=== PATIENT | male | born 1980 | race Caucasian/White ===

== ENCOUNTER 2021-05-07 09:34 | Inpatient (IN) | payer OTHER ==
[2021-05-07] MEDS ORDERED: PIPERACILLIN-TAZOBACTAM 3.375 GM in SODIUM CHLORIDE 0.9% 100 ML IVPB STA (09:51)
[2021-05-07] MEDS ORDERED: ONDANSETRON 4 MG/2 ML VIAL IVP STA (10:14)
[2021-05-07] MEDS ORDERED: HYDROmorphone 1 MG/ML 1 ML SYRINGE IVP STA (10:14)
--- NOTE | 2021-05-07 10:16 | ED ---
Abdominal Pain HPI - General Chief Complaint: Abdominal Pain Stated Complaint: Appendicitis Time Seen by Provider: 05/07/21 09:38 Source: patient, RN notes reviewed Mode of arrival: ambulatory Limitations: no limitations - History of Present Illness Initial Comments: This a 40-year-old male presents emergency from chief complaint of acute appendicitis. Patient was seen in the [facility] and transferred here for acute appendicitis on CT. Patient symptoms started last night worsened overnight including nausea, decreased appetite. Patient had fever, chills. Patient has right lower quadrant abdominal pain. He denies any chest pain shortness breath no cough or cold-like symptoms. - Related Data Allergies Allergy/AdvReac Type Severity Reaction Status Date / Time No Known Allergies Allergy Verified 05/07/21 09:39 Review of Systems ROS Statement: Those systems with pertinent positive or pertinent negative responses have been documented in the HPI. ROS Other: All systems not noted in ROS Statement are negative. Past Medical History Past Medical History: Hypertension Past Surgical History: Hernia Repair Past Psychological History: No Psychological Hx Reported Smoking Status: Current every day smoker Past Alcohol Use History: Occasional Past Drug Use History: None Reported General Exam Limitations: no limitations General appearance: alert, in no apparent distress Head exam: Present: atraumatic, normocephalic, normal inspection Respiratory exam: Present: normal lung sounds bilaterally. Absent: respiratory distress, wheezes, rales, rhonchi, stridor Cardiovascular Exam: Present: regular rate, normal rhythm, normal heart sounds. Absent: systolic murmur, diastolic murmur, rubs, gallop, clicks GI/Abdominal exam: Present: soft, tenderness (Right lower quadrant), normal bowel sounds. Absent: distended, guarding, rebound, rigid Back exam: Absent: CVA tenderness (R), CVA tenderness (L) Course Vital Signs 05/07/21 09:35 Temperature 99.4 F Pulse Rate 82 Respiratory 18 Rate Blood Pressure 96/57 O2 Sat by Pulse 99 Oximetry Medical Decision Making - Medical Decision Making Patient was a transfer from outside hospital for acute appendicitis. Patient admitted to Dr. Alanis. Disposition Clinical Impression: Acute appendicitis Disposition: ADMITTED IP TO THIS HOSP Condition: Fair Referrals: Darrell Roberts MD [Primary Care Provider] - 1-2 days
[2021-05-07] MEDS: SODIUM CHLORIDE 0.9% 1,000 ML IV SCH ×2 (10:43→15:52)
[2021-05-07] MEDS ORDERED: NALOXONE 0.4 MG/ML 1 ML VIAL IV PRN (11:12)
--- NOTE | 2021-05-07 12:07 | P.GSHP ---
History of Present Illness H&P Date: 05/07/21 Chief Complaint: Appendicitis Patient's a 40-year-old man who began developing abdominal pain yesterday. Progressively worse so he went into the ER in [place] and had workup showing acute appendicitis on computed tomography scan. - Review of Systems All systems: negative Past Medical History Past Medical History: Hypertension Past Surgical History: Hernia Repair Past Psychological History: No Psychological Hx Reported Smoking Status: Current every day smoker Past Alcohol Use History: Occasional Past Drug Use History: None Reported Medications and Allergies Home Medications Medication Instructions Recorded Confirmed Type Montelukast Sodium [Singulair] 10 mg PO DAILY 05/07/21 05/07/21 History lisinopriL [Zestril] 10 mg PO DAILY 05/07/21 05/07/21 History Allergies Allergy/AdvReac Type Severity Reaction Status Date / Time No Known Allergies Allergy Verified 05/07/21 10:32 Surgical - Exam Osteopathic Statement: *. No significant issues noted on an osteopathic structural exam other than those noted in the History and Physical/Consult. Vital Signs Temp Pulse Resp BP Pulse Ox 99.4 F 82 18 96/57 99 05/07/21 09:35 05/07/21 09:35 05/07/21 09:35 05/07/21 09:35 05/07/21 09:35 - General well developed, well nourished, no distress - Eyes normal ocular movement - Neck trachea midline - Respiratory normal respiratory effort, clear to auscultation - Cardiovascular Rhythm: regular - Abdomen Abdomen: soft, tender (Right lower quadrant), surgical scars (Scar under the umbilicus from previous hernia repair) Results - Imaging CT scan - abdomen: report reviewed Assessment and Plan (1) Acute appendicitis Current Visit: Yes Status: Acute Code(s): K35.80 - UNSPECIFIED ACUTE APPENDICITIS SNOMED Code(s): 15383663 Plan: Laparoscopic appendectomy possible open. The procedure, risks and complications were discussed. Questions were encouraged and answered. Usual postoperative course was discussed.
[2021-05-07] MEDS: HYDROmorphone 0.5 MG/0.5 ML SYRINGE IVP PRN (12:36)
[2021-05-07] MEDS ORDERED: ceFAZolin 1,000 MG VIAL ONE (13:07)
[2021-05-07] MEDS ORDERED: NEOSTIGMINE 1 MG/ML 10 ML VIAL ONE (13:07)
[2021-05-07] MEDS ORDERED: ONDANSETRON 4 MG/2 ML VIAL ONE (13:07)
[2021-05-07] MEDS ORDERED: DEXAMETHASONE SOD PHOSPHATE 10 MG/ML 1 ML VIAL ONE (13:07)
[2021-05-07] MEDS ORDERED: SODIUM CHLORIDE 0.9% 100 ML BAG ONE (13:07)
[2021-05-07] MEDS ORDERED: GLYCOPYRROLATE 0.2 MG/ML 2 ML VIAL ONE (13:07)
[2021-05-07] MEDS ORDERED: HYDROmorphone (PF) 1 MG/ML ONE (13:07)
[2021-05-07] MEDS ORDERED: LIDOCAINE 1% INJ 10MG/ML (20 ML MDV) ONE (13:07)
[2021-05-07] MEDS ORDERED: ROCURONIUM 10 MG/ML (5 ML VIAL) IV ONE (13:07)
[2021-05-07] MEDS ORDERED: .fentaNYL (PF) 50 MCG/ML 2 ML AMP ONE (13:07)
[2021-05-07] MEDS ORDERED: SUCCINYLCHOLINE CHLORIDE 100 MG/5 ML SYR IV ONE (13:07)
[2021-05-07] MEDS ORDERED: MIDAZOLAM 2 MG/2 ML VIAL ONE (13:07)
[2021-05-07] MEDS ORDERED: PROPOFOL 10 MG/ML 20 ML VIAL IV ONE (13:07)
[2021-05-07] MEDS ORDERED: SODIUM CHLORIDE 0.9% 1,000 ML IV ONE (13:11)
[2021-05-07] MEDS ORDERED: BUPIVACAINE (PF) 0.25% 30 ML VIAL SQ ONE (13:11)
[2021-05-07] MEDS ORDERED: ceFAZolin 1,000 MG VIAL MISCELLANE ONE (13:28)
[2021-05-07] MEDS ORDERED: LACTATED RINGERS 1,000 ML IV ONE (14:00)
--- NOTE | 2021-05-07 14:30 | P.OP ---
Date of Procedure: 05/07/21 Preoperative Diagnosis: Acute appendicitis Postoperative Diagnosis: Acute gangrenous appendicitis Procedure(s) Performed: Laparoscopic appendectomy Anesthesia: STEPH Surgeon: Crystal Alanis Estimated Blood Loss (ml): 10 Pathology: other Condition: stable Disposition: PACU Indications for Procedure: Patient presented with abdominal pain and work at [facility] showing acute appendicitis Description of Procedure: Patient's taken the operative suite where he is prepped and draped in the usual sterile manner under a general endotracheal anesthetic. A supraumbilical incision is made away from a prior umbilical hernia repair. Optical trocar was placed into the abdominal cavity and pneumoperitoneum was established with CO2 gas. The abdominal and pelvic contents were examined. The appendix was not easily seen and therefore the terminal ileum and cecum were mobilized along the white line of Toldt. This was then rotated medially. The appendix was retrocecal. It was going between the terminal ileum and cecum posteriorly. It was gangrenous. It was very tediously dissected free. The base the appendix was ligated using a stapler. The appendix was then tediously dissected free. There is some necrotic fatty tissue and the appendix was falling apart during dissection. The pieces of the appendix was then placed into a specimen retrieval bag. Paracolic gutter and retrocecal area were then copiously irrigated and aspirated. The mucosa all appeared intact. There is no bleeding noted. The pneumoperitoneum was released. The trochars were removed. The specimen retrieval bag was removed. The fascia above the umbilicus was closed w ith 0 Vicryl. The skin incisions were closed with ledy. Sterile dressings were applied. He tolerated the procedure without difficulty and was taken recovery room in satisfactory condition. According to or personnel, all counts were correct.
[2021-05-07] MEDS ORDERED: KETOROLAC 30 MG/ML 1 ML VIAL ONE (14:51)
[2021-05-07] MEDS: KETOROLAC 15 MG/ML 1 ML VIAL IVP SCH (14:52)
[2021-05-07] MEDS: PIPERACILLIN-TAZOBACTAM 3.375 GM in SODIUM CHLORIDE 0.9% 100 ML IVPB SCH (15:43)
[2021-05-07] MEDS: D5-0.45% NACL WITH KCL 20MEQ/L 1,000 ML IV SCH (16:27)
[2021-05-07] MEDS: HYDROmorphone 1 MG/ML 1 ML SYRINGE IVP PRN ×3 (16:28→22:26)
[2021-05-08] MEDS ORDERED: KETOROLAC 15 MG/ML 1 ML VIAL ONE
[2021-05-08] MEDS: PIPERACILLIN-TAZOBACTAM 3.375 GM in SODIUM CHLORIDE 0.9% 100 ML IVPB SCH ×4 (01:00→23:27)
[2021-05-08] MEDS: KETOROLAC 15 MG/ML 1 ML VIAL IVP SCH (01:01)
[2021-05-08] MEDS: HYDROmorphone 1 MG/ML 1 ML SYRINGE IVP PRN ×5 (01:37→19:24)
[2021-05-08] MEDS: SODIUM CHLORIDE 0.9% 1,000 ML IV SCH ×5 (01:40→23:12)
[2021-05-08] MEDS: D5-0.45% NACL WITH KCL 20MEQ/L 1,000 ML IV SCH ×2 (03:37→17:33)
[2021-05-08] MEDS: KETOROLAC 30 MG/ML 1 ML VIAL IVP SCH ×4 (05:56→23:28)
[2021-05-08] MEDS: HYDROcodone/APAP 5-325MG 1 EACH TAB PO PRN ×2 (07:56→16:23)
[2021-05-08 11:00] LABS: Basophils # (A) 0.03 X 10*3/uL (0.00-0.10); Basophils % (A) 0.2 %; Eosinophils # (A) 0 X 10*3/uL (0.04-0.35); Eosinophils % (A) 0 %; HCT 36.9 % (39.6-50.0); HGB 12.3 g/dL (13.0-17.0); Lymphocytes # (A) 1.05 X 10*3/uL (0.90-5.00); Lymphocytes % (A) 5.3 %; MCH 31.1 pg (27.0-32.0); MCHC 33.3 g/dL (32.0-37.0); MCV 93.4 fL (80.0-97.0); Mean Platelet Volume 10.4 fL (9.5-12.2); Monocytes # (A) 1.41 X 10*3/uL (0.20-1.00); Monocytes % (A) 7.1 %; Neutrophils # (A) 17.29 X 10*3/uL (1.80-7.70); Neutrophils % (A) 86.9 %; Platelet Count 310 X 10*3/uL (140-440); RBC 3.95 X 10*6/uL (4.40-5.60); RDW 12.6 % (11.5-14.5); WBC 19.88 X 10*3/uL (4.50-10.00)
--- NOTE | 2021-05-08 12:48 | P.PN ---
Subjective Progress Note Date: 05/08/21 Principal diagnosis: The patient is seen on rounds. Denies any incisional pain. Complaining of some Back pain. No nausea, vomiting or shortness of breath. Tolerating a diet. Am bulating in the halls. Objective - Vital Signs Vital signs: Vital Signs Temp 98.3 F 05/08/21 06:56 Pulse 85 05/08/21 06:56 Resp 18 05/08/21 06:56 BP 110/71 05/08/21 06:56 Pulse Ox 96 05/08/21 06:56 Intake & Output 05/07/21 05/08/21 05/08/21 18:59 06:59 18:59 Intake Total 1740 240 Output Total 670 Balance 1070 240 Weight 131.542 kg Intake: IV 1500 Piperacillin-Tazobactam 3 100 .375 gm In Sodium Chloride 0.9% 100 ml @ 200 mls/hr IVPB ONCE STA Rx#:[id number] Oral 240 240 Output: Urine 650 Estimated Blood Loss 20 Other: # Voids 1 1 1 # Bowel Movements 0 - Constitutional General appearance: Present: cooperative, no acute distress - Respiratory Respiratory: bilateral: CTA - Gastrointestinal General gastrointestinal: Present: normal bowel sounds, soft Localized gastrointestinal: surgical scar: diffuse (Incisions intact, clean and dry) - Labs CBC & Chem 7: 05/08/21 05:22 Labs: Abnormal Lab Results - Last 24 Hours (Table) 05/08/21 Range/Units 05:22 WBC 19.88 H (4.50-10.00) X 10*3/uL RBC 3.95 L (4.40-5.60) X 10*6/uL Hgb 12.3 L (13.0-17.0) g/dL Hct 36.9 L (39.6-50.0) % Immature Gran # 0.10 H (0.00-0.04) X 10*3/uL Neutrophils # 17.29 H (1.80-7.70) X 10*3/uL Monocytes # 1.41 H (0.20-1.00) X 10*3/uL Eosinophils # 0 L (0.04-0.35) X 10*3/uL Assessment and Plan (1) Acute appendicitis Current Visit: Yes Status: Acute Code(s): K35.80 - UNSPECIFIED ACUTE APPENDICITIS SNOMED Code(s): 28052251 (2) Acute gangrenous appendicitis with perforation and peritonitis Current Visit: Yes Status: Acute Code(s): K35.32 - ACUTE APPENDICITIS WITH PERF AND LOC PERITONITIS, W/O ABSCS SNOMED Code(s): 06571915 Plan: Patient does have leukocytosis. The appendix was gangrenous and falling apart at the time of surgery. I recommend he continue IV antibiotics. We'll repeat CBC tomorrow. Encourage ambulation. Progressing slowly
[2021-05-08] MEDS ORDERED: TEMAZEPAM 15 MG CAP PO PRN (13:35)
[2021-05-09] MEDS: HYDROcodone/APAP 5-325MG 1 EACH TAB PO PRN ×3 (00:40→17:12)
[2021-05-09] MEDS: HYDROmorphone 1 MG/ML 1 ML SYRINGE IVP PRN ×4 (02:23→23:44)
[2021-05-09] MEDS: KETOROLAC 30 MG/ML 1 ML VIAL IVP SCH ×3 (06:07→17:11)
[2021-05-09] MEDS: D5-0.45% NACL WITH KCL 20MEQ/L 1,000 ML IV SCH (06:09)
[2021-05-09 07:47] LABS: HCT 37.6 % (39.0-53.0); HGB 12.4 gm/dL (13.0-17.5); MCH 31.2 pg (25.0-35.0); MCHC 32.8 g/dL (31.0-37.0); MCV 95.1 fL (80.0-100.0); Mean Platelet Volume 7.7; Platelet Count 312 k/uL (150-450); RBC 3.96 m/uL (4.30-5.90); RDW 12.1 % (11.5-15.5); WBC 12.5 k/uL (3.8-10.6)
[2021-05-09] MEDS: PIPERACILLIN-TAZOBACTAM 3.375 GM in SODIUM CHLORIDE 0.9% 100 ML IVPB SCH ×3 (07:55→23:43)
[2021-05-09] MEDS: SODIUM CHLORIDE 0.9% 1,000 ML IV SCH ×3 (07:55→23:50)
--- NOTE | 2021-05-09 13:48 | P.PN ---
Subjective Progress Note Date: 05/09/21 The patient is seen on rounds. His pain is improved. Has no appetite. Denies nausea or vomiting Objective - Vital Signs Vital signs: Vital Signs Temp 99.2 F 05/09/21 07:03 Pulse 108 H 05/09/21 07:03 Resp 18 05/09/21 07:03 BP 108/64 05/09/21 07:03 Pulse Ox 95 05/09/21 07:03 Intake & Output 05/08/21 05/09/21 05/09/21 18:59 06:59 18:59 Intake Total 360 Balance 360 Intake: Oral 360 Other: # Voids 2 3 1 # Bowel Movements 0 - Constitutional General appearance: Present: cooperative, no acute distress - Respiratory Respiratory: bilateral: CTA - Gastrointestinal General gastrointestinal: Present: decreased bowel sounds, soft - Labs CBC & Chem 7: 05/09/21 06:36 Labs: Abnormal Lab Results - Last 24 Hours (Table) 05/09/21 Range/Units 06:36 WBC 12.5 H (3.8-10.6) k/uL RBC 3.96 L (4.30-5.90) m/uL Hgb 12.4 L (13.0-17.5) gm/dL Hct 37.6 L (39.0-53.0) % Assessment and Plan (1) Acute appendicitis Current Visit: Yes Status: Acute Code(s): K35.80 - UNSPECIFIED ACUTE APPENDICITIS SNOMED Code(s): 13224716 (2) Acute gangrenous appendicitis with perforation and peritonitis Current Visit: Yes Status: Acute Code(s): K35.32 - ACUTE APPENDICITIS WITH PERF AND LOC PERITONITIS, W/O ABSCS SNOMED Code(s): 76099492 Plan: There is concern for terminal ileum seen on his pathology report. This appendix was very gangrenous and retrocecal and behind the ileum. I will order a computed tomography scan with oral contrast to rule out any sort of leak from the terminal ileum. Make him nothing by mouth. Further recommendations to follow.
[2021-05-09] MEDS: IOPAMIDOL CONTRAST (ORAL USE) VIAL PO PRN ×2 (14:17→15:15)
--- NOTE | 2021-05-09 22:58 | CT ---
EXAMINATION TYPE: CT abdomen pelvis w con DATE OF EXAM: 05/09/2021 COMPARISON: 05/07/2021 CT abdomen pelvis from [facility]. HISTORY: /o leak from terminal ileum. Recent laurent CT DLP: 2039 mGycm Automated exposure control for dose reduction was used. TECHNIQUE: Helical acquisition of images was performed from the lung bases through the pelvis. CONTRAST: Performed with Oral Contrast and with IV Contrast, patient injected with 100 mL of Isovue 370. FINDINGS: LUNG BASES: Normal. LIVER: Normal. BILIARY SYSTEM: Normal. PANCREAS: Normal. SPLEEN: Normal. ADRENALS: Normal. KIDNEYS: Normal. BOWEL: There is oral contrast within the stomach and proximal duodenum. Patient appears status post appendectomy. There is right paracolic gutter haziness and edema, and edema within the right posterio r pararenal space. Within the right lower quadrant, medial to the cecum, there is a 9.0 x 5.3 x 9.2 c m fluid and gas collection within the mesentery. PERITONEUM: Right paracolic gutter edema and pericecal fluid and gas collection as above. There is s mall scattered pneumoperitoneum of the upper abdomen. LYMPH NODES: No lymphadenopathy. PELVIS: Normal. VASCULATURE: Abdominal aorta normal in caliber. MUSCULOSKELETAL: Degenerative changes of the spine. Bilateral L5 pars defects. IMPRESSION: Patient appears status post appendectomy. There is fluid within the right paracolic gutter. Medial to the cecum there is a 9.0 x 5.3 x 9.2 cm focal fluid and gas collection likely representing abscess. There are scattered areas of pneumoperitoneum. Oral contrast is primarily within the stomach. If ther e is concern for abnormal leakage of oral contrast, repeat CT of the pelvis can be performed with ora l contrast reaches the cecum.
[2021-05-10] MEDS: D5-0.45% NACL WITH KCL 20MEQ/L 1,000 ML IV SCH ×2 (04:55→08:43)
[2021-05-10] MEDS: HYDROmorphone 1 MG/ML 1 ML SYRINGE IVP PRN ×3 (04:55→12:58)
[2021-05-10] MEDS: ACETAMINOPHEN TAB 325 MG TAB PO PRN (08:10)
[2021-05-10] MEDS: PIPERACILLIN-TAZOBACTAM 3.375 GM in SODIUM CHLORIDE 0.9% 100 ML IVPB SCH ×2 (08:11→14:44)
[2021-05-10] MEDS ORDERED: SODIUM CHLORIDE 0.9% 500 ML 500 ML IV ONE (08:12)
[2021-05-10 08:22] LABS: HCT 37.1 % (39.0-53.0); HGB 12.2 gm/dL (13.0-17.5); MCH 30.8 pg (25.0-35.0); MCHC 32.9 g/dL (31.0-37.0); MCV 93.6 fL (80.0-100.0); Platelet Count 363 k/uL (150-450); RBC 3.97 m/uL (4.30-5.90)
[2021-05-10 08:36] LABS: African American GFR (CKD) >90 (>60 ml/min/1.73 sqM); Anion Gap 10 mmol/L; Blood Urea Nitrogen 23 mg/dL (9-20); Calcium 8.5 mg/dL (8.4-10.2); Carbon Dioxide 23 mmol/L (22-30); Chloride 99 mmol/L (98-107); Glucose 104 mg/dL (74-99); Non-African American GFR(CKD) >90 (>60 ml/min/1.73 sqM); Potassium 4.3 mmol/L (3.5-5.1); Sodium 132 mmol/L (137-145)
[2021-05-10] MEDS: SODIUM CHLORIDE 0.9% 1,000 ML IV SCH ×3 (08:43→21:45)
[2021-05-10 09:23] LABS: Glucose,Whole Blood 107 mg/dL (75-99)
--- NOTE | 2021-05-10 09:40 | P.PN ---
Subjective Progress Note Date: 05/10/21 The patient is seen on rounds. He went for CT yesterday afternoon. I was not called the report until about midnight. He is complaining of not feeling well today. He is hungry and thirsty. Denies nausea or vomiting Objective - Vital Signs Vital signs: Vital Signs Temp 100.9 F H 05/10/21 08:00 Pulse 127 H 05/10/21 08:00 Resp 18 05/10/21 08:00 BP 142/70 05/10/21 08:00 Pulse Ox 95 05/10/21 08:00 Intake & Output 05/09/21 05/10/21 05/10/21 18:59 06:59 18:59 Intake Total 120 Balance 120 Intake: Oral 120 Other: Voiding Method Toilet # Voids 1 - Constitutional Constitutional Comment(s): appears ill today General appearance: Present: cooperative - Respiratory Respiratory: bilateral: CTA - Gastrointestinal General gastrointestinal: Present: decreased bowel sounds, distended - Labs CBC & Chem 7: 05/10/21 07:00 05/10/21 07:00 Labs: Abnormal Lab Results - Last 24 Hours (Table) 05/10/21 05/10/21 05/10/21 Range/Units 07:00 07:00 09:22 WBC 16.0 H (3.8-10.6) k/uL RBC 3.97 L (4.30-5.90) m/uL Hgb 12.2 L (13.0-17.5) gm/dL Hct 37.1 L (39.0-53.0) % Sodium 132 L (137-145) mmol/L BUN 23 H (9-20) mg/dL Glucose 104 H (74-99) mg/dL POC Glucose (mg/dL) 107 H (75-99) mg/dL - Imaging and Cardiology CT scan - abdomen: report reviewed Assessment and Plan (1) Acute appendicitis Current Visit: Yes Status: Acute Code(s): K35.80 - UNSPECIFIED ACUTE APPENDICITIS SNOMED Code(s): 54953991 (2) Acute gangrenous appendicitis with perforation and peritonitis Current Visit: Yes Status: Acute Code(s): K35.32 - ACUTE APPENDICITIS WITH PERF AND LOC PERITONITIS, W/O ABSCS SNOMED Code(s): 35946833 (3) Small bowel perforation Current Visit: Yes Status: Acute Code(s): K63.1 - PERFORATION OF INTESTINE (NONTRAUMATIC) SNOMED Code(s): 400744918 Plan: CT scan shows fluid collection in the right abdomen. His appendix was markedly gangrenous and falling apart. It was posterior to the ileum and cecum. Perforation is likely due to gangrenous changes and surrounding inflammation. Recommend he go to the OR for ex lap. This may able to be debrided and closed. May require a segmental bowel resection, less likely ostomy formation. We will do a washout placed drainage tubes continue IV antibiotics. The procedure risks and complications were discussed. Questions were encouraged and answered.
[2021-05-10] MEDS: HYDROcodone/APAP 5-325MG 1 EACH TAB PO PRN (10:33)
[2021-05-10 10:58] LABS: Partial Thromboplastin Time 24.7 sec (22.0-30.0); Prothrombin Time 11.1 sec (9.0-12.0)
[2021-05-10] MEDS: ONDANSETRON 4 MG/2 ML VIAL IVP PRN (13:42)
[2021-05-10] MEDS ORDERED: GLYCOPYRROLATE 0.2 MG/ML 2 ML VIAL ONE (14:03)
[2021-05-10] MEDS ORDERED: .fentaNYL (PF) 50 MCG/ML 2 ML AMP ONE (14:03)
[2021-05-10] MEDS ORDERED: MIDAZOLAM 2 MG/2 ML VIAL ONE (14:03)
[2021-05-10] MEDS ORDERED: ROCURONIUM 10 MG/ML (5 ML VIAL) IV ONE (14:03)
[2021-05-10] MEDS ORDERED: PROPOFOL 10 MG/ML 20 ML VIAL IV ONE (14:03)
[2021-05-10] MEDS ORDERED: LIDOCAINE 1% INJ 10MG/ML (20 ML MDV) ONE (14:03)
[2021-05-10] MEDS ORDERED: HYDROmorphone (PF) 1 MG/ML ONE (14:03)
[2021-05-10] MEDS ORDERED: .MORPHINE SULFATE (INJ) 10 MG/ML SYRINGE ONE (14:03)
[2021-05-10] MEDS ORDERED: NEOSTIGMINE 1 MG/ML 10 ML VIAL ONE (14:03)
[2021-05-10] MEDS ORDERED: SUCCINYLCHOLINE CHLORIDE 100 MG/5 ML SYR IV ONE (14:03)
[2021-05-10] MEDS: IV FLUID CONTINUATION 1,000 ML IV ONE ×2 (14:08→17:48)
[2021-05-10] MEDS ORDERED: SODIUM CHLORIDE 0.9% 1,000 ML IV ONE ×2 (14:10)
[2021-05-10] MEDS ORDERED: BUPIVACAIN-EPI 0.25%-1:200,000 30 ML VIAL SQ ONE (14:48)
[2021-05-10] MEDS ORDERED: LACTATED RINGERS 1,000 ML IV ONE ×2 (14:56→16:02)
--- NOTE | 2021-05-10 16:30 | P.OP ---
Date of Procedure: 05/10/21 Preoperative Diagnosis: Acute gangrenous appendicitis with small bowel perforation Postoperative Diagnosis: Acute gangrenous appendicitis with small bowel perforation and abscess Procedure(s) Performed: Exploratory laparotomy with ileocecectomy Anesthesia: STEPH Surgeon: Crystal Alanis Estimated Blood Loss (ml): 150 Pathology: other Condition: stable Disposition: PACU Indications for Procedure: The patient had a laparoscopic appendectomy for gangrenous appendicitis. Concern on the pathology was for some small bowel mucosa from the terminal ileum. A CT showed a fluid collection near the cecum Description of Procedure: The patient was taken the operative suite where he is prepped and draped in the usual sterile manner under general endotracheal anesthetic. A right paramedian incision was made. Subcutaneous tissues were divided. The fascia was incised. The muscle was split. The posterior fascia and peritoneum were incised. The abdominal cavity was entered. There is purulent bloody fluid on the right side of the abdomen. There was some phlegmon present. Terminal ileum and cecum were mobilized along the white line of Toldt. A Bookwalter retractor was placed. The bowel was brought up through the incision. The terminal ileum was run. There was some phlegmon which peeled away. At the terminal ileum or the appendix had been sitting there was a full-thickness perforation. It also appeared that the appendiceal stump had broken down and was leaking. Decision was made to do a resection. Opening was made in the mesentery of the small bowel and a RONNI stapler was placed and fired. The mesentery was divided with LigaSure. Site was then chosen on the mid descending colon and RONNI stapler was placed and fired where the tissue was pink and viable. Everything was in irrigated and aspirated. Gloves were changed. Antimesenteric border of the small bowel was tacked to the cecum. A small opening was made in each limb of the bowel and a RONNI stapler was placed and fired. The defect was closed in a 2 layered manner using 3-0 Vicryl. The anastomosis was reinforced with 3-0 Vicryl Lembert sutures. The abdomen was then irrigated and aspirated. Small bowel was allowed to lay in gentle loops. 2 small incisions were made and drains were placed. One was placed down into the pelvis and the other along the right paracolic gutter. A sterile fashion peritoneum were closed with 1 PDS. Subcutaneous the muscle layers were irrigated. Anterior fascia was closed with 1 PDS. Subcutaneous tissues were irrigated. The wound was packed. He tolerated the procedure without difficulty and was taken recovery room in satisfactory condition. According to or personnel, WERE correct.
[2021-05-10] MEDS: LACTATED RINGERS 1,000 ML IV SCH (17:47)
[2021-05-10] MEDS: METOCLOPRAMIDE 5 MG/ML 2 ML VIAL IVP SCH (17:52)
[2021-05-10] MEDS: KETOROLAC 30 MG/ML 1 ML VIAL IVP SCH (18:09)
[2021-05-10] MEDS: HYDROmorphone 0.5 MG/0.5 ML SYRINGE IVP PRN ×2 (19:50→23:17)
[2021-05-11] MEDS: PIPERACILLIN-TAZOBACTAM 3.375 GM in SODIUM CHLORIDE 0.9% 100 ML IVPB SCH ×3 (00:35→15:35)
[2021-05-11] MEDS: KETOROLAC 30 MG/ML 1 ML VIAL IVP SCH ×4 (00:35→17:58)
[2021-05-11] MEDS: METOCLOPRAMIDE 5 MG/ML 2 ML VIAL IVP SCH ×4 (00:35→17:58)
[2021-05-11] MEDS: HYDROmorphone 1 MG/ML 1 ML SYRINGE IVP PRN ×8 (02:35→23:25)
[2021-05-11] MEDS: SODIUM CHLORIDE 0.9% 1,000 ML IV SCH ×3 (06:01→23:15)
[2021-05-11] MEDS ORDERED: HYDROmorphone 0.5 MG/0.5 ML SYRINGE IVP PRN (07:00)
[2021-05-11] MEDS: LACTATED RINGERS 1,000 ML IV SCH (07:33)
[2021-05-11] MEDS: lisinopriL 10 MG TAB PO SCH (07:39)
[2021-05-11] MEDS: MONTELUKAST 10 MG TAB PO SCH (07:39)
[2021-05-11] MEDS: PANTOPRAZOLE 40 MG/10 ML VIAL IV SCH (07:44)
[2021-05-11] MEDS: ENOXAPARIN 40 MG/0.4 ML SYRINGE SQ SCH (07:44)
[2021-05-11 10:53] LABS: Basophils # (A) 0.05 X 10*3/uL (0.00-0.10); Basophils % (A) 0.5 %; Eosinophils # (A) 0.01 X 10*3/uL (0.04-0.35); Eosinophils % (A) 0.1 %; HCT 32.4 % (39.6-50.0); HGB 10.5 g/dL (13.0-17.0); Lymphocytes # (A) 0.61 X 10*3/uL (0.90-5.00); MCH 30.5 pg (27.0-32.0); MCHC 32.4 g/dL (32.0-37.0); MCV 94.2 fL (80.0-97.0); Mean Platelet Volume 10.3 fL (9.5-12.2); Monocytes # (A) 0.92 X 10*3/uL (0.20-1.00); Neutrophils % (A) 82.8 %; Platelet Count 376 X 10*3/uL (140-440); RBC 3.44 X 10*6/uL (4.40-5.60); RDW 13.2 % (11.5-14.5); WBC 10.25 X 10*3/uL (4.50-10.00)
[2021-05-11 13:05] LABS: Albumin 2.7 g/dL (3.8-4.9); Albumin/Globulin Ratio 1.18 (1.60-3.17); Anion Gap 11.9 mmol/L (4.00-12.00); BUN/Creat Ratio 26.85 Ratio (12.00-20.00); Carbon Dioxide 21.4 mmol/L (21.6-31.8); Globulin 2.3 g/dL (1.6-3.3); Non-African American GFR(CKD) 85.4 (60.0-200.0); Potassium 4.4 mmol/L (3.5-5.5); Total Bilirubin 0.5 mg/dL (0.30-1.20)
[2021-05-12] MEDS: PIPERACILLIN-TAZOBACTAM 3.375 GM in SODIUM CHLORIDE 0.9% 100 ML IVPB SCH ×4 (00:16→23:50)
[2021-05-12] MEDS: KETOROLAC 30 MG/ML 1 ML VIAL IVP SCH ×3 (00:16→12:03)
[2021-05-12] MEDS: METOCLOPRAMIDE 5 MG/ML 2 ML VIAL IVP SCH ×3 (00:17→12:03)
[2021-05-12] MEDS: HYDROmorphone 1 MG/ML 1 ML SYRINGE IVP PRN ×7 (02:32→23:50)
[2021-05-12] MEDS: SODIUM CHLORIDE 0.9% 1,000 ML IV SCH ×3 (06:03→21:00)
[2021-05-12] MEDS: PANTOPRAZOLE 40 MG/10 ML VIAL IV SCH (08:57)
[2021-05-12] MEDS: lisinopriL 10 MG TAB PO SCH (08:57)
[2021-05-12] MEDS: MONTELUKAST 10 MG TAB PO SCH (08:57)
[2021-05-12] MEDS: ENOXAPARIN 40 MG/0.4 ML SYRINGE SQ SCH (08:57)
--- NOTE | 2021-05-12 13:20 | P.PN ---
Subjective Progress Note Date: 05/12/21 The patient is postoperative day 2 ileocecectomy for abscess and leak. He feels much better today. He is began passing flatus and has had several bowel movements. His thirsty. He would like that G removed. Pain is controlled. No chest pain or shortness of breath Objective - Vital Signs Vital signs: Vital Signs Temp 98.1 F 05/12/21 07:05 Pulse 114 H 05/12/21 08:00 Resp 17 05/12/21 08:00 BP 108/70 05/12/21 07:05 Pulse Ox 97 05/12/21 07:05 Intake & Output 05/11/21 05/12/21 05/12/21 18:59 06:59 18:59 Intake Total 1040 Output Total 550 Balance 490 Intake: IV 1040 Piperacillin-Tazobactam 3 100 .375 gm In Sodium Chloride 0.9% 100 ml @ 25 mls/hr IVPB Q8HR DIDIER Rx# :[id number] Sodium Chloride 0.9% 1, 940 000 ml @ 130 mls/hr IV . Q7H42M DIDIER Rx#:[id number] Output: Drainage 100 Bilateral Lower Abdomen 100 Urine 450 Uretheral ([place]) 450 Other: Voiding Method Indwelling Catheter Urinal Urinal # Voids 1 2 - Constitutional General appearance: Present: cooperative, no acute distress - Respiratory Respiratory: bilateral: CTA - Cardiovascular Rhythm: regular - Gastrointestinal General gastrointestinal: Present: normal bowel sounds, soft Localized gastrointestinal: surgical scar: diffuse (Incision is open. No cellulitis or abscess. Dressing is clean) - Labs CBC & Chem 7: 05/11/21 05:58 05/11/21 05:58 Assessment and Plan (1) Acute appendicitis Current Visit: Yes Status: Acute Code(s): K35.80 - UNSPECIFIED ACUTE APPENDICITIS SNOMED Code(s): 85708719 (2) Acute gangrenous appendicitis with perforation and peritonitis Current Visit: Yes Status: Acute Code(s): K35.32 - ACUTE APPENDICITIS WITH PERF AND LOC PERITONITIS, W/O ABSCS SNOMED Code(s): 71882739 (3) Small bowel perforation Current Visit: Yes Status: Acute Code(s): K63.1 - PERFORATION OF INTESTINE (NONTRAUMATIC) SNOMED Code(s): 569208814 Plan: NG tube will be discontinued. Started on clear liquids and advance as tolerated in the morning. Continue IV antibiotics. We'll monitor him over the weekend. As long as the incision looks good, he can be partially closed on Saturday. is at bedside. Questions were encouraged and answered.
[2021-05-12] MEDS: LACTATED RINGERS 1,000 ML IV SCH (13:50)
[2021-05-12] MEDS: HYDROcodone/APAP 5-325MG 1 EACH TAB PO PRN (16:33)
[2021-05-13] MEDS: HYDROmorphone 1 MG/ML 1 ML SYRINGE IVP PRN ×7 (03:24→21:38)
[2021-05-13] MEDS: SODIUM CHLORIDE 0.9% 1,000 ML IV SCH ×3 (05:43→21:38)
[2021-05-13] MEDS: lisinopriL 10 MG TAB PO SCH (08:46)
[2021-05-13] MEDS: MONTELUKAST 10 MG TAB PO SCH (08:46)
[2021-05-13] MEDS: PANTOPRAZOLE 40 MG/10 ML VIAL IV SCH (08:47)
[2021-05-13] MEDS: PIPERACILLIN-TAZOBACTAM 3.375 GM in SODIUM CHLORIDE 0.9% 100 ML IVPB SCH ×2 (08:48→15:25)
[2021-05-13] MEDS: ENOXAPARIN 40 MG/0.4 ML SYRINGE SQ SCH (08:48)
[2021-05-13] MEDS: HYDROcodone/APAP 5-325MG 1 EACH TAB PO PRN ×3 (09:25→21:37)
--- NOTE | 2021-05-13 11:13 | P.PN ---
Subjective Progress Note Date: 05/13/21 Principal diagnosis: 40-year-old male postop day 3 status post open right hemicolectomy for ruptured appendicitis with postoperative stump blowout Patient resting quietly notes no nausea or vomiting patient has been passing flatus and has ambulated Objective - Vital Signs Vital signs: Vital Signs Temp 99.1 F 05/13/21 08:00 Pulse 66 05/13/21 08:00 Resp 18 05/13/21 08:00 BP 127/76 05/13/21 08:00 Pulse Ox 97 05/13/21 08:00 Intake & Output 05/12/21 05/13/21 05/13/21 18:59 06:59 18:59 Intake Total 500 237 Balance 500 237 Weight 131.542 kg Intake: Oral 500 237 Other: Voiding Method Urinal Urinal # Voids 2 - Constitutional Constitutional Comment(s): Patient resting quietly, no acute distress - EENT Eyes: Present: normal appearance - Respiratory Respiratory: bilateral: CTA - Cardiovascular Rhythm: regular (Protuberant mild tenderness noted and generalized fashion, open wound right paramedian clean) - Labs CBC & Chem 7: 05/11/21 05:58 05/11/21 05:58 Assessment and Plan Assessment: 40-year-old male status post right hemicolectomy return of bowel function noted afebrile hemodynamically stable Plan: We'll advance diet to low residue Continue IV fluids we'll taper to 100 mL per hour Attending IV antibiotics Plan for secondary wound closure Saturday pulmonary toilet and ambulation
[2021-05-13] MEDS: LACTATED RINGERS 1,000 ML IV SCH (17:30)
[2021-05-14] MEDS: PIPERACILLIN-TAZOBACTAM 3.375 GM in SODIUM CHLORIDE 0.9% 100 ML IVPB SCH ×3 (00:46→20:53)
[2021-05-14] MEDS: HYDROmorphone 1 MG/ML 1 ML SYRINGE IVP PRN ×9 (00:46→23:57)
[2021-05-14] MEDS: HYDROcodone/APAP 5-325MG 1 EACH TAB PO PRN ×3 (03:54→22:35)
[2021-05-14] MEDS: MONTELUKAST 10 MG TAB PO SCH (09:07)
[2021-05-14] MEDS: PANTOPRAZOLE 40 MG TABLET PO SCH (09:07)
[2021-05-14] MEDS: lisinopriL 10 MG TAB PO SCH (09:07)
[2021-05-14] MEDS: ENOXAPARIN 40 MG/0.4 ML SYRINGE SQ SCH (09:07)
[2021-05-14] MEDS: SODIUM CHLORIDE 0.9% 1,000 ML IV SCH ×2 (09:16→20:54)
--- NOTE | 2021-05-14 11:44 | P.PN ---
Subjective Progress Note Date: 05/14/21 Principal diagnosis: Postoperative day 4 auditory laparotomy with ileocecal resection for ruptured appendicitis postoperative leak An examination of patient's wound this morning RN noted possible fascial separation at superior aspect Objective - Vital Signs Vital signs: Vital Signs Temp 98.6 F 05/14/21 07:43 Pulse 66 05/14/21 07:43 Resp 16 05/14/21 07:43 BP 119/80 05/14/21 07:43 Pulse Ox 94 L 05/14/21 07:43 Intake & Output 05/13/21 05/14/21 05/14/21 18:59 06:59 18:59 Intake Total 417 250 Balance 417 250 Intake: Oral 417 250 Other: # Voids 2 3 - Constitutional Constitutional Comment(s): No acute distress, patient lying in bed - Respiratory Respiratory: negative: CTA (Patient experiencing no difficulty, in breathing denies shortness of breath) - Cardiovascular Rhythm: regular - Gastrointestinal Gastrointestinal Comment(s): Abdomen protuberant Patient has open wound, right paramedian area On examination of the superior aspect there appears to be some separation of the fascia There is no evisceration - Neurologic Neurologic Comment(s): Awake, alert and oriented 3 - Labs CBC & Chem 7: 05/11/21 05:58 05/11/21 05:58 Labs: Repeat CBC and lites ordered this morning results are pending Assessment and Plan Assessment: 40-year-old male, postop day 4 exploratory lap with ileocecal resection Disruption fascia superior aspect of the wound Hemodynamically stable Plan: Situation was discussed with patient's primary surgeon Dr. Zeke Alanis indicates she would like a wound VAC placed This was discussed with the patient as well as his nurse, specific use of white foam at the base was discussed A binder will be ordered for the patient Further management with possible delayed closure will be per the direction of Dr. Alanis Continue IV antibiotic treatment, we'll resume full liquid diet for now Time with Patient: Greater than 30 (Proximally 45 minutes spent with patient, discussion with nursing staff and discussing with Dr. Alanis)
[2021-05-14 12:25] LABS: HCT 27.5 % (39.6-50.0); HGB 8.8 g/dL (13.0-17.0); MCH 30.9 pg (27.0-32.0); MCV 96.5 fL (80.0-97.0); Platelet Count 483 X 10*3/uL (140-440); RBC 2.85 X 10*6/uL (4.40-5.60); RDW 14.1 % (11.5-14.5); WBC 17.78 X 10*3/uL (4.50-10.00)
[2021-05-14 13:05] LABS: African American GFR (CKD) 126.1 (60.0-200.0); Anion Gap 11.8 mmol/L (4.00-12.00); Blood Urea Nitrogen 14.6 mg/dL (9.0-27.0); Carbon Dioxide 23.2 mmol/L (21.6-31.8); Non-African American GFR(CKD) 108.8 (60.0-200.0); Potassium 3.9 mmol/L (3.5-5.5)
[2021-05-15] MEDS: HYDROmorphone 1 MG/ML 1 ML SYRINGE IVP PRN ×6 (03:06→22:39)
[2021-05-15] MEDS: PIPERACILLIN-TAZOBACTAM 3.375 GM in SODIUM CHLORIDE 0.9% 100 ML IVPB SCH ×3 (03:08→16:40)
[2021-05-15] MEDS: SODIUM CHLORIDE 0.9% 1,000 ML IV SCH ×2 (03:09→14:28)
[2021-05-15] MEDS: HYDROcodone/APAP 5-325MG 1 EACH TAB PO PRN (08:47)
[2021-05-15] MEDS: MONTELUKAST 10 MG TAB PO SCH (08:47)
[2021-05-15] MEDS: lisinopriL 10 MG TAB PO SCH (08:47)
[2021-05-15] MEDS: ENOXAPARIN 40 MG/0.4 ML SYRINGE SQ SCH (08:48)
[2021-05-15] MEDS: PANTOPRAZOLE 40 MG TABLET PO SCH (08:48)
[2021-05-15 10:21] LABS: Basophils # (A) 0.1 k/uL (0-0.2); Basophils % (A) 1 %; Eosinophils # (A) 0.3 k/uL (0-0.7); Eosinophils % (A) 1 %; HCT 29.4 % (39.0-53.0); Lymphocytes # (A) 1.2 k/uL (1.0-4.8); Lymphocytes % (A) 7 %; MCH 30.7 pg (25.0-35.0); MCHC 32.8 g/dL (31.0-37.0); MCV 93.7 fL (80.0-100.0); Mean Platelet Volume 7.3; Monocytes # (A) 0.9 k/uL (0-1.0); Monocytes % (A) 5 %; Neutrophils # (A) 15.2 k/uL (1.3-7.7); Neutrophils % (A) 82 %; Platelet Count 582 k/uL (150-450); RBC 3.13 m/uL (4.30-5.90); RDW 13.1 % (11.5-15.5); WBC 18.5 k/uL (3.8-10.6)
[2021-05-15 10:48] LABS: HGB 9.6 gm/dL (13.0-17.5)
--- NOTE | 2021-05-15 14:34 | P.PN ---
Subjective Progress Note Date: 05/15/21 The patient is seen on rounds. Pain is controlled. TOlerating a diet. Has had bowel movement. Overall feels better than preop Objective - Vital Signs Vital signs: Vital Signs Temp 98.7 F 05/15/21 14:00 Pulse 107 H 05/15/21 14:00 Resp 16 05/15/21 14:00 BP 195/76 05/15/21 14:00 Pulse Ox 96 05/15/21 14:00 Intake & Output 05/14/21 05/15/21 05/15/21 18:59 06:59 18:59 Intake Total 90 Output Total 600 Balance 90 -600 Intake: Oral 90 Output: Urine 600 Other: Voiding Method Urinal # Voids 5 - Constitutional General appearance: Present: cooperative, no acute distress - Respiratory Respiratory: bilateral: CTA, diminished (slightly at the bases) - Gastrointestinal Gastrointestinal Comment(s): wound vac in place. No cellulitis. Reviewed finding with Dr Isaac. Some dehisense of superficial fascia General gastrointestinal: Present: normal bowel sounds, soft - Labs CBC & Chem 7: 05/15/21 09:18 05/14/21 06:50 Labs: Abnormal Lab Results - Last 24 Hours (Table) 05/15/21 Range/Units 09:18 WBC 18.5 H (3.8-10.6) k/uL RBC 3.13 L (4.30-5.90) m/uL Hgb 9.6 L D (13.0-17.5) gm/dL Hct 29.4 L (39.0-53.0) % Plt Count 582 H (150-450) k/uL Neutrophils # 15.2 H (1.3-7.7) k/uL Assessment and Plan (1) Acute appendicitis Current Visit: Yes Status: Acute Code(s): K35.80 - UNSPECIFIED ACUTE APPENDI CITIS SNOMED Code(s): 33474558 (2) Acute gangrenous appendicitis with perforation and peritonitis Current Visit: Yes Status: Acute Code(s): K35.32 - ACUTE APPENDICITIS WITH PERF AND LOC PERITONITIS, W/O ABSCS SNOMED Code(s): 53361375 (3) Small bowel perforation Current Visit: Yes Status: Acute Code(s): K63.1 - PERFORATION OF INTESTINE (NONTRAUMATIC) SNOMED Code(s): 726961106 Plan: Will personally change wound vac tomorrow. Follow CBC. Continue IV antibioticsa. Arrange wound vac for discharge. Questions encouraged and answered
[2021-05-15] MEDS: metroNIDAZOLE-NS PMX 500 MG in SALINE 1 100ML.BAG IVPB SCH ×2 (14:50→22:39)
[2021-05-15] MEDS: ACETAMINOPHEN TAB 325 MG TAB PO PRN (19:30)
[2021-05-16] MEDS: PIPERACILLIN-TAZOBACTAM 3.375 GM in SODIUM CHLORIDE 0.9% 100 ML IVPB SCH ×3 (00:53→17:09)
[2021-05-16] MEDS: SODIUM CHLORIDE 0.9% 1,000 ML IV SCH ×3 (00:54→20:20)
[2021-05-16] MEDS: HYDROmorphone 1 MG/ML 1 ML SYRINGE IVP PRN ×6 (01:42→20:18)
[2021-05-16] MEDS: HYDROcodone/APAP 5-325MG 1 EACH TAB PO PRN ×4 (04:01→17:08)
[2021-05-16 06:36] LABS: HCT 30.2 % (39.0-53.0); HGB 9.7 gm/dL (13.0-17.5); MCH 30.9 pg (25.0-35.0); MCHC 32.1 g/dL (31.0-37.0); MCV 96.2 fL (80.0-100.0); Mean Platelet Volume 7.2; Platelet Count 596 k/uL (150-450); RBC 3.14 m/uL (4.30-5.90); RDW 12.7 % (11.5-15.5); WBC 17.3 k/uL (3.8-10.6)
[2021-05-16 07:08] LABS: African American GFR (CKD) >90 (>60 ml/min/1.73 sqM); Anion Gap 7 mmol/L; Blood Urea Nitrogen 13 mg/dL (9-20); Carbon Dioxide 28 mmol/L (22-30); Chloride 100 mmol/L (98-107); Glucose 100 mg/dL (74-99); Non-African American GFR(CKD) >90 (>60 ml/min/1.73 sqM); Potassium 4.3 mmol/L (3.5-5.1); Sodium 135 mmol/L (137-145)
[2021-05-16] MEDS: PANTOPRAZOLE 40 MG TABLET PO SCH (08:10)
[2021-05-16] MEDS: lisinopriL 10 MG TAB PO SCH (08:16)
[2021-05-16] MEDS: ENOXAPARIN 40 MG/0.4 ML SYRINGE SQ SCH (08:16)
[2021-05-16] MEDS: MONTELUKAST 10 MG TAB PO SCH (08:16)
[2021-05-16] MEDS: metroNIDAZOLE-NS PMX 500 MG in SALINE 1 100ML.BAG IVPB SCH ×3 (08:19→23:07)
--- NOTE | 2021-05-16 14:57 | P.PN ---
Subjective Progress Note Date: 05/16/21 Irrigation is seen on rounds. The pain is gradually improving. He did have a fever last night. Yesterday he had some diarrhea and blood. He's passed flatus today and a small formed stool. Overall he feels better and is asking about going home Objective - Vital Signs Vital signs: Vital Signs Temp 98.9 F 05/16/21 08:00 Pulse 102 H 05/16/21 08:00 Resp 18 05/16/21 08:00 BP 138/76 05/16/21 08:00 Pulse Ox 99 05/16/21 08:00 Intake & Output 05/15/21 05/16/21 05/16/21 18:59 06:59 18:59 Other: Voiding Method Urinal Urinal Urinal # Voids 1 - Constitutional General appearance: Present: cooperative, no acute distress - Respiratory Respiratory: bilateral: CTA - Gastrointestinal Gastrointestinal Comment(s): The wound VAC dressing was removed. The superior portion of the anterior fascial closure has dehisced. There is a little exudate present along with some cloudy fluid. Culture was obtained. There is good granulation tissue forming in the majority of the wound. Wound was then irrigated. A new wound VAC was applied General gastrointestinal: Present: normal bowel sounds, soft - Labs CBC & Chem 7: 05/16/21 05:55 05/16/21 05:55 Labs: Abnormal Lab Results - Last 24 Hours (Table) 05/16/21 05/16/21 Range/Units 05:55 05:55 WBC 17.3 H (3.8-10.6) k/uL RBC 3.14 L (4.30-5.90) m/uL Hgb 9.7 L (13.0-17.5) gm/dL Hct 30.2 L (39.0-53.0) % Plt Count 596 H (150-450) k/uL Sodium 135 L (137-145) mmol/L Glucose 100 H (74-99) mg/dL Calcium 8.0 L (8.4-10.2) mg/dL Assessment and Plan (1) Acute appendicitis Current Visit: Yes Status: Acute Code(s): K35.80 - UNSPECIFIED ACUTE APPENDICITIS SNOMED Code(s): 64679881 (2) Acute gangrenous appendicitis with perforation and peritonitis Current Visit: Yes Status: Acute Code(s): K35.32 - ACUTE APPENDICITIS WITH PERF AND LOC PERITONITIS, W/O ABSCS SNOMED Code(s): 04569997 (3) Small bowel perforation Current Visit: Yes Status: Acute Code(s): K63.1 - PERFORATION OF INTESTINE (NONTRAUMATIC) SNOMED Code(s): 597728451 Plan: Patient did run a fever. We'll send the wound culture off to see if antibiotics need to be changed. Blood culture if he spikes another fever. Send a urine sample. If he has recurrent diarrhea we'll send will for C. diff. Follow him closely. Possibly do a CAT scan of the abdomen. Further recommendations to follow.
[2021-05-16 18:32] LABS: Appearance,Urine Clear (Clear); Bilirubin,Urine Negative (Negative); Blood,Urine Negative (Negative); Color,Urine Yellow; Glucose,Urine (UA) Negative (Negative); Ketones,Urine Trace (Negative); Leukocyte Esterase,Urine Trace (Negative); Mucus,Urine Rare /hpf; Nitrite,Urine Negative (Negative); Protein,Urine Negative (Negative); RBC,Urine 1 /hpf (0-5); Specific Gravity,Urine 1.019 (1.001-1.035); WBC,Urine 3 /hpf (0-5)
[2021-05-16] MEDS: NAPROXEN 250 MG TAB PO SCH (20:18)
[2021-05-16] MEDS: ACETAMINOPHEN TAB 325 MG TAB PO PRN (20:19)
[2021-05-17] MEDS: HYDROcodone/APAP 5-325MG 1 EACH TAB PO PRN ×4 (00:50→23:05)
[2021-05-17] MEDS: PIPERACILLIN-TAZOBACTAM 3.375 GM in SODIUM CHLORIDE 0.9% 100 ML IVPB SCH ×3 (00:51→17:36)
[2021-05-17] MEDS: SODIUM CHLORIDE 0.9% 1,000 ML IV SCH ×2 (05:52→19:27)
[2021-05-17 07:21] LABS: HCT 29.3 % (39.0-53.0); HGB 9.5 gm/dL (13.0-17.5); MCH 31.4 pg (25.0-35.0); MCHC 32.5 g/dL (31.0-37.0); MCV 96.8 fL (80.0-100.0); Mean Platelet Volume 7.2; Platelet Count 538 k/uL (150-450); RBC 3.03 m/uL (4.30-5.90); RDW 12.7 % (11.5-15.5); WBC 15.6 k/uL (3.8-10.6)
[2021-05-17] MEDS: ENOXAPARIN 40 MG/0.4 ML SYRINGE SQ SCH (08:00)
[2021-05-17] MEDS: PANTOPRAZOLE 40 MG TABLET PO SCH (08:01)
[2021-05-17] MEDS: lisinopriL 10 MG TAB PO SCH (08:01)
[2021-05-17] MEDS: MONTELUKAST 10 MG TAB PO SCH (08:01)
[2021-05-17] MEDS: metroNIDAZOLE-NS PMX 500 MG in SALINE 1 100ML.BAG IVPB SCH ×2 (08:01→16:17)
[2021-05-17] MEDS: HYDROmorphone 1 MG/ML 1 ML SYRINGE IVP PRN ×3 (08:01→20:58)
[2021-05-17] MEDS: NAPROXEN 250 MG TAB PO SCH ×2 (09:41→20:55)
--- NOTE | 2021-05-17 15:51 | P.PN ---
Subjective Progress Note Date: 05/17/21 The patient is seen on rounds. He's feeling better today. Tolerating a soft diet. No diarrhea. No nausea or vomiting. Objective - Vital Signs Vital signs: Vital Signs Temp 98.2 F 05/17/21 15:27 Pulse 91 05/17/21 15:27 Resp 16 05/17/21 15:27 BP 130/73 05/17/21 15:27 Pulse Ox 98 05/17/21 15:27 Intake & Output 05/16/21 05/17/21 05/17/21 18:59 06:59 18:59 Intake Total 236 Output Total 400 800 Balance -164 -800 Intake: Oral 236 Output: Urine 400 800 Other: Voiding Method Urinal Urinal # Voids 2 - Constitutional General appearance: Present: cooperative, no acute distress - Gastrointestinal General gastrointestinal: Present: soft Localized gastrointestinal: surgical scar: diffuse (VAC is in place) - Labs CBC & Chem 7: 05/17/21 06:18 05/16/21 05:55 Labs: Abnormal Lab Results - Last 24 Hours (Table) 05/16/21 05/17/21 Range/Units 18:21 06:18 WBC 15.6 H (3.8-10.6) k/uL RBC 3.03 L (4.30-5.90) m/uL Hgb 9.5 L (13.0-17.5) gm/dL Hct 29.3 L (39.0-53.0) % Plt Count 538 H (150-450) k/uL Urine Ketones Trace H (Negative) Ur Leukocyte Esterase Trace H (Negative) Urine Mucus Rare H (None) /hpf Assessment and Plan (1) Acute appendicitis Current Visit: Yes Status: Acute Code(s): K35.80 - UNSPECIFIED ACUTE APPENDI CITIS SNOMED Code(s): 59192496 (2) Acute gangrenous appendicitis with perforation and peritonitis Current Visit: Yes Status: Acute Code(s): K35.32 - ACUTE APPENDICITIS WITH PERF AND LOC PERITONITIS, W/O ABSCS SNOMED Code(s): 57239180 (3) Small bowel perforation Current Visit: Yes Status: Acute Code(s): K63.1 - PERFORATION OF INTESTINE (NONTRAUMATIC) SNOMED Code(s): 597211739 Plan: We will consult infectious disease regarding recommendation for oral antibiotics after discharge. This point it doesn't appear that we can get a home wound VAC. Discharge planning is working on this. We'll recheck his CBC tomorrow. Monitor for any fever. Hopefully ready for discharge by Saturday. Questions were encouraged and answered.
[2021-05-18] MEDS: metroNIDAZOLE-NS PMX 500 MG in SALINE 1 100ML.BAG IVPB SCH ×4 (00:20→23:59)
[2021-05-18] MEDS: HYDROmorphone 1 MG/ML 1 ML SYRINGE IVP PRN ×7 (00:24→21:01)
[2021-05-18] MEDS: PIPERACILLIN-TAZOBACTAM 3.375 GM in SODIUM CHLORIDE 0.9% 100 ML IVPB SCH ×3 (01:13→15:57)
[2021-05-18] MEDS: SODIUM CHLORIDE 0.9% 1,000 ML IV SCH ×3 (03:00→22:53)
[2021-05-18] MEDS: HYDROcodone/APAP 5-325MG 1 EACH TAB PO PRN ×2 (05:28→12:56)
[2021-05-18 05:57] LABS: HCT 28.6 % (39.0-53.0); HGB 9.4 gm/dL (13.0-17.5); MCH 31.1 pg (25.0-35.0); MCHC 32.9 g/dL (31.0-37.0); MCV 94.7 fL (80.0-100.0); Mean Platelet Volume 7.2; Platelet Count 590 k/uL (150-450); RBC 3.02 m/uL (4.30-5.90); RDW 13.2 % (11.5-15.5); WBC 23.3 k/uL (3.8-10.6)
[2021-05-18] MEDS: lisinopriL 10 MG TAB PO SCH (08:26)
[2021-05-18] MEDS: NAPROXEN 250 MG TAB PO SCH ×2 (08:26→21:00)
[2021-05-18] MEDS: PANTOPRAZOLE 40 MG TABLET PO SCH (08:26)
[2021-05-18] MEDS: MONTELUKAST 10 MG TAB PO SCH (08:26)
[2021-05-18] MEDS: ENOXAPARIN 40 MG/0.4 ML SYRINGE SQ SCH (08:26)
--- NOTE | 2021-05-18 10:22 | P.PN ---
Subjective Progress Note Date: 05/18/21 no complaints, no acute events Objective - Vital Signs Vital signs: Vital Signs Temp 97.9 F 05/18/21 07:09 Pulse 97 05/18/21 07:09 Resp 18 05/18/21 07:09 BP 115/66 05/18/21 07:09 Pulse Ox 96 05/18/21 07:09 Intake & Output 05/17/21 05/18/21 05/18/21 18:59 06:59 18:59 Intake Total 1400 120 Balance 1400 120 Intake: IV 1200 Sodium Chloride 0.9% 1, 1200 000 ml @ 100 mls/hr IV . Q10H [facility] Rx#:[id number] Intake, IV Titration 200 Amount Piperacillin-Tazobactam 3 100 .375 gm In Sodium Chloride 0.9% 100 ml @ 25 mls/hr IVPB Q8HR [facility] Rx# :[id number] metroNIDAZOLE-NS PMX 500 100 mg In Saline 1 100ml.bag @ 100 mls/hr IVPB Q8HR [facility] Rx#:[id number] Oral 120 Other: # Voids 4 1 # Bowel Movements 1 - Constitutional General appearance: Present: cooperative - Cardiovascular Rhythm: regular - Gastrointestinal Gastrointestinal Comment(s): S/NT/ND, wound vac in place - Psychiatric Psychiatric: Present: A&O x's 3 - Labs CBC & Chem 7: 05/18/21 05:35 05/16/21 05:55 Labs: Abnormal Lab Results - Last 24 Hours (Table) 05/18/21 Range/Units 05:35 WBC 23.3 H (3.8-10.6) k/uL RBC 3.02 L (4.30-5.90) m/uL Hgb 9.4 L (13.0-17.5) gm/dL Hct 28.6 L (39.0-53.0) % Plt Count 590 H (150-450) k/uL Microbiology - Last 24 Hours (Table) 05/16/21 17:08 Blood Culture - Preliminary Blood No Growth after 24 hours Assessment and Plan Assessment: S/P appendectomy and ileoccecectomy Plan: Change wound vac ID recs on abx, if leukocytosis continues to increase consider CT abd/pelvis
[2021-05-18] MEDS: KETOROLAC 30 MG/ML 1 ML VIAL IVP PRN (12:55)
[2021-05-19] MEDS: HYDROcodone/APAP 5-325MG 1 EACH TAB PO PRN ×4 (00:03→21:12)
[2021-05-19] MEDS: PIPERACILLIN-TAZOBACTAM 3.375 GM in SODIUM CHLORIDE 0.9% 100 ML IVPB SCH ×2 (00:04→08:11)
--- NOTE | 2021-05-19 00:15 | P.CONS ---
History of Present Illness - Reason for Consult Consult date: 05/18/21 antibiotics post discharge Requesting physician: Crystal Alanis - Chief Complaint abd pain x few days - History of Present Illness History of present illness : Patient is a 40-year-old male presented to the hospital on May 07, 2021 more than 10 days ago as a transfer from [facility] for acute appendicitis on CT patient symptoms started the night before with associated nausea and vomiting patient was evaluated by surgical team in this patient who is status post laparoscopic appendectomy that was completed on May 07, 2021 the patient did have a persistent pain post surgery and repeat CAT scan was done 2 days later with the evidence of fluid in the right paracolic gutter medial to the cecum with a gas collection patient was taken back to the OR the next day and this patient was noticed to have a perforated small bowel with an abscess patient is status post laparotomy ileocecectomy and drainage of the abscess unfortunately no overall cultures were done patient did not have any blood culture during this admission except yesterday patient has been running a low-grade fever with the last fever of 102 F on May 15, 2021 patient is currently being treated with the Zosyn and Flagyl that was started after his initial surgery with persistently elevated white count infectious disease was consulted last evening after the patient has been hospital for 10 days for further management of antibiotics patient currently denies having any fever or any chills still complaining of lower abdominal pain more of a dull aching to at times sharp 5-6 out of 10 no radiation patient denies any nausea or vomiting has been started on regular insulin patient tolerating did have some loose stools the home but no blood or mucus in the stools Review of system: CONSTITUTIONAL: Positive for weakness along with the fever. EYES: No complaint. ENT: No complaint. RESPIRATORY: No complaint. CARDIOVASCULAR: No complaint. GENITOURINARY: No complaint. GASTROINTESTINAL: As per history of present illness. MUSCULOSKELETAL: No complaint. INTEGUMENTARY: No complaint. PSYCHOLOGIC: No complaint. ENDOCRINE: No complaint. NEUROLOGIC: No complaint. Past medical history : Reviewed, documented below Past surgical history : Reviewed, documented below Social history: Reviewed, documented below Medications: Reviewed, as documented below EXAMINATION: Vital sigans= Reviewed and documented below GENERAL DESCRIPTION: Middle-aged male lying in bed, no distress. No tachypnea or accessory muscle of respiration use. HEENT: Shows Pallor , no scleral icterus. Oral mucous membrane is dry. NECK: Trachea central, no thyromegaly. LUNGS: Unlabored breathing. Decreased breath sound at the base. No wheeze or crackle. HEART: S1, S2, regular rate and rhythm. ABDOMEN: Soft, mild distention and tenderness right lower quadrant incision is covered with a wound VAC EXTREMITIES: No edema of feet. SKIN: No rash, no masses palpable. NEUROLOGICAL: The patient is awake, alert, oriented x3, mood and affect normal. LABS AND RADIOLOGY: Reviewed results see below Assessment : 1-patient with her worsening leukocytosis in this patient who did have a complicated course with initial gangrenous appendicitis status post laparoscopic appendectomy followed by small bowel perforation requiring laparotomy and ileocecectomy drainage of the abscess which was never cultured in this patient on good gram-negative aerobic and anaerobic coverage with persistently and worsening white count is concerning for possible abscess versus infection with the pathogen not covered with current antibiotic regimen Plan: 1-we will add Diflucan 200 mg p.o. daily continue with the Zosyn Flagyl can be discontinued 2-repeat his CBC and CRP tomorrow if any worsening white count may benefit from repeat CT abdominal pelvis We will follow on clinical condition and cultures to further adjust medication if needed Thank you for this consultation we will follow the patient along with you Past Medical History Past Medical History: Hypertension History of Any Multi-Drug Resistant Organisms: None Reported Past Surgical History: Hernia Repair Past Anesthesia/Blood Transfusion Reactions: No Reported Reaction Past Psychological History: No Psychological Hx Reported Smoking Status: Current every day smoker Past Alcohol Use History: Occasional Past Drug Use History: None Reported - Past Family History Father Family Medical History: No Reported History Mother Family Medical History: Coronary Artery Disease (CAD) Medications and Allergies Home Medications Medication Instructions Recorded Confirmed Type Montelukast Sodium [Singulair] 10 mg PO DAILY 05/07/21 05/07/21 History lisinopriL [Zestril] 10 mg PO DAILY 05/07/21 05/07/21 History HYDROcodone/APAP 5-325MG [[place] 1 - 2 tab PO Q4H PRN #30 tab 05/17/21 Rx 5-325] Allergies Allergy/AdvReac Type Severity Reaction Status Date / Time No Known Allergies Allergy Verified 05/07/21 10:32 Physical Exam Vitals: Vital Signs Temp Pulse Resp BP BP Pulse Ox 05/18/21 07:09 97.9 F 97 18 115/66 96 05/18/21 02:20 98.6 F 98 16 119/72 97 05/17/21 19:44 99.2 F 104 H 18 123/56 97 05/17/21 15:27 98.2 F 91 16 130/73 98 Intake and Output 05/17/21 05/18/21 05/18/21 22:59 06:59 14:59 Intake Total 1400 120 Balance 1400 120 Intake: IV 1200 Sodium Chloride 0.9% 1, 1200 000 ml @ 100 mls/hr IV . Q10H [facility] Rx#:[id number] Intake, IV Titration 200 Amount Piperacillin-Tazobactam 3 100 .375 gm In Sodium Chloride 0.9% 100 ml @ 25 mls/hr IVPB Q8HR [facility] Rx# :[id number] metroNIDAZOLE-NS PMX 500 100 mg In Saline 1 100ml.bag @ 100 mls/hr IVPB Q8HR [facility] Rx#:[id number] Oral 120 Other: # Voids 4 1 # Bowel Movements 1 Results CBC & Chem 7: 05/18/21 05:35 05/16/21 05:55 Labs: Abnormal Lab Results - Last 24 Hours (Table) 05/18/21 Range/Units 05:35 WBC 23.3 H (3.8-10.6) k/uL RBC 3.02 L (4.30-5.90) m/uL Hgb 9.4 L (13.0-17.5) gm/dL Hct 28.6 L (39.0-53.0) % Plt Count 590 H (150-450) k/uL Microbiology - Last 24 Hours (Table) 05/16/21 17:08 Blood Culture - Preliminary Blood No Growth after 24 hours
[2021-05-19] MEDS: HYDROmorphone 1 MG/ML 1 ML SYRINGE IVP PRN ×5 (04:14→22:34)
[2021-05-19] MEDS: metroNIDAZOLE-NS PMX 500 MG in SALINE 1 100ML.BAG IVPB SCH ×2 (08:11→17:20)
[2021-05-19] MEDS: PANTOPRAZOLE 40 MG TABLET PO SCH (08:13)
[2021-05-19] MEDS: ENOXAPARIN 40 MG/0.4 ML SYRINGE SQ SCH (08:13)
[2021-05-19] MEDS: lisinopriL 10 MG TAB PO SCH (08:13)
[2021-05-19] MEDS: NAPROXEN 250 MG TAB PO SCH ×2 (08:14→21:53)
[2021-05-19] MEDS: MONTELUKAST 10 MG TAB PO SCH (08:14)
[2021-05-19] MEDS ORDERED: FLUCONAZOLE 100 MG TAB PO SCH (09:00)
--- NOTE | 2021-05-19 10:23 | P.PN ---
Subjective Progress Note Date: 05/19/21 no complaints, no acute events, he states his pain is improved today Objective - Vital Signs Vital signs: Vital Signs Temp 97.4 F L 05/19/21 08:00 Pulse 105 H 05/19/21 08:00 Resp 16 05/19/21 08:00 BP 101/62 05/19/21 08:00 Pulse Ox 95 05/19/21 08:00 Intake & Output 05/18/21 05/19/21 05/19/21 18:59 06:59 18:59 Intake Total 330 540 Balance 330 540 Intake: Oral 330 540 Other: # Voids 1 2 - Constitutional General appearance: Present: cooperative - Cardiovascular Rhythm: regular - Gastrointestinal Gastrointestinal Comment(s): S/ND/minimal TTP Vac in place and functioning - Psychiatric Psychiatric: Present: A&O x's 3 - Labs CBC & Chem 7: 05/18/21 05:35 05/16/21 05:55 Labs: Microbiology - Last 24 Hours (Table) 05/16/21 17:08 Blood Culture - Preliminary Blood No Growth after 48 hours Assessment and Plan Assessment: S/P appendectomy and ileoccecectomy Plan: Change wound vac today ID recs on abx, if leukocytosis continues to increase consider CT abd/pelvis to rule out abscess. If there is an abscess would recommend IR guided drainage
[2021-05-19] MEDS: SODIUM CHLORIDE 0.9% 1,000 ML IV SCH ×2 (10:50→18:13)
[2021-05-19 11:01] LABS: Basophils # (A) 0.1 k/uL (0-0.2); Basophils % (A) 0 %; Eosinophils # (A) 0.1 k/uL (0-0.7); Eosinophils % (A) 0 %; HCT 32.2 % (39.0-53.0); HGB 9.9 gm/dL (13.0-17.5); Lymphocytes # (A) 0.6 k/uL (1.0-4.8); Lymphocytes % (A) 2 %; MCHC 30.9 g/dL (31.0-37.0); MCV 97.4 fL (80.0-100.0); Mean Platelet Volume 7.8; Monocytes # (A) 0.6 k/uL (0-1.0); Monocytes % (A) 2 %; Neutrophils # (A) 30.2 k/uL (1.3-7.7); Neutrophils % (A) 95 %; Platelet Count 620 k/uL (150-450); RDW 12.8 % (11.5-15.5); WBC 31.7 k/uL (3.8-10.6)
[2021-05-19] MEDS ORDERED: SODIUM CHLORIDE 0.9% 1,000 ML IV ONE (13:03)
--- NOTE | 2021-05-19 13:59 | P.PN ---
Progress Note - Text Progress Note Date: 05/19/21 Notified that patient is hypotensive with heart rate in 100s on the floor. CBC resulted with WBC at 31 recently. Will plan for fluid bolus and transfer to ICU, case discussed with ID and pulm/crit care who agree. Consult to Dr. Peguero for critical care. ID recommends DC zosyn and starting meropenem for coverage. Patient going for stat CT to rule out intra abdominal abscess which is the likely source of the sepsis. If abscess is present will recommend IR guided drainage.
[2021-05-19] MEDS ORDERED: MEROPENEM 1 GM in SODIUM CHLORIDE 0.9% 100 ML IVPB ONE ×2 (14:30→18:00)
--- NOTE | 2021-05-19 14:30 | CT ---
EXAMINATION TYPE: CT ChestAbdPelvis w con DATE OF EXAM: 05/19/2021 COMPARISON: CT abdomen and pelvis 10 days ago HISTORY: Possible abscess CT DLP: 3442.9 mGycm. Automated Exposure Control for Dose Reduction was Utilized. CONTRAST: CT scan of the thorax, abdomen and pelvis is performed without oral but with IV Contrast, patient inj ected with 100 mL of Isovue 300. FINDINGS: LUNGS: Tiny right greater than left pleural effusions with associated compressive atelectasis. No pne umothorax seen bilaterally. Upper lungs are clear. Somewhat low lung volumes. Mild right basilar line ar scarring and/or atelectasis MEDIASTINUM: There are no greater than 1 cm hilar or mediastinal lymph nodes. No cardiomegaly or pe ricardial effusion is seen. LIVER/GB: No significant abnormality is appreciated. PANCREAS: No significant abnormality is seen. SPLEEN: Small amount of ascites around spleen. ADRENALS: No significant abnormality is seen. KIDNEYS: No visualized excretion but no hydronephrosis bilaterally. Nondependent intraluminal air lik hina product of recent [place] catheterization. Correlate clinically. BOWEL: Suboptimal evaluation of bowel without enteric contrast. No suspicious small or large bowel di latation. Some prominent fluid filled small bowel loops with air-fluid levels particularly in the lef t abdomen. There is soft tissue defect with packing material in the anterior abdominal wall of the right lower q uadrant and pelvis. Foci of air extend to this level axial image 89 for reference. Surgical sutures right lower quadrant near collapsed right colon axial image 97 for reference. Immedi ately adjacent to this there is a large thin-walled intraperitoneal fluid collection with air-fluid l evel measuring roughly 18 x 13 x 18 cm axial image 84 and sagittal image 55. Local mass effect is pre sent. This appears to have anterior regular air-filled fistulous extension into the anterior intraper itoneal fat iliac to rectus surface axial image 85 for reference. There is adjacent smaller focal fluid collection laterally measuring roughly 7 x 4 cm axial image 78 and sagittal image 32. There is a right posterior retroperitoneal thin-walled fluid collection with a ir-fluid level in the foci of nondependent air measuring approximately 8 x 6 x 16 cm axial image 61 a nd sagittal image 57 with local mass effect along the posterior margin of the right kidney. This affa irs may communicate with the larger intraperitoneal collection along the superior lateral aspect sagi ttal image 48. GENITAL ORGANS: No gross abnormality seen. LYMPH NODES: No greater than 1cm abdominal or pelvic lymph nodes are appreciated. OSSEOUS STRUCTURES: No significant abnormality is seen. OTHER: Free air is present. There is mild to moderate ill-defined fluid and fat stranding in the ante rior mid to lower abdomen extending into the anterior upper pelvis. Nonspecific small focal thin-wall ed fluid collection in the left pelvis axial image 110 measures approximately 6 x 2 cm. Additional areas of focal fluid collections and air difficult to differentiate from unopacified bowel loops IMPRESSION: Multiple thin-walled fluid collections along with ill-defined fluid collections involving intraperitoneal and retroperitoneal compartments with local mass effect. Fluid and fat stranding in the anterior abdominal wall with free air and scattered foci of suspicious air. Suspect developing ab scesses. Fistulous communication or leak needs to be considered.
[2021-05-19 15:35] LABS: Toxic Granulation Present
[2021-05-19] MEDS ORDERED: MEROPENEM 1 GM in SODIUM CHLORIDE 0.9% 100 ML IVPB SCH (16:00)
--- NOTE | 2021-05-19 16:01 | P.PCN ---
Date of Procedure: 05/19/21 Preoperative Diagnosis: abdominal abscess Procedure(s) Performed: ct guide abscess drain Anesthesia: local Estimated Blood Loss (ml): 5 Pathology: other (20cc turbid brown fluid to lab for culture) Operative Findings: 8.5 fr tube right abdomen, patient unable to tolerate positioning for additional drain
[2021-05-19 16:16] LABS: Glucose,Whole Blood 109 mg/dL (75-99)
--- NOTE | 2021-05-19 16:22 | CT ---
EXAMINATION TYPE: CT guided abscess drainage DATE OF EXAM: 05/19/2021 COMPARISON: CT 05/19/2021 HISTORY: Abscess PROCEDURE: Maximal barrier technique was utilized. The skin over suitable path to the intra-abdominal abscess w as localized with CT and the overlying skin prepped and draped. Lidocaine was used for local anesthe briana. A skin josefina made with a scalpel. Access was gained using CT guidance with a 21-gauge needle, p urulent material returned in the hub of the needle. A 0.018 inch wire was advanced and the access si te was upsized, the wire was upsized and subsequently an 8-Kinyarwanda drain was deployed within the absce ss cavity and fixed in place. Catheter attached to gravity drainage. No immediate complication. Pu rulent material sent for laboratory analysis and draining into the bag. The patient remained in stab le condition. Specimen sent for laboratory analysis. IMPRESSION: STATUS POST CT GUIDED ABSCESS DRAINAGE, MICROBIOLOGY ANALYSIS IS PENDING. THIS PROCEDURE WAS PERFORM ED BY THE UNDERSIGNED. CT DLP: mGycm Automated exposure control for dose reduction was used. FINDINGS: IMPRESSION:
[2021-05-19] MEDS ORDERED: VANCOMYCIN IV PER PHARMACY 1 EACH MISC MISCELLANE PRN (16:31)
--- NOTE | 2021-05-19 17:05 | PN ---
PROGRESS NOTE DATE OF SERVICE: 05/19/2021 REASON FOR FOLLOWUP: Intraabdominal abscess. INTERVAL HISTORY: Patient did have worsening abdominal pain starting this morning, did have some nausea but no vomiting. The patient denies having any chest pain, shortness of breath or cough. No diarrhea. PHYSICAL EXAMINATION: Blood pressure 101/62 with a pulse of 105, temperature 97.4. He is 95% on room air. General description is a middle-aged male lying in bed in no distress. Respiratory system: Unlabored breathing, decreased breath sounds at the base. No wheeze. Heart S1, S2. Regular. Abdomen: Soft, distended. Mild guarding and rigidity. LABS: Hemoglobin is 9.1, white count 31.7. CT of abdomen and pelvis with evidence of multiple fluid collection, possible abscess. DIAGNOSTIC IMPRESSION AND PLAN: Patient with sepsis, abdominal source in this patient admitted to the hospital with gangrenous appendicitis status post appendectomy followed by small bowel perforation in this patient who is status post ileocectomy, now with worsening of the white count, abdominal pain, and concern for possible perforation and developing abscess. The patient is status post CT-guided drainage. May benefit from laparotomy to make sure no evidence of any perforation that may need to be surgically repaired. Antibiotic has been broadened to meropenem, vancomycin and fluconazole. Prognosis remains to be guarded. Family at the bedside. Their questions were answered. MMODL / IJN: [id number] /
[2021-05-19] MEDS ORDERED: VANCOMYCIN 2,000 MG in SODIUM CHLORIDE 0.9% 500 ML 500 ML IVPB ONE (17:30)
--- NOTE | 2021-05-19 18:02 | P.CNPUL ---
History of Present Illness Consult date: 05/19/21 Requesting physician: Crystal Alanis Reason for consult: other Chief complaint: Intra-abdominal abscess/sepsis. History of present illness: Pulmonary consult dated 05/19/2021. 40-year-old male seen initially in the emergency department on May 07. He came in with abdominal pain. He was transferred from [facility]. He apparently was found to have acute appendicitis on computed tomography scan there. The patient underwent surgery, on May 07. He had a laparoscopic appendectomy. The appendix apparently was gangrenous. On May 10, he went back to the operating room for an exploratory laparotomy and had an ileocecal resection. Today, I was approached by one of the other surgeons who was concerned about this patient. The patient went for another computed tomography scan of the abdomen this morning, which showed an a large abscess at the area of the resection. The patient had a drain placed by interventional radiology. And he is currently in the intensive care unit, room 255. His past medical history is positive only for hypertension. Currently is on room air. He is getting saline at 100 mL an hour. He is on meropenem, vancomycin, Flagyl, and fluconazole. He seems be resting relatively comfortably. The only medication he was taking at home was lisinopril for his high blood pressure. His primary care physician is Dr. Darrell Roberts. White count 31.7, hemoglobin 9.9, hematocrit 32.2, and platelet count 620,000. No additional laboratory data noted. Computed tomography scan of the abdomen and pelvis was reviewed. Review of Systems REVIEW OF SYSTEMS: CONSTITUTIONAL: [Negative.] NEUROLOGIC: [ Negative.] HEENT: [ Negative.] CARDIAC: [Negative.] PULMONARY: [Negative.] GI: Abdominal pain. : [Negative.] RHEUMATOLOGIC: [ Negative.] IMMUNOLOGIC: [ Negative.] ENDOCRINE: [Negative. ] DERMATOLOGIC: [Negative.] Past Medical History Past Medical History: Hypertension History of Any Multi-Drug Resistant Organisms: None Reported Past Surgical History: Hernia Repair Past Anesthesia/Blood Transfusion Reactions: No Reported Reaction Past Psychological History: No Psychological Hx Reported Smoking Status: Current every day smoker Past Alcohol Use History: Occasional Past Drug Use History: None Reported - Past Family History Father Family Medical History: No Reported History Mother Family Medical History: Coronary Artery Disease (CAD) Medications and Allergies Home Medications Medication Instructions Recorded Confirmed Type Montelukast Sodium [Singulair] 10 mg PO DAILY 05/07/21 05/07/21 History lisinopriL [Zestril] 10 mg PO DAILY 05/07/21 05/07/21 History HYDROcodone/APAP 5-325MG [[place] 1 - 2 tab PO Q4H PRN #30 tab 05/17/21 Rx 5-325] Allergies Allergy/AdvReac Type Severity Reaction Status Date / Time No Known Allergies Allergy Verified 05/07/21 10:32 Physical Exam Osteopathic Statement: *. No significant issues noted on an osteopathic structural exam other than those noted in the History and Physical/Consult. Vitals: Vital Signs Temp Pulse Pulse Resp BP BP Pulse Ox 05/19/21 17:00 115 H 15 119/64 94 L 05/19/21 16:30 97.9 F 116 H 22 113/66 94 L 05/19/21 08:00 97.4 F L 105 H 16 101/62 95 05/19/21 02:17 97.7 F 95 18 96/61 94 L 05/18/21 19:28 97.4 F L 94 18 127/62 96 Intake and Output 05/19/21 05/19/21 05/19/21 06:59 14:59 22:59 Intake Total 540 300 Balance 540 300 Intake: IV 100 Sodium Chloride 0.9% 1, 100 000 ml @ 100 mls/hr IV . Q10H [facility] Rx#:[id number] Oral 540 200 Other: Voiding Method Urinal # Voids 2 No acute distress, oriented 3. Currently on room air. Saturations are mid 90s. HEENT examination is grossly unremarkable. Neck supple. Full range of motion. No adenopathy thyromegaly or neck vein distention. Cardiovascular examination reveals regular rhythm rate. S1-S2 normal. No S3 or S4. No discernible murmur noted. Heart rate 117, and regular. Lungs reveal clear breath sounds. Breath sounds are equal bilaterally. No adventitious lung sounds including wheezes rhonchi or crackles. Abdomen tender on palpation in the area of the right upper quadrant. No bowel sounds are noted. Extremities are intact. No cyanosis clubbing or edema. Skin is without rash or lesion. Neurologic examination is brief but nonfocal. Results - Laboratory Findings CBC and BMP: 05/19/21 10:38 05/16/21 05:55 PT/INR, D-dimer PT 11.1 sec (9.0-12.0) 05/10/21 10:22 INR 1.0 (<1.2) 05/10/21 10:22 Abnormal lab findings: Abnormal Labs 05/08/21 05/09/21 05/10/21 05:22 06:36 07:00 WBC 19.88 H 12.5 H 16.0 H RBC 3.95 L 3.96 L 3.97 L Hgb 12.3 L 12.4 L 12.2 L Hct 36.9 L 37.6 L 37.1 L MCHC Plt Count Immature Gran # 0.10 H Neutrophils # 17.29 H Lymphocytes # Monocytes # 1.41 H Eosinophils # 0 L Sodium Carbon Dioxide BUN BUN/Creatinine Ratio Glucose POC Glucose (mg/dL) Calcium AST Total Protein Albumin Albumin/Globulin Ratio Urine Ketones Ur Leukocyte Esterase Urine Mucus 05/10/21 05/10/21 05/11/21 07:00 09:22 05:58 WBC 10.25 H RBC 3.44 L Hgb 10.5 L Hct 32.4 L MCHC Plt Count Immature Gran # 0.16 H Neutrophils # 8.50 H Lymphocytes # 0.61 L Monocytes # Eosinophils # 0.01 L Sodium 132 L Carbon Dioxide BUN 23 H BUN/Creatinine Ratio Glucose 104 H POC Glucose (mg/dL) 107 H Calcium AST Total Protein Albumin Albumin/Globulin Ratio Urine Ketones Ur Leukocyte Esterase Urine Mucus 05/11/21 05/14/21 05/15/21 05:58 06:50 09:18 WBC 17.78 H 18.5 H RBC 2.85 L 3.13 L Hgb 8.8 L 9.6 L D Hct 27.5 L 29.4 L MCHC Plt Count 483 H 582 H Immature Gran # Neutrophils # 15.2 H Lymphocytes # Monocytes # Eosinophils # Sodium Carbon Dioxide 21.4 L BUN 29.0 H BUN/Creatinine Ratio 26.85 H Glucose 120 H POC Glucose (mg/dL) Calcium 8.0 L AST 42 H Total Protein 5.0 L Albumin 2.7 L Albumin/Globulin Ratio 1.18 L Urine Ketones Ur Leukocyte Esterase Urine Mucus 05/16/21 05/16/21 05/16/21 05:55 05:55 18:21 WBC 17.3 H RBC 3.14 L Hgb 9.7 L Hct 30.2 L MCHC Plt Count 596 H Immature Gran # Neutrophils # Lymphocytes # Monocytes # Eosinophils # Sodium 135 L Carbon Dioxide BUN BUN/Creatinine Ratio Glucose 100 H POC Glucose (mg/dL) Calcium 8.0 L AST Total Protein Albumin Albumin/Globulin Ratio Urine Ketones Trace H Ur Leukocyte Esterase Trace H Urine Mucus Rare H 05/17/21 05/18/21 05/19/21 06:18 05:35 10:38 WBC 15.6 H 23.3 H 31.7 H RBC 3.03 L 3.02 L 3.30 L Hgb 9.5 L 9.4 L 9.9 L Hct 29.3 L 28.6 L 32.2 L MCHC 30.9 L Plt Count 538 H 590 H 620 H Immature Gran # Neutrophils # 30.2 H Lymphocytes # 0.6 L Monocytes # Eosinophils # Sodium Carbon Dioxide BUN BUN/Creatinine Ratio Glucose POC Glucose (mg/dL) Calcium AST Total Protein Albumin Albumin/Globulin Ratio Urine Ketones Ur Leukocyte Esterase Urine Mucus 05/19/21 16:14 WBC RBC Hgb Hct MCHC Plt Count Immature Gran # Neutrophils # Lymphocytes # Monocytes # Eosinophils # Sodium Carbon Dioxide BUN BUN/Creatinine Ratio Glucose POC Glucose (mg/dL) 109 H Calcium AST Total Protein Albumin Albumin/Globulin Ratio Urine Ketones Ur Leukocyte Esterase Urine Mucus Assessment and Plan Assessment: Status post laparoscopic appendectomy, May 07, for gangrenous appendicitis, with subsequent exploratory laparotomy on May 10, for ileocecal resection. Intra-abdominal abscess, at the site of the resection, status post insertion of a percutaneous drainage catheter, May 19. History of hypertension. Plan: Plan dated 05/19/2021. The patient was transferred down to the intensive care unit for closer monitoring and management. The patient's on Exelon antibiotics in the form of meropenem, vancomycin, fluconazole, and Flagyl. Currently, the patient's getting saline at 100 mL an hour. He is a bit tachycardic. He's on room air. His only medical problem was that of hypertension for which she was taking lisinopril. The patient had a percutaneous drainage catheter placed by interventional radiology today. About 20 mL of purulent material drained into the drainage bag. It was sent for culture, etc. Additional recommendations and suggestions are forthcoming. Time with Patient: Greater than 30
[2021-05-20] MEDS ORDERED: VANCOMYCIN 2,000 MG in SODIUM CHLORIDE 0.9% 500 ML 500 ML IVPB SCH ×2
[2021-05-20] MEDS: HYDROcodone/APAP 5-325MG 1 EACH TAB PO PRN ×4 (01:10→13:28)
[2021-05-20] MEDS: metroNIDAZOLE-NS PMX 500 MG in SALINE 1 100ML.BAG IVPB SCH ×4 (01:10→21:18)
[2021-05-20] MEDS: HYDROmorphone 1 MG/ML 1 ML SYRINGE IVP PRN ×7 (01:30→23:48)
[2021-05-20 04:37] LABS: HCT 28.3 % (39.0-53.0); HGB 9.3 gm/dL (13.0-17.5); MCH 31.7 pg (25.0-35.0); MCHC 32.9 g/dL (31.0-37.0); MCV 96.2 fL (80.0-100.0); Mean Platelet Volume 7.6; Platelet Count 685 k/uL (150-450); RBC 2.94 m/uL (4.30-5.90); RDW 13.5 % (11.5-15.5); WBC 29.4 k/uL (3.8-10.6)
[2021-05-20 05:18] LABS: Calcium 7.7 mg/dL (8.4-10.2); Potassium 4.4 mmol/L (3.5-5.1)
[2021-05-20] MEDS: MEROPENEM 1 GM in SODIUM CHLORIDE 0.9% 100 ML IVPB SCH ×3 (05:36→21:17)
[2021-05-20] MEDS: SODIUM CHLORIDE 0.9% 1,000 ML IV SCH ×2 (05:38→08:04)
--- NOTE | 2021-05-20 07:40 | XR ---
EXAMINATION TYPE: XR chest 1V portable DATE OF EXAM: 05/20/2021 CLINICAL HISTORY: Difficulty breathing and pleural effusion progress study. History of gangrenous benjamin endicitis and intra-abdominal abscesses. TECHNIQUE: Single AP portable semiupright view of the chest is obtained. COMPARISON: CT from one day earlier FINDINGS: Low lung volumes redemonstrated. Small tiny right pleural effusion on CT less well seen on x-ray. No new focal airspace opacity or pneumothorax seen bilaterally. Cardiac silhouette size is st able and within normal limits. Underlying levoconvex scoliosis centered upper to midthoracic spine re demonstrated. IMPRESSION: No new acute pulmonary infiltrate.
[2021-05-20] MEDS: lisinopriL 10 MG TAB PO SCH (08:06)
[2021-05-20] MEDS: FLUCONAZOLE IN NACL,ISO-OSM 200 MG in SALINE 1 100ML.BAG IVPB SCH (08:06)
[2021-05-20] MEDS: PANTOPRAZOLE 40 MG TABLET PO SCH (08:06)
[2021-05-20] MEDS: NAPROXEN 250 MG TAB PO SCH ×2 (08:06→21:39)
[2021-05-20] MEDS: MONTELUKAST 10 MG TAB PO SCH (08:06)
[2021-05-20] MEDS: ONDANSETRON 4 MG/2 ML VIAL IVP PRN ×2 (08:11→14:40)
[2021-05-20] MEDS ORDERED: SODIUM CHLORIDE 0.9% 2,000 ML IV ONE (10:49)
--- NOTE | 2021-05-20 11:12 | P.PN ---
Subjective Progress Note Date: 05/20/21 40-year-old male seen initially in the emergency department on May 07. He came in with abdominal pain. He was transferred from [facility]. He apparently was found to have acute appendicitis on computed tomography scan there. The patient underwent surgery, on May 07. He had a laparoscopic appendectomy. The appendix apparently was gangrenous. On May 10, he went back to the operating room for an exploratory laparotomy and had an ileocecal resection. Today, I was approached by one of the other surgeons who was concerned about this patient. The patient went for another computed tomography scan of the abdomen this morning, which showed an a large abscess at the area of the resection. The patient had a drain placed by interventional radiology. And he is currently in the intensive care unit, room 255. His past medical history is positive only for hypertension. Currently is on room air. He is getting saline at 100 mL an hour. He is on meropenem, vancomycin, Flagyl, and fluconazole. He seems be resting relatively comfortably. The only medication he was taking at home was lisinopril for his high blood pressure. His primary care physician is Dr. Darrell Roberts. White count 31.7, hemoglobin 9.9, hematocrit 32.2, and platelet count 620,000. No additional laboratory data noted. Computed tomography scan of the abdomen and pelvis was reviewed. Today's evaluation patient is seen in intensive care unit on 05/20/2021. Patient is status post CT-guided abdominal abscess drainage on 05/19/2021 with drainage of approximately 200 mL of purulent material which was sent for cultures. Currently there is a drainage tube still present in the right lower quadrant connected to a collection bag with small amount of fecal appearing material. Patient has a wound VAC in place on his right lower quadrant open incision which is draining large amounts of fecal material, currently there is 400 mL of fecal appearing drainage in the collection chamber. Black foam is in place, and there is fecal material on the edges of the black foam. Exhalation is awake and alert, oriented 3, breathing fairly comfortably although does get short of breath when the pain in his abdomen intensive 5. Not requiring any oxygen, room air pulse ox is 89% to 92%, his been afebrile overnight, however she is tachycardic in a sinus mechanism with a rate of 117-124 BPM. Blood pressure is 136/90. He is on 0.9 normal saline at a rate of 100 ML per hour, no other drips. Patient does not have a Cowan catheter in place, last urine output was 250 mL last night, he is been nothing by mouth. Chest x-ray showed no new acute pulmonary infiltrate, his labs 7 reviewed, white blood cell count is 29.4, hemoglobin is 9.3, platelet count is 685, serum sodium is 135, potassium is 4.4, chloride is 104, CO2 is 21, patient has evidence of acute kidney injury with BUN up to 35 and creatinine up to 1.38 on today's labs. Urinalysis on admission showed trace ketones, rare mucus, but no definite sign of infection, patient is currently on combination of antibiotics with meropenem, Flagyl, vancomycin and will con is old. ID service is following. Her so far have shown no growth, abdominal abscess aspirate has been sent for culture, final report is still pending. Abdomen is distended, soft, but it is tender. Patient reports nausea but no vomiting. Objective - Vital Signs Vital signs: Vital Signs Temp 98.2 F 05/20/21 08:00 Pulse 121 H 05/20/21 10:00 Resp 14 05/20/21 10:00 BP 141/84 05/20/21 10:00 Pulse Ox 92 L 05/20/21 10:00 Intake & Output 05/19/21 05/20/21 05/20/21 18:59 06:59 18:59 Intake Total 1240 2550 400 Output Total 275 1000 400 Balance 965 1550 0 Intake: IV 200 2300 400 Meropenem 1 gm In Sodium 100 Chloride 0.9% 100 ml @ 33 .3 mls/hr IVPB Q8H [facility] Rx #:[id number] Sodium Chloride 0.9% 1, 200 1200 300 000 ml @ 100 mls/hr IV . Q10H [facility] Rx#:[id number] Vancomycin 2,000 mg In 1000 Sodium Chloride 0.9% 500 ml 500 ml @ 167 mls/hr IVPB Q8H [facility] Rx#: [id number] metroNIDAZOLE-NS PMX 500 100 mg In Saline 1 100ml.bag @ 100 mls/hr IVPB Q8HR [facility] Rx#:[id number] Oral 1040 250 Output: Drainage 800 400 Right Abdomen 700 300 Right Lateral Abdomen 100 100 Urine 275 200 Other: Voiding Method Urinal Urinal Urinal # Voids 1 - Exam GENERAL EXAM: Alert, very pleasant, 40-year-old white male, in mild distress from abdominal discomfort, comfortable in no apparent distress. HEAD: Normocephalic/atraumatic. EYES: Normal reaction of pupils, equal size. Conjunctiva pink, sclera white. NOSE: Clear with pink turbinates. THROAT: No erythema or exudates. NECK: No masses, no JVD, no thyroid enlargement, no adenopathy. CHEST: No chest wall deformity. Symmetrical expansion. LUNGS: Equal air entry with no crackles, wheeze, rhonchi or dullness. CVS: Regular rate and rhythm, normal S1 and S2, no gallops, no murmurs, no rubs ABDOMEN: Soft, post-surgical tenderness, Large open abd wound with wound vac, edges of wound are soiled with fecal material, with grossly fecal material draining into the wound vac cannister No hepatosplenomegaly, normal bowel sounds, no guarding or rigidity. RUQ drain present with drainage of fecal material EXTREMITIES: No clubbing, 1+ edema, no cyanosis, 2+ pulses and upper and lower extremities. MUSCULOSKELETAL: Muscle strength and tone normal. SPINE: No scoliosis or deformity SKIN: No rashes CENTRAL NERVOUS SYSTEM: Alert and oriented -3. No focal deficits, tone is normal in all 4 extremities. PSYCHIATRIC: Alert and oriented -3. Appropriate affect. Intact judgment and insight. - Labs CBC & Chem 7: 05/20/21 04:12 05/20/21 03:39 Labs: Abnormal Lab Results - Last 24 Hours (Table) 05/19/21 05/19/21 05/20/21 Range/Units 10:38 16:14 03:39 WBC 31.7 H (3.8-10.6) k/uL RBC 3.30 L (4.30-5.90) m/uL Hgb 9.9 L (13.0-17.5) gm/dL Hct 32.2 L (39.0-53.0) % MCHC 30.9 L (31.0-37.0) g/dL Plt Count 620 H (150-450) k/uL Neutrophils # 30.2 H (1.3-7.7) k/uL Lymphocytes # 0.6 L (1.0-4.8) k/uL Sodium 135 L (137-145) mmol/L Carbon Dioxide 21 L (22-30) mmol/L BUN 35 H (9-20) mg/dL Creatinine 1.38 H (0.66-1.25) mg/dL POC Glucose (mg/dL) 109 H (75-99) mg/dL Calcium 7.7 L (8.4-10.2) mg/dL 05/20/21 Range/Units 04:12 WBC 29.4 H (3.8-10.6) k/uL RBC 2.94 L (4.30-5.90) m/uL Hgb 9.3 L (13.0-17.5) gm/dL Hct 28.3 L (39.0-53.0) % MCHC (31.0-37.0) g/dL Plt Count 685 H (150-450) k/uL Neutrophils # (1.3-7.7) k/uL Lymphocytes # (1.0-4.8) k/uL Sodium (137-145) mmol/L Carbon Dioxide (22-30) mmol/L BUN (9-20) mg/dL Creatinine (0.66-1.25) mg/dL POC Glucose (mg/dL) (75-99) mg/dL Calcium (8.4-10.2) mg/dL Microbiology - Last 24 Hours (Table) 05/19/21 15:55 Body Fluid Culture - Preliminary Aspirate 05/16/21 17:08 Blood Culture - Preliminary Blood No Growth after 72 hours Assessment and Plan Plan: Assessment: #1. Status post laparoscopic appendectomy, May 07, for gangrenous appendicitis, with subsequent exploratory laparotomy on May 10, for ileocecal resection. #2. Intra-abdominal abscess, at the site of the resection, status post insertion of a percutaneous drainage catheter, May 19. #3. Acute kidney injury, related to ATN #3. History of hypertension. Plan: Give the patient 2 l IV bolus 0.9 normal saline Insert Cowan catheter, accurate intake and output Continue current antibiotics awaiting final cultures Wound vac management per surgery, however it appears the wound vac is draining large amount of fecal material right sided drain remains in place with drainage of purulent material Titrate Fio2 to keep oxygen at 90%, encourage deep breathing and coughing Continue close monitoring in the ICU Time with Patient: Greater than 30
[2021-05-20] MEDS: ENOXAPARIN 40 MG/0.4 ML SYRINGE SQ SCH (12:04)
--- NOTE | 2021-05-20 12:15 | P.PN ---
Subjective Progress Note Date: 05/20/21 Patient seen in ICU. There is brown feculent drainage from RLQ wound, vac was removed and wet to dry dressing were placed. 400cc of similar drainage from IR guided drain overnight. Objective - Vital Signs Vital signs: Vital Signs Temp 98.2 F 05/20/21 08:00 Pulse 118 H 05/20/21 11:00 Resp 21 05/20/21 11:00 BP 136/90 05/20/21 11:00 Pulse Ox 93 L 05/20/21 11:00 Intake & Output 05/19/21 05/20/21 05/20/21 18:59 06:59 18:59 Intake Total 1240 2550 1500 Output Total 275 1000 525 Balance 965 1550 975 Intake: IV 200 2300 500 Meropenem 1 gm In Sodium 100 Chloride 0.9% 100 ml @ 33 .3 mls/hr IVPB Q8H [facility] Rx #:[id number] Sodium Chloride 0.9% 1, 200 1200 400 000 ml @ 100 mls/hr IV . Q10H [facility] Rx#:[id number] Vancomycin 2,000 mg In 1000 Sodium Chloride 0.9% 500 ml 500 ml @ 167 mls/hr IVPB Q8H [facility] Rx#: [id number] metroNIDAZOLE-NS PMX 500 100 mg In Saline 1 100ml.bag @ 100 mls/hr IVPB Q8HR [facility] Rx#:[id number] Intake, IV Titration 1000 Amount Sodium Chloride 0.9% 1, 1000 000 ml @ 999 mls/hr IV . Q1H1M [facility] Rx#:[id number] Oral 1040 250 Output: Drainage 800 400 Right Abdomen 700 300 Right Lateral Abdomen 100 100 Urine 275 200 125 Other: Voiding Method Urinal Urinal Urinal # Voids 1 - Constitutional General appearance: Present: cooperative - Cardiovascular Heart rate: 120 - Gastrointestinal Gastrointestinal Comment(s): Soft, tender to palpation, mild distention RLQ wound with some brown feculent drainage IR guided drain with brown drainage - Psychiatric Psychiatric: Present: A&O x's 3 - Labs CBC & Chem 7: 05/20/21 04:12 05/20/21 03:39 Labs: Abnormal Lab Results - Last 24 Hours (Table) 05/19/21 05/19/21 05/20/21 Range/Units 10:38 16:14 03:39 WBC (3.8-10.6) k/uL RBC (4.30-5.90) m/uL Hgb (13.0-17.5) gm/dL Hct (39.0-53.0) % Plt Count (150-450) k/uL Neutrophils # 30.2 H (1.3-7.7) k/uL Lymphocytes # 0.6 L (1.0-4.8) k/uL Sodium 135 L (137-145) mmol/L Carbon Dioxide 21 L (22-30) mmol/L BUN 35 H (9-20) mg/dL Creatinine 1.38 H (0.66-1.25) mg/dL POC Glucose (mg/dL) 109 H (75-99) mg/dL Calcium 7.7 L (8.4-10.2) mg/dL 05/20/21 Range/Units 04:12 WBC 29.4 H (3.8-10.6) k/uL RBC 2.94 L (4.30-5.90) m/uL Hgb 9.3 L (13.0-17.5) gm/dL Hct 28.3 L (39.0-53.0) % Plt Count 685 H (150-450) k/uL Neutrophils # (1.3-7.7) k/uL Lymphocytes # (1.0-4.8) k/uL Sodium (137-145) mmol/L Carbon Dioxide (22-30) mmol/L BUN (9-20) mg/dL Creatinine (0.66-1.25) mg/dL POC Glucose (mg/dL) (75-99) mg/dL Calcium (8.4-10.2) mg/dL Microbiology - Last 24 Hours (Table) 05/19/21 15:55 Body Fluid Culture - Preliminary Aspirate 05/16/21 17:08 Blood Culture - Preliminary Blood No Growth after 72 hours Assessment and Plan Assessment: S/P appendectomy and takeback for ileocecectomy Plan: Patient is now having feculent drainage from his right lower quadrant wound and the IR guided drain. I had a lengthy discussion with the patient and the patient's family regarding this. At this time we are recommending transfer to a tertiary care facility with surgical ICU and higher level of care. Should the patient's status continue to decline and there are no excepting tertiary care facilities, patient may require a lifesaving emergency surgery here. This would likely be exploratory laparotomy with washout and diverting ileostomy. This is a very complex case and prognosis is guarded. For now we'll continue to drain the fluid and resuscitate, appreciate ICU recommendations and antibiotics are being managed per ID.
[2021-05-20] MEDS: KETOROLAC 30 MG/ML 1 ML VIAL IVP PRN (13:29)
[2021-05-20] MEDS: VANCOMYCIN 2,000 MG in SODIUM CHLORIDE 0.9% 500 ML 500 ML IVPB SCH (14:40)
[2021-05-20] MEDS ORDERED: MIDAZOLAM 2 MG/2 ML VIAL ONE (16:09)
[2021-05-20] MEDS ORDERED: PHENYLEPHRINE-0.9% NACL SYG 1,000 MCG/10 ML SYRINGE ONE (16:09)
[2021-05-20] MEDS ORDERED: .fentaNYL (PF) 50 MCG/ML 2 ML AMP ONE (16:09)
[2021-05-20] MEDS ORDERED: PROPOFOL 10 MG/ML 20 ML VIAL IV ONE (16:09)
[2021-05-20] MEDS ORDERED: LIDOCAINE 1% INJ 10MG/ML (20 ML MDV) ONE (16:09)
[2021-05-20] MEDS ORDERED: DEXAMETHASONE SOD PHOSPHATE 10 MG/ML 1 ML VIAL ONE (16:09)
[2021-05-20] MEDS ORDERED: SUCCINYLCHOLINE CHLORIDE VIAL 200 MG/10 ML VIAL IV ONE (16:09)
[2021-05-20] MEDS ORDERED: ONDANSETRON 4 MG/2 ML VIAL ONE (16:09)
[2021-05-20] MEDS ORDERED: ROCURONIUM 10 MG/ML (5 ML VIAL) IV ONE (16:09)
[2021-05-20] MEDS ORDERED: IV FLUID CONTINUATION 400 ML IV ONE (16:13)
[2021-05-20] MEDS ORDERED: LACTATED RINGERS 1,000 ML IV ONE ×2 (16:52→18:11)
--- NOTE | 2021-05-20 16:55 | P.ANPRN ---
Procedure Note - Anesthesia - Invasive Line Right Central Line Time Out Performed: Yes (1621) Date of Procedure: 05/20/21 Time of Procedure: 16:22 Location of Patient: OR Preparation: Sterile Prep, Sterile Dressing Ultrasound Used: Yes Purpose - Visualization and Identification of Vasculature: Yes Needle Guage: 18g angio Image Stored and Saved: Yes Narrative: Central line placement per sterile protocol utilized. +angio +cvp +jwire +uneventful dilation and introduction right IJ TLC All lumens bled and flushed x3. Sterile protocol. Dressed.
--- NOTE | 2021-05-20 17:45 | PN ---
PROGRESS NOTE DATE OF SERVICE: 05/20/2021 REASON FOR FOLLOWUP: Abdominal sepsis. INTERVAL HISTORY: Patient is afebrile. The patient is hemodynamically stable. The patient still complaining of abdominal pain, nausea but no vomiting. No chest pain, shortness of breath or cough. PHYSICAL EXAMINATION: Blood pressure 148/83, pulse of 115, temperature of 98. He is 93% on 2 L nasal cannula. General description is a middle-aged male intubated on the vent. Respiratory system: Unlabored breathing, decreased intensity of breath sounds. No wheeze. Heart S1, S2. Regular rate and rhythm. Abdomen: Soft. Mildly distended. No guarding. No rigidity. LABS: Hemoglobin 9.1, white count 9.4, creatinine 1.38. CT head fluid aspirate culture currently pending. DIAGNOSTIC IMPRESSION AND PLAN: Patient with abdominal sepsis in this patient with admission to the hospital with gangrenous appendicitis, status post surgery, now with concern for possible perforation, status post CT-guided drainage. Waiting for possible transfer to tertiary care surgery. Patient is broadly covered with meropenem, Vanco and Diflucan. Family at the bedside. Questions and concerns were answered. MMODL / IJN: [id number] /
[2021-05-20] MEDS ORDERED: propofoL 100 ML IV ONE (19:29)
--- NOTE | 2021-05-20 19:56 | P.OP ---
Date of Procedure: 05/20/21 Preoperative Diagnosis: Acute abdomen, intrabdominal abscess Postoperative Diagnosis: Ileocolonic perforation Procedure(s) Performed: Exploratory laparotomy with resection of ileocolonic anastomosis and creation of end ileostomy and abdominal washout. Anesthesia: STEPH Surgeon: Crystal Alanis Outreach Manager #1: Leroy Driver Estimated Blood Loss (ml): 100 IV fluids (ml): 1,800 Urine output (ml): 500 Condition: critical Disposition: ICU Indications for Procedure: This patient that has had a complicated course with gangrenous appendicitis followed by ileocecectomy now was found to have feculent drainage from an IR guided drain in his right paramedian incision. There were attempts to transfer patient to tertiary care facility however there is no tertiary care facility with open beds that will accept the patient. Patient was septic and discussion was had with the patient's family regarding her options. I do not believe the patient would survive without surgery and this was discussed with the patient and decision was made for exploratory laparotomy possible bowel resection and washout and possible ileostomy creation. The patient and the family agreed and consented to this. Description of Procedure: Patient is brought operative suite remained in the supine position underwent general endotracheal anesthesia per Department of anesthesia prepped and draped usual sterile fashion timeout was performed correct patient correct seizure correct site was verified. A midline incision was made carried down to the fascia which was incised in the usual fashion and the abdomen was entered upon entering the abdomen there was a large amount of feculent drainage this was suctioned and irrigated. There was multiple adhesions and extensive lysis of adhesions for greater than 45 minutes was carried out. The omentum was freed from the small bowel and the transverse colon was identified a healthy area transverse colon was identified and stapled across with a 75 mm blue load RONNI stapler. Following this back distally to the ileocolonic anastomosis there was multiple loculations of abscess which were broken up and drained once the colon was freed to the ileocolonic anastomosis the small bowel was also run in starting at the ligament of Treitz and all adhesions were lysed and interloop abscesses were broken up and irrigated. The small bowel was followed all the way back to the ileocolonic anastomosis which was noted to be the source of the feculent drainage. and a healthy piece of terminal ileum was selected and stapled across with a blue load 75 mm RONNI stapler. Using a LigaSure device the mesentery was ligated hemostasis was noted and the specimen was removed. He had again copious irrigation was greater than 2 L were used to clear out the abdomen. All 4 quadrants were irrigated and suctioned. Until clear. 19-Maldivian TRACI drain was placed in the right lower quadrant. The right paramedian wound was irrigated and cleaned. It was noted to be dehisced. Following this the ileum was freed up and due to the patient's large body habitus it was difficult to find a place to bring the ileum to the anterior abdominal wall it would not cross the midline and come to the left lower quadrant and the only place that a viable and ileostomy could be created was the right upper quadrant. A 3 cm round incision was made in the skin carried down to the fascia which was incised and the muscle split posterior fascia was incised in the ileum was brought up through this. The midline fascia was then closed with looped PDS sutures followed by irrigation and skin ledy with 1 inch gauze packing in several places between. The right paramedian incision the fascia was closed with single stranded PDS in a running fashion meeting in the middle the skin was then closed with skin ledy over a [place] drain. Sterile dressings were applied. The ileostomy was matured with 3-0 Vicryl brooking stitches followed by simple interrupted 3-0 Vicryl stitches. Ileostomy appliance was applied. Drain stitches were placed at the TRACI drain and the [place] drain. Patient tolerated the procedure well he is brought back to the ICU in critical condition.
[2021-05-20] MEDS: CHLORHEXIDINE GLUCONATE 15 ML CUP MUCOUS MEM SCH (21:16)
--- NOTE | 2021-05-20 22:18 | XR ---
EXAMINATION TYPE: XR chest 1V portable DATE OF EXAM: 05/20/2021 COMPARISON: Today HISTORY: Tube placement TECHNIQUE: FINDINGS: Endotracheal tube is 3.4 cm from the baron. There is elevated right diaphragm. There is pr obably some atelectasis right lung base. There is no heart failure. There is right jugular catheter w ith tip in the superior vena cava. IMPRESSION: Elevated right diaphragm without change. No heart failure or pulmonary consolidation.
[2021-05-21] MEDS: VANCOMYCIN 2,000 MG in SODIUM CHLORIDE 0.9% 500 ML 500 ML IVPB SCH (02:50)
[2021-05-21] MEDS: MEROPENEM 1 GM in SODIUM CHLORIDE 0.9% 100 ML IVPB SCH ×3 (02:50→18:05)
[2021-05-21] MEDS: HYDROmorphone 1 MG/ML 1 ML SYRINGE IVP PRN ×6 (03:03→23:38)
[2021-05-21] MEDS: SODIUM CHLORIDE 0.9% 1,000 ML IV SCH ×3 (03:05→22:12)
[2021-05-21 05:47] LABS: ABG HCO3 22 mmol/L (21-25); ABG Oxygen Saturation 99.2 % (94-97); ABG PCO2 38 mmHg (35-45); ABG PH 7.38 (7.35-7.45); ABG PO2 151 mmHg (83-108); ABG TCO2 23 mmol/L (19-24); Allen Test Performed? Yes
[2021-05-21] MEDS: metroNIDAZOLE-NS PMX 500 MG in SALINE 1 100ML.BAG IVPB SCH ×3 (07:12→20:46)
[2021-05-21] MEDS: HYDROcodone/APAP 5-325MG 1 EACH TAB PO PRN (08:14)
[2021-05-21] MEDS: NAPROXEN 250 MG TAB PO SCH ×2 (08:15→22:12)
[2021-05-21] MEDS: lisinopriL 10 MG TAB PO SCH (08:15)
[2021-05-21] MEDS: CHLORHEXIDINE GLUCONATE 15 ML CUP MUCOUS MEM SCH ×2 (08:16→22:12)
[2021-05-21] MEDS: PANTOPRAZOLE 40 MG TABLET PO SCH (08:26)
[2021-05-21] MEDS: FLUCONAZOLE IN NACL,ISO-OSM 200 MG in SALINE 1 100ML.BAG IVPB SCH (08:30)
--- NOTE | 2021-05-21 09:29 | P.PN ---
Subjective Progress Note Date: 05/21/21 Patient intubated and sedated, resting comfortably, small amount of sweat in ostomy Objective - Vital Signs Vital signs: Vital Signs Temp 99.3 F 05/21/21 04:00 Pulse 112 H 05/21/21 07:00 Resp 12 05/21/21 07:00 BP 111/60 05/21/21 07:00 Pulse Ox 97 05/21/21 07:00 Intake & Output 05/20/21 05/21/21 05/21/21 18:59 06:59 18:59 Intake Total 4500 2358.485 200 Output Total 755 1540 30 Balance 3745 818.485 170 Weight 140 kg Intake: IV 2500 1900.8 100 Meropenem 1 gm In Sodium 100 199.8 Chloride 0.9% 100 ml @ 33 .3 mls/hr IVPB Q8H [facility] Rx #:[id number] Sodium Chloride 0.9% 1, 800 1100 100 000 ml @ 100 mls/hr IV . Q10H [facility] Rx#:[id number] Vancomycin 2,000 mg In 501 Sodium Chloride 0.9% 500 ml 500 ml @ 167 mls/hr IVPB Q8H [facility] Rx#: [id number] metroNIDAZOLE-NS PMX 500 100 mg In Saline 1 100ml.bag @ 100 mls/hr IVPB Q8HR [facility] Rx#:[id number] Intake, IV Titration 2000 457.685 100 Amount Sodium Chloride 0.9% 1, 2000 000 ml @ 999 mls/hr IV . Q1H1M [facility] Rx#:[id number] propofoL 1,000 mg In 457.685 100 Empty Bag 1 bag @ Titrate IV .Q0M [facility] Rx#: [id number] Output: Drainage 400 480 Left Upper Abdomen 480 Right Abdomen 300 Right Lateral Abdomen 100 Urine 355 960 30 Estimated Blood Loss 100 Other: Voiding Method Indwelling Catheter Indwelling Catheter - Constitutional General appearance: Present: cooperative - Gastrointestinal Gastrointestinal Comment(s): Ileosotomy pink and patent Incisions CDI - Psychiatric Psychiatric: Present: A&O x's 3 - Labs CBC & Chem 7: 05/20/21 04:12 05/21/21 03:16 Labs: Abnormal Lab Results - Last 24 Hours (Table) 05/20/21 05/21/21 05/21/21 Range/Units 16:35 03:16 05:43 ABG pO2 151 H (83-108) mmHg ABG O2 Saturation 99.2 H (94-97) % Creatinine 1.35 H (0.66-1.25) mg/dL Crossmatch See Detail Microbiology - Last 24 Hours (Table) 05/19/21 15:55 Gram Stain - Preliminary Aspirate Body Fluid Culture - Preliminary Yeast species Gram Neg Bacilli 05/16/21 17:08 Blood Culture - Preliminary Blood No Growth after 96 hours 05/19/21 14:09 Blood Culture - Preliminary Blood No Growth after 24 hours Assessment and Plan Assessment: S/P appendectomy and takeback for ileocecectomy S/P ex lap iwth resection of ileocolostomy and washout with end ileostomy Plan: Continue ICU care, cont NPO. Consider TPN for nutrition if no ostomy output picks up. Antibiotics per ID
[2021-05-21 10:34] LABS: Basophils % (A) 0 %; Eosinophils % (A) 0 %; HCT 24.2 % (39.0-53.0); Hypochromasia Slight; Lymphocytes # (A) 0.9 k/uL (1.0-4.8); Lymphocytes % (A) 4 %; MCH 30.3 pg (25.0-35.0); MCHC 31.8 g/dL (31.0-37.0); MCV 95.2 fL (80.0-100.0); Mean Platelet Volume 7.9; Monocytes # (A) 0.9 k/uL (0-1.0); Monocytes % (A) 4 %; Neutrophils # (A) 18.9 k/uL (1.3-7.7); Neutrophils % (A) 91 %; Platelet Count 721 k/uL (150-450); RBC 2.54 m/uL (4.30-5.90); RDW 13.3 % (11.5-15.5); WBC 20.8 k/uL (3.8-10.6)
[2021-05-21 10:44] LABS: Calcium 7.2 mg/dL (8.4-10.2); Potassium 4.8 mmol/L (3.5-5.1)
--- NOTE | 2021-05-21 10:48 | XR ---
EXAMINATION TYPE: XR chest 1V portable DATE OF EXAM: 05/21/2021 COMPARISON: 05/20/2021 HISTORY: 40 years Male. STUDY INDICATION GIVEN: pleural effusion . TECHNIQUE: AP chest radiograph IMPRESSION: The tracheal tube tip slightly retracted but remains in good position at the level of the clavicle. T he enteric tube courses into the stomach. Stable right central venous catheter tip at the superior cavoatrial junction. Interval decrease in bilateral left greater than right patchy and mild interstitial opacities. No pneumothorax or large pleural effusion. No cardiomegaly. Stable osseous structures.
[2021-05-21 10:50] LABS: HGB 7.7 gm/dL (13.0-17.5)
[2021-05-21] MEDS: ENOXAPARIN 40 MG/0.4 ML SYRINGE SQ SCH (11:22)
[2021-05-21] MEDS: DEXMEDETOMIDINE/0.9% NACL(PMX) 400 MCG in EMPTY BAG 1 BAG IV SCH (11:45)
--- NOTE | 2021-05-21 13:13 | P.PN ---
Subjective Progress Note Date: 05/21/21 Principal diagnosis: Respiratory failure, abdominal sepsis. 40-year-old male seen initially in the emergency department on May 07. He came in with abdominal pain. He was transferred from [facility]. He apparently was found to have acute appendicitis on computed tomography scan there. The patient underwent surgery, on May 07. He had a laparoscopic appendectomy. The appendix apparently was gangrenous. On May 10, he went back to the operating room for an exploratory laparotomy and had an ileocecal resection. Today, I was approached by one of the other surgeons who was concerned about this patient. The patient went for another computed tomography scan of the abdomen this morning, which showed an a large abscess at the area of the resection. The patient had a drain placed by interventional radiology. And he is currently in the intensive care unit, room 255. His past medical history is positive only for hypertension. Currently is on room air. He is getting saline at 100 mL an hour. He is on meropenem, vancomycin, Flagyl, and flucona zole. He seems be resting relatively comfortably. The only medication he was taking at home was lisinopril for his high blood pressure. His primary care physician is Dr. Darrell Roberts. White count 31.7, hemoglobin 9.9, hematocrit 32.2, and platelet count 620,000. No additional laboratory data noted. Computed tomography scan of the abdomen and pelvis was reviewed. Today's evaluation patient is seen in intensive care unit on 05/20/2021. Patient is status post CT-guided abdominal abscess drainage on 05/19/2021 with drainage of approximately 200 mL of purulent material which was sent for cult ures. Currently there is a drainage tube still present in the right lower quadrant connected to a collection bag with small amount of fecal appearing material. Patient has a wound VAC in place on his right lower quadrant open incision which is draining large amounts of fecal material, currently there is 400 mL of fecal appearing drainage in the collection chamber. Black foam is in place, and there is fecal material on the edges of the black foam. Exhalation is awake and alert, oriented 3, breathing fairly comfortably although does get short of breath when the pain in his abdomen intensive 5. Not requiring any oxygen, room air pulse ox is 89% to 92%, his been afebrile overnight, however she is tachycardic in a sinus mechanism with a rate of 117-124 BPM. Blood pressure is 136/90. He is on 0.9 normal saline at a rate of 100 ML per hour, no other drips. Patient does not have a Cowan catheter in place, last urine output was 250 mL last night, he is been nothing by mouth. Chest x-ray showed no new acute pulmonary infiltrate, his labs 7 reviewed, white blood cell count is 29.4, hemoglobin is 9.3, platelet count is 685, serum sodium is 135, potassium is 4.4, chloride is 104, CO2 is 21, patient has evidence of acute kidney injury with BUN up to 35 and creatinine up to 1.38 on today's labs. Urinalysis on admission showed trace ketones, rare mucus, but no definite sign of infection, patient is currently on combination of antibiotics with meropenem, Flagyl, vancomycin and will con is old. ID service is following. Her so far have shown no growth, abdominal abscess aspirate has been sent for culture, final report is still pending. Abdomen is distended, soft, but it is tender. Patient reports nausea but no vomiting. Progress note dated 05/21/2021. The patient is seen again in room 255, in the intensive care unit. The patient is postop day #1, status post exploratory laparotomy, resection of ileal colonic anastomosis, and ileostomy, and abdominal washout. The surgery was done by Dr. Driver. The patient remains on the mechanical ventilator, with vent settings of volume assist control mode, rate 16, tidal volume 500, FiO2 50%, PEEP of 5. The patient's blood gases on those settings showed a PaO2 of 151, pCO2 38, and a pH of 7.38. The patient is currently on propofol at 75 mcg/kg/m and saline at 100 mL an hour. Today, we will do a daily interruption of sedation. We'll place the patient on Precedex. Afterwards, we will stop the propofol, and do a spont aneous breathing trial on 5 pressure-support and 5 CPAP. White count 20.8, hemoglobin 7.7, hematocrit 24.2, and platelet count 721,000. Sodium 136, potassium 4.8, chlorides 110, CO2 20, anion gap 6, BUN 42, creatinine 1.58. The patient's chest x-ray shows minimal bilateral infiltrates or atelectasis. Objective - Vital Signs Vital signs: Vital Signs Temp 99.3 F 05/21/21 04:00 Pulse 112 H 05/21/21 11:00 Resp 11 L 05/21/21 11:00 BP 108/58 05/21/21 11:00 Pulse Ox 97 05/21/21 11:00 Intake & Output 05/20/21 05/21/21 05/21/21 18:59 06:59 18:59 Intake Total 4500 2358.485 300 Output Total 755 1540 240 Balance 3745 818.485 60 Weight 140 kg Intake: IV 2500 1900.8 100 Meropenem 1 gm In Sodium 100 199.8 Chloride 0.9% 100 ml @ 33 .3 mls/hr IVPB Q8H [facility] Rx #:[id number] Sodium Chloride 0.9% 1, 800 1100 100 000 ml @ 100 mls/hr IV . Q10H [facility] Rx#:[id number] Vancomycin 2,000 mg In 501 Sodium Chloride 0.9% 500 ml 500 ml @ 167 mls/hr IVPB Q8H [facility] Rx#: [id number] metroNIDAZOLE-NS PMX 500 100 mg In Saline 1 100ml.bag @ 100 mls/hr IVPB Q8HR [facility] Rx#:[id number] Intake, IV Titration 2000 457.685 200 Amount Sodium Chloride 0.9% 1, 2000 000 ml @ 999 mls/hr IV . Q1H1M [facility] Rx#:[id number] propofoL 1,000 mg In 457.685 200 Empty Bag 1 bag @ Titrate IV .Q0M [facility] Rx#: [id number] Output: Drainage 400 480 35 Left Upper Abdomen 480 35 Right Abdomen 300 Right Lateral Abdomen 100 Urine 355 960 205 Estimated Blood Loss 100 Other: Voiding Method Indwelling Catheter Indwelling Catheter Indwelling Catheter - Exam No acute distress, sedated, currently on the ventilator, with an orally placed endotracheal tube and NG tube. HEENT examination is grossly unremarkable. Neck supple. Full range of motion. No adenopathy thyromegaly or neck vein distention. Cardiovascular examination reveals regular rhythm rate. S1-S2 normal. No S3 or S4. No discernible murmur noted. Heart rate 112 bpm. Lungs reveal bilateral rhonchi. No wheezes or crackles. Breath sounds equal bilaterally. Abdomen soft without bowel sounds. Ileostomy is noted. Extremities are intact. No cyanosis clubbing or edema. Skin is without rash or lesion. Neurologic examination is difficult to assess as the patient is currently sedate d. - Labs CBC & Chem 7: 05/21/21 10:23 05/21/21 10:23 Labs: Abnormal Lab Results - Last 24 Hours (Table) 05/20/21 05/21/21 05/21/21 Range/Units 16:35 03:16 05:43 WBC (3.8-10.6) k/uL RBC (4.30-5.90) m/uL Hgb (13.0-17.5) gm/dL Hct (39.0-53.0) % Plt Count (150-450) k/uL Neutrophils # (1.3-7.7) k/uL Lymphocytes # (1.0-4.8) k/uL ABG pO2 151 H (83-108) mmHg ABG O2 Saturation 99.2 H (94-97) % Sodium (137-145) mmol/L Chloride (98-107) mmol/L Carbon Dioxide (22-30) mmol/L BUN (9-20) mg/dL Creatinine 1.35 H (0.66-1.25) mg/dL Glucose (74-99) mg/dL Calcium (8.4-10.2) mg/dL Crossmatch See Detail 05/21/21 05/21/21 Range/Units 10:23 10:23 WBC 20.8 H (3.8-10.6) k/uL RBC 2.54 L (4.30-5.90) m/uL Hgb 7.7 L D (13.0-17.5) gm/dL Hct 24.2 L (39.0-53.0) % Plt Count 721 H (150-450) k/uL Neutrophils # 18.9 H (1.3-7.7) k/uL Lymphocytes # 0.9 L (1.0-4.8) k/uL ABG pO2 (83-108) mmHg ABG O2 Saturation (94-97) % Sodium 136 L (137-145) mmol/L Chloride 110 H (98-107) mmol/L Carbon Dioxide 20 L (22-30) mmol/L BUN 42 H (9-20) mg/dL Creatinine 1.58 H (0.66-1.25) mg/dL Glucose 130 H (74-99) mg/dL Calcium 7.2 L (8.4-10.2) mg/dL Crossmatch Microbiology - Last 24 Hours (Table) 05/19/21 15:55 Gram Stain - Preliminary Aspirate Body Fluid Culture - Preliminary Yeast species Gram Neg Bacilli 05/16/21 17:08 Blood Culture - Preliminary Blood No Growth after 96 hours 05/19/21 14:09 Blood Culture - Preliminary Blood No Growth after 24 hours Assessment and Plan Assessment: Postop day #1, status post exploratory laparotomy, resection of ileocolonic anastomosis, end ileostomy, and abdominal washout. Routine postoperative ventilator management, with successful extubation, on 05/21/2021. Status post laparoscopic appendectomy, May 07, for gangrenous appendicitis, with subsequent exploratory laparotomy on May 10, for ileocecal resection. Intra-abdominal abscess, at the site of the resection, status post insertion of a percutaneous drainage catheter, May 19. History of hypertension. Plan: Plan dated 05/19/2021. The patient was transferred down to the intensive care unit for closer monitoring and management. The patient's on Exelon antibiotics in the form of meropenem, vancomycin, fluconazole, and Flagyl. Currently, the patient's getting saline at 100 mL an hour. He is a bit tachycardic. He's on room air. His only medical problem was that of hypertension for which she was taking lisinopril. The patient had a percutaneous drainage catheter placed by interventional radiology today. About 20 mL of purulent material drained into the drainage bag. It was sent for culture, etc. Additional recommendations and suggestions are forthcoming. Plan dated 05/21/2021. The patient went back to the operating room yesterday, and had an exploratory laparotomy, resection of ileocolonic anastomosis, end ileostomy, and abdominal washout. We saw the patient this morning, he was stable. He was on propofol 75 mcg/kg/m. We went ahead and place the patient on Precedex, we discontinue the propofol. We place him on 5 of pressure-support and 5 of CPAP. The patient had excellent weaning parameters. He had a positive cuff leak test, and a very low RSBI. Hence, the patient was extubated. We will continue to follow and make recommendations where appropriate. Prognosis is guarded. The patient remains on fluconazole, meropenem, metronidazole, and vancomycin. Time with Patient: Greater than 30
[2021-05-21] MEDS: MONTELUKAST 10 MG TAB PO SCH (15:44)
--- NOTE | 2021-05-21 22:24 | PN ---
PROGRESS NOTE DATE OF SERVICE: 05/21/2021 REASON FOR FOLLOWUP: Intraabdominal abscess. INTERVAL HISTORY: The patient is afebrile. The patient is currently breathing comfortably. The patient was taken to the OR yesterday and is status post laparotomy and drainage of the abscess and diverting ileostomy. Patient tolerated the procedure. The patient denies any nausea, no vomiting. Pain is currently controlled. PHYSICAL EXAMINATION: Blood pressure 116/68 with a pulse of 101, temperature of 98. He is 98% on 5 L nasal cannula. General description is a middle-aged male lying in bed in no distress. Respiratory system: Unlabored breathing, decreased breath sounds at the base. No wheeze. Heart S1, S2. Regular rate and rhythm. Abdomen soft, mildly distended. No guarding or rigidity. LABS: Hemoglobin 7.7, white count 20.8. Creatinine is 1.58. DIAGNOSTIC IMPRESSION AND PLAN: Patient with intraabdominal abscess from perforation, status post laparotomy and washout of the abscess and ileostomy. The patient's abdominal culture is showing Gram- negative and yeast. He will be continued on the meropenem and Diflucan while waiting for the culture to finalize. Will discontinue the vancomycin. at the bedside. Questions were answered. MMODL / IJN: [id number] /
[2021-05-21] MEDS ORDERED: LORazepam 2 MG/ML INJ IV ONE (23:11)
[2021-05-22] MEDS: DEXMEDETOMIDINE/0.9% NACL(PMX) 400 MCG in EMPTY BAG 1 BAG IV SCH ×2 (03:28→16:56)
[2021-05-22] MEDS: MEROPENEM 1 GM in SODIUM CHLORIDE 0.9% 100 ML IVPB SCH ×3 (03:29→18:32)
[2021-05-22] MEDS: HYDROmorphone 1 MG/ML 1 ML SYRINGE IVP PRN ×6 (03:39→21:33)
[2021-05-22 03:52] LABS: HCT 24.4 % (39.0-53.0); HGB 7.6 gm/dL (13.0-17.5); MCH 30.3 pg (25.0-35.0); MCHC 31.1 g/dL (31.0-37.0); MCV 97.4 fL (80.0-100.0); Mean Platelet Volume 7.5; Platelet Count 873 k/uL (150-450); RBC 2.51 m/uL (4.30-5.90); RDW 13.7 % (11.5-15.5); WBC 19.3 k/uL (3.8-10.6)
[2021-05-22 04:20] LABS: Calcium 7.9 mg/dL (8.4-10.2); Potassium 4.9 mmol/L (3.5-5.1)
[2021-05-22] MEDS: metroNIDAZOLE-NS PMX 500 MG in SALINE 1 100ML.BAG IVPB SCH ×3 (06:29→21:32)
[2021-05-22] MEDS: SODIUM CHLORIDE 0.9% 1,000 ML IV SCH ×2 (07:06→18:32)
[2021-05-22] MEDS: PANTOPRAZOLE 40 MG TABLET PO SCH (07:11)
--- NOTE | 2021-05-22 07:33 | P.PN ---
Subjective Progress Note Date: 05/22/21 This is a 40-year-old male patient was initially seen in the hospital at the emergency department on 05/07/2021 for abdominal pain as a transfer from [facility]. The patient was diagnosed having an acute appendicitis. The patient underwent surgery on 05/07/2021 which involved a laparoscopic appen dectomy. The appendix was gangrenous. Subsequently, the patient was taken back to the operating room for another starter laparotomy and the patient underwent an ileocecal resection and subsequent follow-up in the hospital show that the patient developed a large abscess at the area of resection which was approached by interventional radiology with a drain catheter insertion. The CT-guided abdominal drain abscess catheter insertion was done on 05/19/2021 with a total of 200 mL of purulent material was drained and the catheter was kept in place in the right lower quadrant connected to a connection bag and the patient also had a wound VAC in the right lower quadrant abdominal incision was noted some fecal material being trained for that wound VAC system. At that point, the patient also developed a component of an acute kidney injury. He was covered with broad-spectrum antibiotics including combination of IV meropenem, Flagyl and Diflucan. The patient was taken to the operating room again on 04/30/2021 for an acute abdomen and complicated intra-abdominal abscess and exploratory lapa rotomy was performed and the patient was found to have a ileocolonic perforation. The patient underwent resection of the ileocolonic anastomosis creation of a and ileostomy and abdominal washout. Following that, the patient was brought into the intensive care unit intubated on a mechanical ventilator. The patient was seen again by our services and the patient was extubated. The cultures from the abdominal wound collected on 05/19/2021 showed polymicrobial growth including E. coli, gram-negative bacilli, yeast and enterococcus group D and the blood culture was negative.. On today's evaluation, the patient remains to be extubated. The patient is currently on oxygen at 2 L per minute nasal cannula. Is using incentive spirometer. White cell count is down to 19.3. Cultures were again noted and no new I'll cultures are not available. The patient remains on the same antibiotic coverage. The patient has a TRACI drain in the left lower quadrant and the patient also has a William drain within the surgical wound. The ostomy site is functional and there is some brown stool acute bleeding within the collection bag. The patient still has an NG tube in place. Output over the past 12 hours has been in the order of 700 mL of gastric material. Ileostomy is functional as mentioned. Output from the TRACI drain is in the order of 50 mL over the past 12 hours. Objective - Vital Signs Vital signs: Vital Signs Temp 98.2 F 05/22/21 00:00 Pulse 95 05/22/21 07:00 Resp 10 L 05/22/21 07:00 BP 130/81 05/22/21 07:00 Pulse Ox 99 05/22/21 07:00 Intake & Output 05/21/21 05/22/21 05/22/21 18:59 06:59 18:59 Intake Total 1400 1650.75 100 Output Total 1340 630 770 Balance 60 1020.75 -670 Weight 144.4 kg Intake: IV 1200 1600 100 Meropenem 1 gm In Sodium 100 Chloride 0.9% 100 ml @ 33 .3 mls/hr IVPB Q8H [facility] Rx #:[id number] Sodium Chloride 0.9% 1, 1200 1200 100 000 ml @ 100 mls/hr IV . Q10H [facility] Rx#:[id number] metroNIDAZOLE-NS PMX 500 300 mg In Saline 1 100ml.bag @ 100 mls/hr IVPB Q8HR [facility] Rx#:[id number] Intake, IV Titration 200 50.75 Amount Dexmedetomidine/0.9% NaCl 50.75 (Pmx) 400 mcg In Empty Bag 1 bag @ 0.2 MCG/KG/HR 7 mls/hr IV .[id number] [facility] Rx#:[id number] propofoL 1,000 mg In 200 Empty Bag 1 bag @ Titrate IV .Q0M [facility] Rx#: [id number] Output: Gastric Drainage 700 Drainage 110 60 Left Upper Abdomen 110 60 Urine 1230 570 70 Other: Voiding Method Indwelling Catheter Indwelling Catheter - Exam No acute distress, sedated, currently on the ventilator, with an orally placed endotracheal tube and NG tube. HEENT examination is grossly unremarkable. Neck supple. Full range of motion. No adenopathy thyromegaly or neck vein distention. Cardiovascular examination reveals regular rhythm rate. S1-S2 normal. No S3 or S4. No discernible murmur noted. Heart rate 112 bpm. Lungs reveal bilateral rhonchi. No wheezes or crackles. Breath sounds equal bilaterally. Abdomen soft without bowel sounds. Ileostomy is noted. Extremities are intact. No cyanosis clubbing or edema. Skin is without rash or lesion. Neurologic examination is difficult to assess as the patient is currently sedated. - Labs CBC & Chem 7: 05/22/21 03:34 05/22/21 03:34 Labs: Abnormal Lab Results - Last 24 Hours (Table) 05/20/21 05/21/21 05/21/21 Range/Units 16:35 10:23 10:23 WBC 20.8 H (3.8-10.6) k/uL RBC 2.54 L (4.30-5.90) m/uL Hgb 7.7 L D (13.0-17.5) gm/dL Hct 24.2 L (39.0-53.0) % Plt Count 721 H (150-450) k/uL Neutrophils # 18.9 H (1.3-7.7) k/uL Lymphocytes # 0.9 L (1.0-4.8) k/uL Sodium 136 L (137-145) mmol/L Chloride 110 H (98-107) mmol/L Carbon Dioxide 20 L (22-30) mmol/L BUN 42 H (9-20) mg/dL Creatinine 1.58 H (0.66-1.25) mg/dL Glucose 130 H (74-99) mg/dL Calcium 7.2 L (8.4-10.2) mg/dL Crossmatch See Detail 05/22/21 05/22/21 Range/Units 03:34 03:34 WBC 19.3 H (3.8-10.6) k/uL RBC 2.51 L (4.30-5.90) m/uL Hgb 7.6 L (13.0-17.5) gm/dL Hct 24.4 L (39.0-53.0) % Plt Count 873 H (150-450) k/uL Neutrophils # (1.3-7.7) k/uL Lymphocytes # (1.0-4.8) k/uL Sodium (137-145) mmol/L Chloride 110 H (98-107) mmol/L Carbon Dioxide (22-30) mmol/L BUN 46 H (9-20) mg/dL Creatinine 1.73 H (0.66-1.25) mg/dL Glucose 105 H (74-99) mg/dL Calcium 7.9 L (8.4-10.2) mg/dL Crossmatch Microbiology - Last 24 Hours (Table) 05/16/21 17:08 Blood Culture - Preliminary Blood No Growth after 120 hours 05/19/21 15:55 Gram Stain - Preliminary Aspirate Body Fluid Culture - Preliminary Yeast species Escherichia coli Gram Neg Bacilli Group D Enterococcus 05/19/21 14:09 Blood Culture - Preliminary Blood No Growth after 48 hours Assessment and Plan Plan: 1 Postop day #2, status post exploratory laparotomy, resection of perforated ileocolonic anastomosis and the surgery was done on 05/20/2021, end ileostomy, and abdominal washout. 2 Routine postoperative ventilator management, with successful extubation, on 05/21/2021. 3 Status post laparoscopic appendectomy, 05/07/2021, for gangrenous appendicitis, with subsequent exploratory laparotomy on 05/10/2021, for ileocecal resection with anastomosis 4 complicated gangrenous appendicitis with secondary Intra-abdominal abscess, at the site of the resection, status post insertion of a percutaneous drainage catheter, on 05/19/2021 and the cultures are polymicrobial including yeast, E. coli, gram-negative bacillus, and enterococcus group D 5 History of hypertension. 6 acute leukocytosis, improving 7 acute kidney injury secondary to above, consider ATN 8 acute anemia, multifactorial including blood loss anemia secondary to various other abdominal surgeries 9 secondary thrombocytosis related to underlying infection Plan: NG tube in place, output is still considerably high We'll continue same antibiotic coverage for now pending further cultures Hemodynamically stable Patient is currently extubated on 2 L about 2 by nasal cannula and is using ayla ntive spirometer Ileostomy is functional Daily dressing and wound change and care May transferred to surgical unit today if surgical team is agreeable. Keep the patient nothing by mouth for now. Output from the NG tube is felt considerably high.
--- NOTE | 2021-05-22 09:11 | XR ---
EXAMINATION TYPE: XR chest 1V portable DATE OF EXAM: 05/22/2021 COMPARISON: 05/21/2021 HISTORY: Pleural effusion TECHNIQUE: Single frontal view of the chest is obtained. FINDINGS: Subsegmental changes. Limited inspiration. NG tube seen. Right-sided central line noted wi th no pneumothorax. Perihilar subsegmental changes. ET tube not seen with certainty. IMPRESSION: Perihilar subsegmental changes most likely in the basis of atelectasis.
[2021-05-22] MEDS: FLUCONAZOLE IN NACL,ISO-OSM 200 MG in SALINE 1 100ML.BAG IVPB SCH (09:35)
[2021-05-22] MEDS: CHLORHEXIDINE GLUCONATE 15 ML CUP MUCOUS MEM SCH (09:35)
[2021-05-22] MEDS: ENOXAPARIN 40 MG/0.4 ML SYRINGE SQ SCH (09:35)
[2021-05-22] MEDS: lisinopriL 10 MG TAB PO SCH (09:47)
[2021-05-22] MEDS: NAPROXEN 250 MG TAB PO SCH ×2 (09:47→20:29)
[2021-05-22] MEDS: MONTELUKAST 10 MG TAB PO SCH (09:47)
[2021-05-22] MEDS: PANTOPRAZOLE 40 MG/10 ML VIAL IVP SCH (10:36)
--- NOTE | 2021-05-22 10:42 | P.PN ---
Subjective Progress Note Date: 05/22/21 Principal diagnosis: Status post drainage of abscess, bowel resection, ileostomy creation due to complicated appendicitis The patient is seen on rounds. He is postoperative day 2 from a laparotomy with drainage of abscess, bowel resection and creation of ileostomy. Patient was extubated yesterday. He is feeling okay today. Denies any cough or shortness of breath. Pain is controlled with IV push Dilaudid. Has not used his incentive spirometry since surgery Objective - Vital Signs Vital signs: Vital Signs Temp 98.2 F 05/22/21 00:00 Pulse 95 05/22/21 07:00 Resp 10 L 05/22/21 07:00 BP 130/81 05/22/21 07:00 Pulse Ox 99 05/22/21 07:00 Intake & Output 05/21/21 05/22/21 05/22/21 18:59 06:59 18:59 Intake Total 1400 1650.75 100 Output Total 1340 630 770 Balance 60 1020.75 -670 Weight 144.4 kg Intake: IV 1200 1600 100 Meropenem 1 gm In Sodium 100 Chloride 0.9% 100 ml @ 33 .3 mls/hr IVPB Q8H [facility] Rx #:[id number] Sodium Chloride 0.9% 1, 1200 1200 100 000 ml @ 100 mls/hr IV . Q10H [facility] Rx#:[id number] metroNIDAZOLE-NS PMX 500 300 mg In Saline 1 100ml.bag @ 100 mls/hr IVPB Q8HR [facility] Rx#:[id number] Intake, IV Titration 200 50.75 Amount Dexmedetomidine/0.9% NaCl 50.75 (Pmx) 400 mcg In Empty Bag 1 bag @ 0.2 MCG/KG/HR 7 mls/hr IV .[id number] [facility] Rx#:[id number] propofoL 1,000 mg In 200 Empty Bag 1 bag @ Titrate IV .Q0M [facility] Rx#: [id number] Output: Gastric Drainage 700 Drainage 110 60 Left Upper Abdomen 110 60 Urine 1230 570 70 Other: Voiding Method Indwelling Catheter Indwelling Catheter - Constitutional General appearance: Present: cooperative, no acute distress - Respiratory Respiratory: bilateral: CTA, diminished (At the bases), negative: rhonchi - Cardiovascular Rhythm: regular - Gastrointestinal General gastrointestinal: Present: absent bowel sounds, soft Localized gastrointestinal: surgical scar: diffuse (Incisions are intact, clean and dry. TRACI is serosanguineous. Ileostomy is viable with a small amount of bilious output. NG output is fairly high) - Labs CBC & Chem 7: 05/22/21 03:34 05/22/21 03:34 Labs: Abnormal Lab Results - Last 24 Hours (Table) 05/20/21 05/21/21 05/21/21 Range/Units 16:35 10:23 10:23 WBC 20.8 H (3.8-10.6) k/uL RBC 2.54 L (4.30-5.90) m/uL Hgb 7.7 L D (13.0-17.5) gm/dL Hct 24.2 L (39.0-53.0) % Plt Count 721 H (150-450) k/uL Neutrophils # 18.9 H (1.3-7.7) k/uL Lymphocytes # 0.9 L (1.0-4.8) k/uL Sodium 136 L (137-145) mmol/L Chloride 110 H (98-107) mmol/L Carbon Dioxide 20 L (22-30) mmol/L BUN 42 H (9-20) mg/dL Creatinine 1.58 H (0.66-1.25) mg/dL Glucose 130 H (74-99) mg/dL Calcium 7.2 L (8.4-10.2) mg/dL Crossmatch See Detail 05/22/21 05/22/21 Range/Units 03:34 03:34 WBC 19.3 H (3.8-10.6) k/uL RBC 2.51 L (4.30-5.90) m/uL Hgb 7.6 L (13.0-17.5) gm/dL Hct 24.4 L (39.0-53.0) % Plt Count 873 H (150-450) k/uL Neutrophils # (1.3-7.7) k/uL Lymphocytes # (1.0-4.8) k/uL Sodium (137-145) mmol/L Chloride 110 H (98-107) mmol/L Carbon Dioxide (22-30) mmol/L BUN 46 H (9-20) mg/dL Creatinine 1.73 H (0.66-1.25) mg/dL Glucose 105 H (74-99) mg/dL Calcium 7.9 L (8.4-10.2) mg/dL Crossmatch Microbiology - Last 24 Hours (Table) 05/16/21 17:08 Blood Culture - Preliminary Blood No Growth after 120 hours 05/19/21 15:55 Gram Stain - Preliminary Aspirate Body Fluid Culture - Preliminary Yeast species Escherichia coli Gram Neg Bacilli Group D Enterococcus 05/19/21 14:09 Blood Culture - Preliminary Blood No Growth after 48 hours Assessment and Plan (1) Acute appendicitis Current Visit: Yes Status: Acute Code(s): K35.80 - UNSPECIFIED ACUTE APPENDICITIS SNOMED Code(s): 14810144 (2) Acute gangrenous appendicitis with perforation and peritonitis Current Visit: Yes Status: Acute Code(s): K35.32 - ACUTE APPENDICITIS WITH PERF AND LOC PERITONITIS, W/O ABSCS SNOMED Code(s): 41903947 (3) Small bowel perforation Current Visit: Yes Status: Acute Code(s): K63.1 - PERFORATION OF INTESTINE (NONTRAUMATIC) SNOMED Code(s): 478069401 (4) Acute kidney injury Current Visit: Yes Status: Acute Code(s): N17.9 - ACUTE KIDNEY FAILURE, UNSPECIFIED SNOMED Code(s): 04225044 (5) Anemia Current Visit: Yes Status: Acute Code(s): D64.9 - ANEMIA, UNSPECIFIED SNOMED Code(s): 216633793 Plan: Patient is hemodynamically stable. Encouraged incentive spirometry. We did discuss [employer] for IV push Dilaudid. He would like to use the IV push Dilaudid as needed at this time. We'll get him up to a chair. Start TPN since he hasn't had good oral intake and will likely have a ileus for 4-5 more days. Continue IV antibiotics and antifungals. Monitor electrolytes, hemoglobin, WBC and kidney function. Surgically stable to transfer to a surgical floor later today if ICU bed is needed. Monitor ileostomy closely. Explained to the pat ient that he is at risk for that to have some breakdown.
[2021-05-22] MEDS: ACETAMINOPHEN IV (For NPO) 1,000 MG in EMPTY BAG 1 BAG IVPB PRN ×2 (12:15→18:53)
[2021-05-22] MEDS ORDERED: VANCOMYCIN TROUGH DUE 1 EACH MISC MISCELLANE ONE (13:00)
[2021-05-22 14:39] LABS: Albumin 2.1 g/dL (3.5-5.0); Magnesium 2.7 mg/dL (1.6-2.3); Phosphorus 4.1 mg/dL (2.5-4.5)
[2021-05-22 14:40] LABS: Ionized Calcium 5.1 mg/dL (4.5-5.3)
[2021-05-22] MEDS ORDERED: MVI, ADULT NO.4 WITH VIT K 10 ML, TRACE (CONC-1ML/DOSE) 1 ML, CALCIUM GLUCONATE 1 GM, S... IV ONE ×6 (16:00)
[2021-05-22] MEDS ORDERED: FAT EMULSION 20% 500 ML in EMPTY BAG 1 BAG IV SCH (16:00)
[2021-05-22 18:50] LABS: Glucose,Whole Blood 117 mg/dL (75-99)
[2021-05-22] MEDS: INSULIN ASPART (NovoLOG) 100 UNIT/ML VIAL SQ SCH (18:53)
--- NOTE | 2021-05-22 22:18 | PN ---
PROGRESS NOTE DATE OF SERVICE: 05/22/2021 REASON FOR FOLLOWUP: Intraabdominal abscess and sepsis. INTERVAL HISTORY: The patient is afebrile. The patient is currently breathing comfortably. The patient's abdominal pain is currently controlled. No chest pain, shortness of breath or cough. No significant abdominal pain, nausea or vomiting. PHYSICAL EXAMINATION: Blood pressure 134/77 with a pulse of 92, temperature 98.8. He is 100% on 4 L nasal cannula. General description is a middle-aged male up in the chair in no distress. Respiratory system: Unlabored breathing, decreased intensity of breath sounds. No wheeze. Heart S1, S2. Regular rate and rhythm. Abdomen soft, mildly distended. No guarding or rigidity. LABS: Abdominal culture is showing a Gram-negative, E coli, Enterococcus and yeast. DIAGNOSTIC IMPRESSION AND PLAN: Patient with an intraabdominal abscess from perforated , status post laparotomy, drainage of the abscess as well as diverting ileostomy. The patient's white count is down to 19.3. Abdominal culture has multiple pathogen. Will wait for the final ID and sensitivity before adjusting antibiotic further. Currently covered with meropenem and Diflucan; to continue. Continue with supportive care. MMODL / IJN: [id number] /
[2021-05-23] MEDS: HYDROmorphone 1 MG/ML 1 ML SYRINGE IVP PRN ×8 (00:56→22:03)
[2021-05-23] MEDS: INSULIN ASPART (NovoLOG) 100 UNIT/ML VIAL SQ SCH ×4 (00:57→18:53)
[2021-05-23] MEDS: MEROPENEM 1 GM in SODIUM CHLORIDE 0.9% 100 ML IVPB SCH ×3 (03:21→18:57)
[2021-05-23] MEDS: SODIUM CHLORIDE 0.9% 1,000 ML IV SCH ×2 (03:26→18:56)
[2021-05-23] MEDS: ACETAMINOPHEN IV (For NPO) 1,000 MG in EMPTY BAG 1 BAG IVPB PRN (03:34)
[2021-05-23 05:12] LABS: Magnesium 2.5 mg/dL (1.6-2.3); Phosphorus 4.9 mg/dL (2.5-4.5); Potassium 4.8 mmol/L (3.5-5.1)
[2021-05-23] MEDS: metroNIDAZOLE-NS PMX 500 MG in SALINE 1 100ML.BAG IVPB SCH ×3 (05:29→22:03)
[2021-05-23] MEDS: DEXMEDETOMIDINE/0.9% NACL(PMX) 400 MCG in EMPTY BAG 1 BAG IV SCH ×2 (05:31→22:13)
--- NOTE | 2021-05-23 07:30 | P.PN ---
Subjective Progress Note Date: 05/23/21 This is a 40-year-old male patient was initially seen in the hospital at the emergency department on 05/07/2021 for abdominal pain as a transfer from [facility]. The patient was diagnosed having an acute appendicitis. The patient underwent surgery on 05/07/2021 which involved a laparoscopic benjamin endectomy. The appendix was gangrenous. Subsequently, the patient was taken back to the operating room for another starter laparotomy and the patient underwent an ileocecal resection and subsequent follow-up in the hospital show that the patient developed a large abscess at the area of resection which was approached by interventional radiology with a drain catheter insertion. The CT- guided abdominal drain abscess catheter insertion was done on 05/19/2021 with a total of 200 mL of purulent material was drained and the catheter was kept in place in the right lower quadrant connected to a connection bag and the patient also had a wound VAC in the right lower quadrant abdominal incision was noted some fecal material being trained for that wound VAC system. At that point, the patient also developed a component of an acute kidney injury. He was covered with broad-spectrum antibiotics including combination of IV meropenem, Flagyl and Diflucan. The patient was taken to the operating room again on 04/30/2021 for an acute abdomen and complicated intra-abdominal abscess and exploratory la parotomy was performed and the patient was found to have a ileocolonic perforation. The patient underwent resection of the ileocolonic anastomosis creation of a and ileostomy and abdominal washout. Following that, the patient was brought into the intensive care unit intubated on a mechanical ventilator. The patient was seen again by our services and the patient was extubated. The cultures from the abdominal wound collected on 05/19/2021 showed polymicrobial growth including E. coli, gram-negative bacilli, yeast and enterococcus group D and the blood culture was negative.. On today's evaluation, the patient remains to be extubated. The patient is currently on oxygen at 2 L per minute nasal cannula. Is using incentive spirometer. White cell count is down to 19.3. Cultures were again noted and no new I'll cultures are not available. The patient remains on the same antibiotic coverage. The patient has a TRACI drain in the left lower quadrant and the patient also has a Velva drain within the surgical wound. The ostomy site is functional and there is some brown stool acute bleeding within the collection bag. The patient still has an NG tube in place. Output over the past 12 hours has been in the order of 700 mL of gastric material. Ileostomy is functional as mentioned. Output from the TRACI drain is in the order of 50 mL over the past 12 hours. 05/23/2021, the patient is being seen for a follow-up. He is awake and alert. He is on oxygen at 2 L per minute nasal cannula and the patient has been extubated successfully. NG tube is in place and overnight the patient produced approximately 200 mL of output. His ileostomy site is functional and viable at this point in time. No abdominal distention. The incision is dry clean and intact. The patient has a William drain which is still draining the surgical wound and the dressing changes being done on a regular basis. As for the TRACI drain in his left lower quadrant, the output is in the order of 20 mL and he sees overnight. He is doing well. The blood work is still pending for now. His creatinine is down to 1.4 with a BUN of 40. Note that his white cell, was also improving yesterday. He remains on broad-spectrum antibiotic coverage. The cultures are essentially unchanged and it showed a combination of yeast, E. coli and enterococcus group D and for that reason, the patient is still covered with broad-spectrum antibiotics including a combination of mental plan, Diflucan, and Flagyl. He is receiving Diflucan at a dose of 200 mg IV every 24 hours. IV fluids are running at 100 mL of normal saline and the patient was also started on TPN for nutritional support. He was kept nothing by mouth since his surgery. The patient has a right IJ double-lumen catheter in place. No fever. No altered mentation. No cardiac arrhythmias. No chest pain. No hypoglycemia. He remains on Lovenox for DVT prophylaxis. Objective - Vital Signs Vital signs: Vital Signs Temp 98.1 F 05/23/21 04:00 Pulse 94 05/23/21 06:00 Resp 9 L 05/23/21 06:00 BP 134/89 05/23/21 06:00 Pulse Ox 98 05/23/21 06:00 Intake & Output 05/22/21 05/23/21 05/23/21 18:59 06:59 18:59 Intake Total 1620 1930 Output Total 1675 975 Balance -55 955 Weight 144.4 kg 141.2 kg Intake: IV 1200 1930 ACETAMINOPHEN IV (For NPO 200 ) 1,000 mg In Empty Bag 1 bag @ 400 mls/hr IVPB Q6HR [facility] Rx#:[id number] Meropenem 1 gm In Sodium 100 Chloride 0.9% 100 ml @ 33 .3 mls/hr IVPB Q8H [facility] Rx #:[id number] Mvi, Adult No.4 with Vit 330 K 10 ml Trace (Conc-1Ml/ Dose) 1 ml Calcium Gluconate 1 gm Sodium Acetate 30 meq Potassium Phosphate 15 mmol In Amino Acids 5 %/Dextrose 20 % 1,000 ml @ 30 mls/hr IV .Q24H [facility] Rx#: [id number] Sodium Chloride 0.9% 1, 1200 1200 000 ml @ 100 mls/hr IV . Q10H [facility] Rx#:[id number] metroNIDAZOLE-NS PMX 500 100 mg In Saline 1 100ml.bag @ 100 mls/hr IVPB Q8H [facility] Rx#:[id number] Intake, IV Titration 300 Amount Fluconazole in NaCl,Iso- 100 Osm 200 mg In Saline 1 100ml.bag @ 100 mls/hr IVPB DAILY [facility] Rx#: [id number] Meropenem 1 gm In Sodium 100 Chloride 0.9% 100 ml @ 33 .3 mls/hr IVPB Q8H [facility] Rx #:[id number] metroNIDAZOLE-NS PMX 500 100 mg In Saline 1 100ml.bag @ 100 mls/hr IVPB Q8H [facility] Rx#:[id number] Oral 120 Output: Gastric Drainage 700 200 Drainage 45 20 Left Upper Abdomen 45 20 Urine 930 755 Other: Voiding Method Indwelling Catheter Indwelling Catheter - Exam No acute distress, sedated, currently on the ventilator, with an orally placed endotracheal tube and NG tube. HEENT examination is grossly unremarkable. Neck supple. Full range of motion. No adenopathy thyromegaly or neck vein di stention. Cardiovascular examination reveals regular rhythm rate. S1-S2 normal. No S3 or S4. No discernible murmur noted. Heart rate 112 bpm. Lungs reveal bilateral rhonchi. No wheezes or crackles. Breath sounds equal bilaterally. Abdomen soft without bowel sounds. Ileostomy is noted. Extremities are intact. No cyanosis clubbing or edema. Skin is without rash or lesion. Neurologic examination is difficult to assess as the patient is currently sedated. - Labs CBC & Chem 7: 05/22/21 03:34 05/23/21 03:25 Labs: Abnormal Lab Results - Last 24 Hours (Table) 05/22/21 05/22/21 05/23/21 Range/Units 14:07 18:48 03:25 Chloride 109 H (98-107) mmol/L BUN 40 H (9-20) mg/dL Creatinine 1.48 H (0.66-1.25) mg/dL Glucose 121 H (74-99) mg/dL POC Glucose (mg/dL) 117 H (75-99) mg/dL Calcium 8.0 L (8.4-10.2) mg/dL Phosphorus 4.9 H (2.5-4.5) mg/dL Magnesium 2.7 H 2.5 H (1.6-2.3) mg/dL Albumin 2.1 L (3.5-5.0) g/dL Triglycerides 257.00 H (0.00-149.00) mg/dL Microbiology - Last 24 Hours (Table) 05/16/21 17:08 Blood Culture - Final Blood No Growth after 144 hours 05/19/21 14:09 Blood Culture - Preliminary Blood No Growth after 72 hours Assessment and Plan Plan: 1 Postop day #3, status post exploratory laparotomy, resection of perforated ileocolonic anastomosis and the surgery was done on 05/20/2021, end ileostomy, and abdominal washout. 2 Routine postoperative ventilator management, with successful extubation, on 05/21/2021. 3 Status post laparoscopic appendectomy, 05/07/2021, for gangrenous appendicitis, with subsequent exploratory laparotomy on 05/10/2021, for ileocecal resection with anastomosis 4 complicated gangrenous appendicitis with secondary Intra-abdominal abscess, at the site of the resection, status post insertion of a percutaneous drainage catheter, on 05/19/2021 and the cultures are polymicrobial including yeast, E. coli, gram-negative bacillus, and enterococcus group D 5 History of hypertension. 6 acute leukocytosis, improving 7 acute kidney injury secondary to above, consider ATN, functions stable and improving 8 acute anemia, multifactorial including blood loss anemia secondary to various other abdominal surgeries 9 secondary thrombocytosis related to underlying infection Plan: NG tube in place, output is still his high We'll continue same antibiotic coverage for now pending further cultures Hemodynamically stable Ileostomy is functional Daily dressing and wound change and care May transferred to surgical unit today if surgical team is agreeable. to IS Dilaudid for pain control TPN for nutrition Keep the patient nothing by mouth for now.
--- NOTE | 2021-05-23 08:06 | XR ---
EXAMINATION TYPE: XR chest 1V portable DATE OF EXAM: 05/23/2021 COMPARISON: 05/22/2021 HISTORY: Shortness of breath TECHNIQUE: Single frontal view of the chest is obtained. FINDINGS: Subsegmental changes. Limited inspiration. NG tube seen. Right-sided central line noted wi th no pneumothorax. Perihilar subsegmental changes. ET tube not seen with certainty. IMPRESSION: Perihilar subsegmental changes most likely in the basis of atelectasis.
[2021-05-23] MEDS: lisinopriL 10 MG TAB PO SCH (10:48)
[2021-05-23] MEDS: MONTELUKAST 10 MG TAB PO SCH (10:48)
[2021-05-23] MEDS: NAPROXEN 250 MG TAB PO SCH ×2 (10:48→22:14)
[2021-05-23] MEDS: FLUCONAZOLE IN NACL,ISO-OSM 200 MG in SALINE 1 100ML.BAG IVPB SCH (10:48)
[2021-05-23] MEDS: PANTOPRAZOLE 40 MG/10 ML VIAL IVP SCH (10:48)
[2021-05-23] MEDS: ENOXAPARIN 40 MG/0.4 ML SYRINGE SQ SCH (10:48)
[2021-05-23 11:06] LABS: Glucose,Whole Blood 131 mg/dL (75-99)
--- NOTE | 2021-05-23 11:45 | P.PN ---
Subjective Progress Note Date: 05/23/21 Principal diagnosis: Status post drainage of abscess, bowel resection, ileostomy creation due to complicated appendicitis The patient is seen on rounds. He said he had a "tough night". He did not sleep well. Was out of bed yesterday. Denies chest pain or shortness of breath. No nausea or vomiting. Objective - Vital Signs Vital signs: Vital Signs Temp 98.1 F 05/23/21 04:00 Pulse 94 05/23/21 06:00 Resp 9 L 05/23/21 06:00 BP 134/89 05/23/21 06:00 Pulse Ox 98 05/23/21 06:00 Intake & Output 05/22/21 05/23/21 05/23/21 18:59 06:59 18:59 Intake Total 1620 1930 Output Total 1675 975 100 Balance -55 955 -100 Weight 144.4 kg 141.2 kg Intake: IV 1200 1930 ACETAMINOPHEN IV (For NPO 200 ) 1,000 mg In Empty Bag 1 bag @ 400 mls/hr IVPB Q6HR PRN Rx#:[id number] Meropenem 1 gm In Sodium 100 Chloride 0.9% 100 ml @ 33 .3 mls/hr IVPB Q8H [facility] Rx #:[id number] Mvi, Adult No.4 with Vit 330 K 10 ml Trace (Conc-1Ml/ Dose) 1 ml Calcium Gluconate 1 gm Sodium Acetate 30 meq Potassium Phosphate 15 mmol In Amino Acids 5 %/Dextrose 20 % 1,000 ml @ 30 mls/hr IV .Q24H [facility] Rx#: [id number] Sodium Chloride 0.9% 1, 1200 1200 000 ml @ 100 mls/hr IV . Q10H [facility] Rx#:[id number] metroNIDAZOLE-NS PMX 500 100 mg In Saline 1 100ml.bag @ 100 mls/hr IVPB Q8H [facility] Rx#:[id number] Intake, IV Titration 300 Amount Fluconazole in NaCl,Iso- 100 Osm 200 mg In Saline 1 100ml.bag @ 100 mls/hr IVPB DAILY [facility] Rx#: [id number] Meropenem 1 gm In Sodium 100 Chloride 0.9% 100 ml @ 33 .3 mls/hr IVPB Q8H [facility] Rx #:[id number] metroNIDAZOLE-NS PMX 500 100 mg In Saline 1 100ml.bag @ 100 mls/hr IVPB Q8H [facility] Rx#:[id number] Oral 120 Output: Gastric Drainage 700 200 Drainage 45 20 Left Upper Abdomen 45 20 Urine 930 755 Stool 100 Other: Voiding Method Indwelling Catheter Indwelling Catheter - Constitutional General appearance: Present: cooperative, no acute distress - Respiratory Respiratory: bilateral: CTA, diminished, negative: rhonchi - Cardiovascular Rhythm: regular - Gastrointestinal General gastrointestinal: Present: absent bowel sounds, soft Localized gastrointestinal: surgical scar: diffuse (incisions are clean and dry. TRACI is serosanguineous. Ostomy pink, minimal bilious output) - Labs CBC & Chem 7: 05/22/21 03:34 05/23/21 03:25 Labs: Abnormal Lab Results - Last 24 Hours (Table) 05/22/21 05/22/21 05/23/21 Range/Units 14:07 18:48 03:25 Chloride 109 H (98-107) mmol/L BUN 40 H (9-20) mg/dL Creatinine 1.48 H (0.66-1.25) mg/dL Glucose 121 H (74-99) mg/dL POC Glucose (mg/dL) 117 H (75-99) mg/dL Calcium 8.0 L (8.4-10.2) mg/dL Phosphorus 4.9 H (2.5-4.5) mg/dL Magnesium 2.7 H 2.5 H (1.6-2.3) mg/dL Albumin 2.1 L (3.5-5.0) g/dL Triglycerides 257.00 H (0.00-149.00) mg/dL 05/23/21 Range/Units 11:04 Chloride (98-107) mmol/L BUN (9-20) mg/dL Creatinine (0.66-1.25) mg/dL Glucose (74-99) mg/dL POC Glucose (mg/dL) 131 H (75-99) mg/dL Calcium (8.4-10.2) mg/dL Phosphorus (2.5-4.5) mg/dL Magnesium (1.6-2.3) mg/dL Albumin (3.5-5.0) g/dL Triglycerides (0.00-149.00) mg/dL Microbiology - Last 24 Hours (Table) 05/16/21 17:08 Blood Culture - Final Blood No Growth after 144 hours 05/19/21 14:09 Blood Culture - Preliminary Blood No Growth after 72 hours Assessment and Plan (1) Acute appendicitis Current Visit: Yes Status: Acute Code(s): K35.80 - UNSPECIFIED ACUTE A PPENDICITIS SNOMED Code(s): 04486070 (2) Acute gangrenous appendicitis with perforation and peritonitis Current Visit: Yes Status: Acute Code(s): K35.32 - ACUTE APPENDICITIS WITH PERF AND LOC PERITONITIS, W/O ABSCS SNOMED Code(s): 21889466 (3) Small bowel perforation Current Visit: Yes Status: Acute Code(s): K63.1 - PERFORATION OF INTESTINE (NONTRAUMATIC) SNOMED Code(s): 511740406 (4) Acute kidney injury Current Visit: Yes Status: Acute Code(s): N17.9 - ACUTE KIDNEY FAILURE, UNSPECIFIED SNOMED Code(s): 40915727 (5) Anemia Current Visit: Yes Status: Acute Code(s): D64.9 - ANEMIA, UNSPECIFIED SNOMED Code(s): 842509993 Plan: Surgically stable for transfer to surgical floor. Increase activity as tolerated. Continue TPN. Anticipate ileus for another 3 to 5 days. Ostomy nurse has been in to see patient and will change appliance later. Continue broad-spectrum antibiotics and antifungals pending culture. Progressing slowly. Questions were encouraged and answered
[2021-05-23] MEDS ORDERED: 1: MVI, ADULT NO.4 WITH VIT K 10 ML, TRACE (CONC-1ML/DOSE) 1 ML, CALCIUM GLUCONATE 1 GM, IV SCH ×6 (16:00)
[2021-05-23] MEDS: 1: MVI, ADULT NO.4 WITH VIT K 10 ML, TRACE (CONC-1ML/DOSE) 1 ML, CALCIUM GLUCONATE 1 GM, IV SCH ×5 (17:39)
[2021-05-23 18:23] LABS: Glucose,Whole Blood 136 mg/dL (75-99)
--- NOTE | 2021-05-23 22:56 | PN ---
PROGRESS NOTE DATE OF SERVICE: 05/23/2021 REASON FOR FOLLOWUP: Abdominal abscess. INTERVAL HISTORY: The patient is afebrile. The patient is currently breathing comfortably. Mentioned not feeling that good today. No worsening abdominal pain, though. No nausea, no vomiting. PHYSICAL EXAMINATION: Blood pressure is 147/97 with a pulse of 101, temperature of 98.2. He is 97% on room air. General description is a middle-aged male lying in bed in no distress. Respiratory system: Unlabored breathing, clear to auscultation anteriorly. Heart S1, S2. Regular rate and rhythm. Abdomen soft, no tenderness. Mild distention. LABS: Creatinine is 1.48. CBC was not done today. Abdominal culture did show a Gram- negative which has not been identified along with yeast. DIAGNOSTIC IMPRESSION AND PLAN: Patient with abdominal abscess from bowel perforation, status post drainage of the abscess and diverting ileostomy. The patient's abdominal culture has multiple pathogens that have not been finalized. Covered with meropenem and Diflucan, with discharge antibiotic on the basis of the other cultures. Continue supportive care. MMODL / IJN: [id number] /
[2021-05-24 00:01] LABS: Glucose,Whole Blood 121 mg/dL (75-99)
[2021-05-24] MEDS: HYDROmorphone 1 MG/ML 1 ML SYRINGE IVP PRN ×11 (00:04→22:17)
[2021-05-24] MEDS: INSULIN ASPART (NovoLOG) 100 UNIT/ML VIAL SQ SCH ×4 (00:05→17:33)
[2021-05-24] MEDS: SODIUM CHLORIDE 0.9% 1,000 ML IV SCH ×3 (00:50→17:36)
[2021-05-24] MEDS: MEROPENEM 1 GM in SODIUM CHLORIDE 0.9% 100 ML IVPB SCH ×3 (02:08→17:35)
[2021-05-24 04:19] LABS: Basophils # (A) 0.1 k/uL (0-0.2); Basophils % (A) 1 %; Eosinophils # (A) 0.4 k/uL (0-0.7); Eosinophils % (A) 4 %; HGB 7.3 gm/dL (13.0-17.5); Hypochromasia Slight; Lymphocytes # (A) 1.2 k/uL (1.0-4.8); Lymphocytes % (A) 12 %; MCHC 31.5 g/dL (31.0-37.0); MCV 95.3 fL (80.0-100.0); Mean Platelet Volume 7.2; Monocytes # (A) 0.9 k/uL (0-1.0); Monocytes % (A) 8 %; Neutrophils % (A) 74 %; Platelet Count 769 k/uL (150-450); RBC 2.42 m/uL (4.30-5.90); RDW 13.2 % (11.5-15.5); WBC 10.8 k/uL (3.8-10.6)
[2021-05-24 04:35] LABS: C Reactive Protein 6.9 mg/dL (<1.0); Calcium 8.2 mg/dL (8.4-10.2); Magnesium 2.2 mg/dL (1.6-2.3); Phosphorus 4.1 mg/dL (2.5-4.5)
[2021-05-24] MEDS: 1: MVI, ADULT NO.4 WITH VIT K 10 ML, TRACE (CONC-1ML/DOSE) 1 ML, CALCIUM GLUCONATE 1 GM, IV SCH ×10 (05:42→22:16)
[2021-05-24] MEDS: metroNIDAZOLE-NS PMX 500 MG in SALINE 1 100ML.BAG IVPB SCH ×3 (05:44→22:18)
[2021-05-24 05:55] LABS: Glucose,Whole Blood 151 mg/dL (75-99)
--- NOTE | 2021-05-24 08:21 | P.PN ---
Subjective Progress Note Date: 05/24/21 This is a 40-year-old male patient was initially seen in the hospital at the emergency department on 05/07/2021 for abdominal pain as a transfer from [facility]. The patient was diagnosed having an acute appendicitis. The patient underwent surgery on 05/07/2021 which involved a laparoscopic benjamin endectomy. The appendix was gangrenous. Subsequently, the patient was taken back to the operating room for another starter laparotomy and the patient underwent an ileocecal resection and subsequent follow-up in the hospital show that the patient developed a large abscess at the area of resection which was approached by interventional radiology with a drain catheter insertion. The CT- guided abdominal drain abscess catheter insertion was done on 05/19/2021 with a total of 200 mL of purulent material was drained and the catheter was kept in place in the right lower quadrant connected to a connection bag and the patient also had a wound VAC in the right lower quadrant abdominal incision was noted some fecal material being trained for that wound VAC system. At that point, the patient also developed a component of an acute kidney injury. He was covered with broad-spectrum antibiotics including combination of IV meropenem, Flagyl and Diflucan. The patient was taken to the operating room again on 04/30/2021 for an acute abdomen and complicated intra-abdominal abscess and exploratory la parotomy was performed and the patient was found to have a ileocolonic perforation. The patient underwent resection of the ileocolonic anastomosis creation of a and ileostomy and abdominal washout. Following that, the patient was brought into the intensive care unit intubated on a mechanical ventilator. The patient was seen again by our services and the patient was extubated. The cultures from the abdominal wound collected on 05/19/2021 showed polymicrobial growth including E. coli, gram-negative bacilli, yeast and enterococcus group D and the blood culture was negative.. On today's evaluation, the patient remains to be extubated. The patient is currently on oxygen at 2 L per minute nasal cannula. Is using incentive spirometer. White cell count is down to 19.3. Cultures were again noted and no new I'll cultures are not available. The patient remains on the same antibiotic coverage. The patient has a TRACI drain in the left lower quadrant and the patient also has a [place] drain within the surgical wound. The ostomy site is functional and there is some brown stool acute bleeding within the collection bag. The patient still has an NG tube in place. Output over the past 12 hours has been in the order of 700 mL of gastric material. Ileostomy is functional as mentioned. Output from the TRACI drain is in the order of 50 mL over the past 12 hours. 05/23/2021, the patient is being seen for a follow-up. He is awake and alert. He is on oxygen at 2 L per minute nasal cannula and the patient has been extubated successfully. NG tube is in place and overnight the patient produced approximately 200 mL of output. His ileostomy site is functional and viable at this point in time. No abdominal distention. The incision is dry clean and intact. The patient has a William drain which is still draining the surgical wound and the dressing changes being done on a regular basis. As for the TRACI drain in his left lower quadrant, the output is in the order of 20 mL and he sees overnight. He is doing well. The blood work is still pending for now. His creatinine is down to 1.4 with a BUN of 40. Note that his white cell, was also improving yesterday. He remains on broad-spectrum antibiotic coverage. The cultures are essentially unchanged and it showed a combination of yeast, E. coli and enterococcus group D and for that reason, the patient is still covered with broad-spectrum antibiotics including a combination of mental plan, Diflucan, and Flagyl. He is receiving Diflucan at a dose of 200 mg IV every 24 hours. IV fluids are running at 100 mL of normal saline and the patient was also started on TPN for nutritional support. He was kept nothing by mouth since his surgery. The patient has a right IJ double-lumen catheter in place. No fever. No altered mentation. No cardiac arrhythmias. No chest pain. No hypoglycemia. He remains on Lovenox for DVT prophylaxis. 05/24/2021 patient is doing well. The patient has no specific complaints. His NG tube is still in place and output has been in the order of 100 mL over the past 12 hours. Ileostomy is functional. Output from the ileostomy has been also liquidy and in smaller amounts. The patient has sluggish bowel sounds for now. Surgical wound site is dry clean and intact. TRACI drain has been draining minimal amount of output. [place] tube is also present in the surgical wound site. The patient feels better. He was able to sit up on a recliner. He is on room air oxygen. His white cell count is also improving and his white cell count is down to 10. The patient is also on broad-spectrum antibiotics and no new cultures are available. He is receiving TPN for nutritional support. The fluid balance is +2.5 L over the past 24 hours and I would suggest cutting down the normal saline to KVO and keeping the patient only on TPN for now. He has a right IJ double-lumen central line in place. No altered mentation. No hypoglycemia. No other complaints otherwise for now. Objective - Vital Signs Vital signs: Vital Signs Temp 98.5 F 05/24/21 04:00 Pulse 107 H 05/24/21 07:00 Resp 13 05/24/21 07:00 BP 134/73 05/24/21 07:00 Pulse Ox 93 L 05/24/21 07:00 Intake & Output 05/23/21 05/24/21 05/24/21 18:59 06:59 18:59 Intake Total 1720 3148.75 170 Output Total 1160 1170 100 Balance 560 1978.75 70 Weight 141.5 kg Intake: IV 1620 2245 170 Meropenem 1 gm In Sodium 100 100 Chloride 0.9% 100 ml @ 33 .3 mls/hr IVPB Q8H [facility] Rx #:[id number] Mvi, Adult No.4 with Vit 770 70 K 10 ml Trace (Conc-1Ml/ Dose) 1 ml Calcium Gluconate 1 gm Sodium Acetate 30 meq In Amino Acids 5 %/Dextrose 20 % 1 ,000 ml @ 75 mls/hr IV . BY DURATION [facility] Rx#: [id number] Mvi, Adult No.4 with Vit 420 75 K 10 ml Trace (Conc-1Ml/ Dose) 1 ml Calcium Gluconate 1 gm Sodium Acetate 30 meq Potassium Phosphate 15 mmol In Amino Acids 5 %/Dextrose 20 % 1,000 ml @ 30 mls/hr IV .Q24H [facility] Rx#: [id number] Sodium Chloride 0.9% 1, 1000 1200 100 000 ml @ 100 mls/hr IV . Q10H [facility] Rx#:[id number] metroNIDAZOLE-NS PMX 500 100 100 mg In Saline 1 100ml.bag @ 100 mls/hr IVPB Q8H [facility] Rx#:[id number] Intake, IV Titration 100 903.75 Amount Calcium Gluconate 1 gm 903.75 Sodium Acetate 30 meq In Amino Acids 5 %/Dextrose 20 % 1,000 ml @ 75 mls/hr IV .BY DURATION [facility] Rx#: [id number] metroNIDAZOLE-NS PMX 500 100 mg In Saline 1 100ml.bag @ 100 mls/hr IVPB Q8H [facility] Rx#:[id number] Output: Drainage 20 20 Left Upper Abdomen 20 20 Urine 790 1150 100 Stool 350 Other: Voiding Method Indwelling Catheter Indwelling Catheter - Exam No acute distress, sedated, currently on the ventilator, with an orally placed endotracheal tube and NG tube. HEENT examination is grossly unremarkable. Neck supple. Full range of motion. No adenopathy thyromegaly or neck vein distention. Cardiovascular examination reveals regular rhythm rate. S1-S2 normal. No S3 or S4. No discernible murmur noted. Lungs reveal bilateral rhonchi. No wheezes or crackles. Breath sounds equal bilaterally. Abdomen soft without bowel sounds. Ileostomy is noted. Extremities are intact. No cyanosis clubbing or edema. Skin is without rash or lesion. Neurologic examination is difficult to assess as the patient is currently sedated. - Labs CBC & Chem 7: 05/24/21 03:52 05/24/21 03:52 Labs: Abnormal Lab Results - Last 24 Hours (Table) 05/23/21 05/23/21 05/23/21 Range/Units 11:04 18:21 23:59 WBC (3.8-10.6) k/uL RBC (4.30-5.90) m/uL Hgb (13.0-17.5) gm/dL Hct (39.0-53.0) % Plt Count (150-450) k/uL Neutrophils # (1.3-7.7) k/uL Chloride (98-107) mmol/L BUN (9-20) mg/dL Glucose (74-99) mg/dL POC Glucose (mg/dL) 131 H 136 H 121 H (75-99) mg/dL Calcium (8.4-10.2) mg/dL C-Reactive Protein (<1.0) mg/dL 05/24/21 05/24/21 05/24/21 Range/Units 03:52 03:52 05:53 WBC 10.8 H (3.8-10.6) k/uL RBC 2.42 L (4.30-5.90) m/uL Hgb 7.3 L (13.0-17.5) gm/dL Hct 23.0 L (39.0-53.0) % Plt Count 769 H (150-450) k/uL Neutrophils # 8.0 H (1.3-7.7) k/uL Chloride 109 H (98-107) mmol/L BUN 33 H (9-20) mg/dL Glucose 145 H (74-99) mg/dL POC Glucose (mg/dL) 151 H (75-99) mg/dL Calcium 8.2 L (8.4-10.2) mg/dL C-Reactive Protein 6.9 H (<1.0) mg/dL Microbiology - Last 24 Hours (Table) 05/19/21 14:09 Blood Culture - Preliminary Blood No Growth after 96 hours Assessment and Plan Plan: 1 Postop day #4, status post exploratory laparotomy, resection of perforated ileocolonic anastomosis and the surgery was done on 05/20/2021, end ileostomy, and abdominal washout. 2 Routine postoperative ventilator management, with successful extubation, on 05/21/2021. 3 Status post laparoscopic appendectomy, 05/07/2021, for gangrenous appendicitis, with subsequent exploratory laparotomy on 05/10/2021, for ileocecal resection with anastomosis 4 complicated gangrenous appendicitis with secondary Intra-abdominal abscess, at the site of the resection, status post insertion of a percutaneous drainage catheter, on 05/19/2021 and the cultures are polymicrobial including yeast, E. coli, gram-negative bacillus, and enterococcus group D 5 History of hypertension. 6 acute leukocytosis, improving 7 acute kidney injury secondary to above, consider ATN, functions stable and improving 8 acute anemia, multifactorial including blood loss anemia secondary to various other abdominal surgeries, Hb is 7.3 9 secondary thrombocytosis related to underlying infection Plan: NG tube in place, output is noted and I would suggest keeping NG tube in place for another 24 hours. We'll continue same antibiotic coverage for now pending further cultures Hemodynamically stable Ileostomy is functional, output is still low Kept on the fluids to KVO and the patient has been in significant positive fluid balance White cell count is also improving Daily dressing and wound change and care May transferred to surgical unit today if surgical team is agreeable. to IS Dilaudid for pain control TPN for nutrition Keep the patient nothing by mouth for now.
[2021-05-24] MEDS: PANTOPRAZOLE 40 MG/10 ML VIAL IVP SCH (08:56)
[2021-05-24] MEDS: ENOXAPARIN 40 MG/0.4 ML SYRINGE SQ SCH (08:57)
[2021-05-24] MEDS: NAPROXEN 250 MG TAB PO SCH ×2 (08:57→22:16)
[2021-05-24] MEDS: lisinopriL 10 MG TAB PO SCH (08:57)
[2021-05-24] MEDS: MONTELUKAST 10 MG TAB PO SCH (08:57)
[2021-05-24] MEDS: FLUCONAZOLE IN NACL,ISO-OSM 200 MG in SALINE 1 100ML.BAG IVPB SCH (08:58)
--- NOTE | 2021-05-24 09:02 | XR ---
EXAMINATION TYPE: XR chest 1V portable DATE OF EXAM: 05/24/2021 COMPARISON: 05/23/2021 HISTORY: Tube placement TECHNIQUE: Single frontal view of the chest is obtained. FINDINGS: NG tube seen extending into the abdomen. Right-sided central line stable. No pneumothorax. Heart size normal. No overt failure. Perihilar subsegmental changes improved. IMPRESSION: No acute process.
[2021-05-24] MEDS: DEXMEDETOMIDINE/0.9% NACL(PMX) 400 MCG in EMPTY BAG 1 BAG IV SCH (10:16)
[2021-05-24 11:58] LABS: Glucose,Whole Blood 152 mg/dL (75-99)
--- NOTE | 2021-05-24 12:29 | P.PN ---
Subjective Progress Note Date: 05/24/21 Principal diagnosis: Status post drainage of abscess, bowel resection, ileostomy creation due to complicated appendicitis The patient is seen on rounds. He's dealing much better today. Less discomfort. He's got to the chair. Doing well with his incentive spirometry, at least 1500 MLS when he uses it. Objective - Vital Signs Vital signs: Vital Signs Temp 98.4 F 05/24/21 12:00 Pulse 112 H 05/24/21 12:00 Resp 16 05/24/21 12:00 BP 154/86 05/24/21 12:00 Pulse Ox 95 05/24/21 12:00 Intake & Output 05/23/21 05/24/21 05/24/21 18:59 06:59 18:59 Intake Total 1720 3148.75 925 Output Total 1160 1170 710 Balance 560 1978.75 215 Weight 141.5 kg Intake: IV 1620 2245 925 Fluconazole in NaCl,Iso- 100 Osm 200 mg In Saline 1 100ml.bag @ 100 mls/hr IVPB DAILY [facility] Rx#: [id number] Meropenem 1 gm In Sodium 100 100 100 Chloride 0.9% 100 ml @ 33 .3 mls/hr IVPB Q8H [facility] Rx #:[id number] Mvi, Adult No.4 with Vit 770 445 K 10 ml Trace (Conc-1Ml/ Dose) 1 ml Calcium Gluconate 1 gm Sodium Acetate 30 meq In Amino Acids 5 %/Dextrose 20 % 1 ,000 ml @ 75 mls/hr IV . BY DURATION [facility] Rx#: [id number] Mvi, Adult No.4 with Vit 420 75 K 10 ml Trace (Conc-1Ml/ Dose) 1 ml Calcium Gluconate 1 gm Sodium Acetate 30 meq Potassium Phosphate 15 mmol In Amino Acids 5 %/Dextrose 20 % 1,000 ml @ 30 mls/hr IV .Q24H [facility] Rx#: [id number] Sodium Chloride 0.9% 1, 1000 1200 180 000 ml @ 20 mls/hr IV . Q24H [facility] Rx#:[id number] metroNIDAZOLE-NS PMX 500 100 100 100 mg In Saline 1 100ml.bag @ 100 mls/hr IVPB Q8H [facility] Rx#:[id number] Intake, IV Titration 100 903.75 Amount Calcium Gluconate 1 gm 903.75 Sodium Acetate 30 meq In Amino Acids 5 %/Dextrose 20 % 1,000 ml @ 75 mls/hr IV .BY DURATION [facility] Rx#: [id number] metroNIDAZOLE-NS PMX 500 100 mg In Saline 1 100ml.bag @ 100 mls/hr IVPB Q8H [facility] Rx#:[id number] Output: Drainage 20 20 Left Upper Abdomen 20 20 Urine 790 1150 710 Stool 350 Other: Voiding Method Indwelling Catheter Indwelling Catheter Indwelling Catheter - Constitutional General appearance: Present: cooperative, no acute distress - Respiratory Respiratory: bilateral: CTA - Cardiovascular Rhythm: regular (Slight tachycardia) - Gastrointestinal General gastrointestinal: Present: absent bowel sounds (There are bowel sounds) Localized gastrointestinal: surgical scar: diffuse (Incisions clean and dry, TRACI is fairly serious, [place] having serosanguineous drainage) - Labs CBC & Chem 7: 05/24/21 03:52 05/24/21 03:52 Labs: Abnormal Lab Results - Last 24 Hours (Table) 05/23/21 05/23/21 05/24/21 Range/Units 18:21 23:59 03:52 WBC (3.8-10.6) k/uL RBC (4.30-5.90) m/uL Hgb (13.0-17.5) gm/dL Hct (39.0-53.0) % Plt Count (150-450) k/uL Neutrophils # (1.3-7.7) k/uL Chloride 109 H (98-107) mmol/L BUN 33 H (9-20) mg/dL Glucose 145 H (74-99) mg/dL POC Glucose (mg/dL) 136 H 121 H (75-99) mg/dL Calcium 8.2 L (8.4-10.2) mg/dL C-Reactive Protein 6.9 H (<1.0) mg/dL 05/24/21 05/24/21 05/24/21 Range/Units 03:52 05:53 11:56 WBC 10.8 H (3.8-10.6) k/uL RBC 2.42 L (4.30-5.90) m/uL Hgb 7.3 L (13.0-17.5) gm/dL Hct 23.0 L (39.0-53.0) % Plt Count 769 H (150-450) k/uL Neutrophils # 8.0 H (1.3-7.7) k/uL Chloride (98-107) mmol/L BUN (9-20) mg/dL Glucose (74-99) mg/dL POC Glucose (mg/dL) 151 H 152 H (75-99) mg/dL Calcium (8.4-10.2) mg/dL C-Reactive Protein (<1.0) mg/dL Microbiology - Last 24 Hours (Table) 05/19/21 14:09 Blood Culture - Preliminary Blood No Growth after 96 hours Assessment and Plan (1) Acute appendicitis Current Visit: Yes Status: Acute Code(s): K35.80 - UNSPECIFIED ACUTE APPENDICITIS SNOMED Code(s): 73626154 (2) Acute gangrenous appendicitis with perforation and peritonitis Current Visit: Yes Status: Acute Code(s): K35.32 - ACUTE APPENDICITIS WITH PERF AND LOC PERITONITIS, W/O ABSCS SNOMED Code(s): 73887735 (3) Small bowel perforation Current Visit: Yes Status: Acute Code(s): K63.1 - PERFORATION OF INTESTINE (NONTRAUMATIC) SNOMED Code(s): 511580132 (4) Acute kidney injury Current Visit: Yes Status: Acute Code(s): N17.9 - ACUTE KIDNEY FAILURE, UNSPECIFIED SNOMED Code(s): 81918876 (5) Anemia Current Visit: Yes Status: Acute Code(s): D64.9 - ANEMIA, UNSPECIFIED SNOMED Code(s): 333078929 Plan: Patient is clinically improved today. No fever. White count was normalizing nicely. Doing well with incentive spirometry. Has a persistent ileus which is expected. On TPN and broad-spectrum antibiotics. is at bedside. Questions were encouraged and answered. We'll monitor the ileostomy and output. Ostomy educator has been in once.
[2021-05-24 14:13] VITALS: BMI 43.4
--- NOTE | 2021-05-24 16:33 | PN ---
PROGRESS NOTE DATE OF SERVICE: 05/24/2021 REASON FOR FOLLOWUP: Intraabdominal abscess. INTERVAL HISTORY: Patient is afebrile. The patient abdominal pain is currently controlled. Denies having any chest pain, shortness of breath or cough. Still has the NG in. No nausea or vomiting. PHYSICAL EXAMINATION: Blood pressure 154/86, pulse of 112, temperature 98.4. He is 95% on room air. General description is a middle-aged male up in the chair in no distress. Respiratory system: Unlabored breathing, clear to auscultation anteriorly. Heart S1, S2. Regular rate and rhythm. Abdomen soft, mildly distended. No guarding. No rigidity. LABS: White count is down to 10.8, creatinine is 1.24. Abdominal cultures with E coli, gram- negative currently pending. DIAGNOSTIC IMPRESSION AND PLAN: Patient with abdominal abscess status post drainage and diverting ileostomy. The patient is covered with Diflucan and meropenem. Antibiotic will be adjusted further based on the culture report. Continue supportive care. MMODL / IJN: [id number] /
[2021-05-24 17:32] LABS: Glucose,Whole Blood 137 mg/dL (75-99)
[2021-05-25 00:11] LABS: Glucose,Whole Blood 138 mg/dL (75-99)
[2021-05-25] MEDS: HYDROmorphone 1 MG/ML 1 ML SYRINGE IVP PRN ×9 (00:47→21:44)
[2021-05-25] MEDS: INSULIN ASPART (NovoLOG) 100 UNIT/ML VIAL SQ SCH ×4 (00:48→18:01)
[2021-05-25] MEDS: MEROPENEM 1 GM in SODIUM CHLORIDE 0.9% 100 ML IVPB SCH ×3 (03:29→17:41)
[2021-05-25] MEDS: metroNIDAZOLE-NS PMX 500 MG in SALINE 1 100ML.BAG IVPB SCH ×4 (05:17→21:43)
[2021-05-25 06:03] LABS: Glucose,Whole Blood 126 mg/dL (75-99)
[2021-05-25] MEDS: FLUCONAZOLE IN NACL,ISO-OSM 200 MG in SALINE 1 100ML.BAG IVPB SCH (08:18)
[2021-05-25 09:52] LABS: African American GFR (CKD) 96.8 (60.0-200.0); BUN/Creat Ratio 27.36 Ratio (12.00-20.00); Blood Urea Nitrogen 30.1 mg/dL (9.0-27.0); Calcium 8.3 mg/dL (8.7-10.3); Non-African American GFR(CKD) 83.5 (60.0-200.0)
[2021-05-25] MEDS: ENOXAPARIN 40 MG/0.4 ML SYRINGE SQ SCH (10:18)
[2021-05-25] MEDS: MONTELUKAST 10 MG TAB PO SCH (10:19)
[2021-05-25] MEDS: NAPROXEN 250 MG TAB PO SCH ×2 (10:20→21:43)
[2021-05-25] MEDS: PANTOPRAZOLE 40 MG/10 ML VIAL IVP SCH (10:40)
[2021-05-25] MEDS: lisinopriL 10 MG TAB PO SCH (10:45)
--- NOTE | 2021-05-25 11:36 | P.PN ---
Subjective Progress Note Date: 05/25/21 This is a 40-year-old male patient was initially seen in the hospital at the emergency department on 05/07/2021 for abdominal pain as a transfer from [facility]. The patient was diagnosed having an acute appendicitis. The patient underwent surgery on 05/07/2021 which involved a laparoscopic benjamin endectomy. The appendix was gangrenous. Subsequently, the patient was taken back to the operating room for another starter laparotomy and the patient underwent an ileocecal resection and subsequent follow-up in the hospital show that the patient developed a large abscess at the area of resection which was approached by interventional radiology with a drain catheter insertion. The CT- guided abdominal drain abscess catheter insertion was done on 05/19/2021 with a total of 200 mL of purulent material was drained and the catheter was kept in place in the right lower quadrant connected to a connection bag and the patient also had a wound VAC in the right lower quadrant abdominal incision was noted some fecal material being trained for that wound VAC system. At that point, the patient also developed a component of an acute kidney injury. He was covered with broad-spectrum antibiotics including combination of IV meropenem, Flagyl and Diflucan. The patient was taken to the operating room again on 04/30/2021 for an acute abdomen and complicated intra-abdominal abscess and exploratory la parotomy was performed and the patient was found to have a ileocolonic perforation. The patient underwent resection of the ileocolonic anastomosis creation of a and ileostomy and abdominal washout. Following that, the patient was brought into the intensive care unit intubated on a mechanical ventilator. The patient was seen again by our services and the patient was extubated. The cultures from the abdominal wound collected on 05/19/2021 showed polymicrobial growth including E. coli, gram-negative bacilli, yeast and enterococcus group D and the blood culture was negative.. On today's evaluation, the patient remains to be extubated. The patient is currently on oxygen at 2 L per minute nasal cannula. Is using incentive spirometer. White cell count is down to 19.3. Cultures were again noted and no new I'll cultures are not available. The patient remains on the same antibiotic coverage. The patient has a TRACI drain in the left lower quadrant and the patient also has a [place] drain within the surgical wound. The ostomy site is functional and there is some brown stool acute bleeding within the collection bag. The patient still has an NG tube in place. Output over the past 12 hours has been in the order of 700 mL of gastric material. Ileostomy is functional as mentioned. Output from the TRACI drain is in the order of 50 mL over the past 12 hours. 05/23/2021, the patient is being seen for a follow-up. He is awake and alert. He is on oxygen at 2 L per minute nasal cannula and the patient has been extubated successfully. NG tube is in place and overnight the patient produced approximately 200 mL of output. His ileostomy site is functional and viable at this point in time. No abdominal distention. The incision is dry clean and intact. The patient has a William drain which is still draining the surgical wound and the dressing changes being done on a regular basis. As for the TRACI drain in his left lower quadrant, the output is in the order of 20 mL and he sees overnight. He is doing well. The blood work is still pending for now. His creatinine is down to 1.4 with a BUN of 40. Note that his white cell, was also improving yesterday. He remains on broad-spectrum antibiotic coverage. The cultures are essentially unchanged and it showed a combination of yeast, E. coli and enterococcus group D and for that reason, the patient is still covered with broad-spectrum antibiotics including a combination of mental plan, Diflucan, and Flagyl. He is receiving Diflucan at a dose of 200 mg IV every 24 hours. IV fluids are running at 100 mL of normal saline and the patient was also started on TPN for nutritional support. He was kept nothing by mouth since his surgery. The patient has a right IJ double-lumen catheter in place. No fever. No altered mentation. No cardiac arrhythmias. No chest pain. No hypoglycemia. He remains on Lovenox for DVT prophylaxis. 05/24/2021 patient is doing well. The patient has no specific complaints. His NG tube is still in place and output has been in the order of 100 mL over the past 12 hours. Ileostomy is functional. Output from the ileostomy has been also liquidy and in smaller amounts. The patient has sluggish bowel sounds for now. Surgical wound site is dry clean and intact. TRACI drain has been draining minimal amount of output. [place] tube is also present in the surgical wound site. The patient feels better. He was able to sit up on a recliner. He is on room air oxygen. His white cell count is also improving and his white cell count is down to 10. The patient is also on broad-spectrum antibiotics and no new cultures are available. He is receiving TPN for nutritional support. The fluid balance is +2.5 L over the past 24 hours and I would suggest cutting down the normal saline to KVO and keeping the patient only on TPN for now. He has a right IJ double-lumen central line in place. No altered mentation. No hypoglycemia. No other complaints otherwise for now. 05/25/2021, the patient is transferred out of the intensive care unit and currently is on a medical floor. He is recovering from his abdominal surgeries. As mentioned earlier, he had a complicated appendicitis requiring extensive surgery and it for now the patient has a diverticular ileostomy with resection of the previously constructed ileocolonic anastomosis.. The patient is afebrile. The patient's white cell count Improving and the patient's was receiving broad-spectrum antibiotics due to polymicrobial infection of the abdomen related to abdominal abscess. He was also started on TPN for nutritional support. He has a right IJ triple-lumen catheter in place. NG tube output is minimal at this point in time. The patient also has active bowel sounds. Possibility NG tube can be removed today. Surgical wound site is clear. Ileostomy is functional. Remains on broad-spectrum antibiotics for now. Objective - Vital Signs Vital signs: Vital Signs Temp 98.1 F 05/25/21 07:24 Pulse 108 H 05/25/21 07:24 Resp 14 05/25/21 07:24 BP 155/84 05/25/21 07:24 Pulse Ox 95 05/25/21 07:24 Intake & Output 05/24/21 05/25/21 05/25/21 18:59 06:59 18:59 Intake Total 1505 440 Output Total 1570 1250 Balance -65 -810 Weight 141.5 kg Intake: IV 1505 440 Fluconazole in NaCl,Iso- 100 Osm 200 mg In Saline 1 100ml.bag @ 100 mls/hr IVPB DAILY [facility] Rx#: [id number] Meropenem 1 gm In Sodium 200 100 Chloride 0.9% 100 ml @ 33 .3 mls/hr IVPB Q8H [facility] Rx #:[id number] Mvi, Adult No.4 with Vit 745 K 10 ml Trace (Conc-1Ml/ Dose) 1 ml Calcium Gluconate 1 gm Sodium Acetate 30 meq In Amino Acids 5 %/Dextrose 20 % 1 ,000 ml @ 75 mls/hr IV . BY DURATION [facility] Rx#: [id number] Sodium Chloride 0.9% 1, 260 240 000 ml @ 20 mls/hr IV . Q24H [facility] Rx#:[id number] metroNIDAZOLE-NS PMX 500 200 100 mg In Saline 1 100ml.bag @ 100 mls/hr IVPB Q8H [facility] Rx#:[id number] Output: Gastric Drainage 0 Drainage 140 250 Left Upper Abdomen 0 ileostomy 140 250 Urine 1430 1000 Other: Voiding Method Indwelling Catheter Indwelling Catheter Indwelling Catheter - Exam No acute distress, sedated, currently on the ventilator, with an orally placed endotracheal tube and NG tube. HEENT examination is grossly unremarkable. Neck supple. Full range of motion. No adenopathy thyromegaly or neck vein distention. Cardiovascular examination reveals regular rhythm rate. S1-S2 normal. No S3 or S4. No discernible murmur noted. Lungs reveal bilateral rhonchi. No wheezes or crackles. Breath sounds equal bilaterally. Abdomen soft without bowel sounds. Ileostomy is noted. Extremities are intact. No cyanosis clubbing or edema. Skin is without rash or lesion. Neurologic examination is difficult to assess as the patient is currently sedated. - Labs CBC & Chem 7: 05/24/21 03:52 05/25/21 04:39 Labs: Abnormal Lab Results - Last 24 Hours (Table) 05/24/21 05/24/21 05/25/21 Range/Units 11:56 17:31 00:10 BUN (9.0-27.0) mg/dL BUN/Creatinine Ratio (12.00-20.00) Ratio POC Glucose (mg/dL) 152 H 137 H 138 H (75-99) mg/dL Calcium (8.7-10.3) mg/dL 05/25/21 05/25/21 Range/Units 04:39 06:01 BUN 30.1 H (9.0-27.0) mg/dL BUN/Creatinine Ratio 27.36 H (12.00-20.00) Ratio POC Glucose (mg/dL) 126 H (75-99) mg/dL Calcium 8.3 L (8.7-10.3) mg/dL Microbiology - Last 24 Hours (Table) 05/19/21 14:09 Blood Culture - Preliminary Blood No Growth after 120 hours Assessment and Plan Plan: 1 Postop day #5, status post exploratory laparotomy, resection of perforated ileocolonic anastomosis and the surgery was done on 05/20/2021, end ileostomy, and abdominal washout. 2 Routine postoperative ventilator management, with successful extubation, on 05/21/2021. 3 Status post laparoscopic appendectomy, 05/07/2021, for gangrenous appendicitis, with subsequent exploratory laparotomy on 05/10/2021, for ileocecal resection with anastomosis 4 complicated gangrenous appendicitis with secondary Intra-abdominal abscess, at the site of the resection, status post insertion of a percutaneous drainage cath eter, on 05/19/2021 and the cultures are polymicrobial including yeast, E. coli, gram-negative bacillus, and enterococcus group D 5 History of hypertension. 6 acute leukocytosis, improving 7 acute kidney injury secondary to above, consider ATN, functions stable and improving 8 acute anemia, multifactorial including blood loss anemia secondary to various other abdominal surgeries, Hb is 7.3 9 secondary thrombocytosis related to underlying infection Plan: NG tube in place, consider taking out the NG tube and output is minimal at this point in time. We'll continue same antibiotic coverage for now pending further cultures Hemodynamically stable Ileostomy is functional, output is still low Kept on the fluids to KVO and the patient has been in significant positive fluid balance White cell count is also improving Daily dressing and wound change and care Dilaudid for pain control TPN for nutrition Clinically stable, the patient will be kept on a medical surgical floor. ICU services we'll sign off and will be glad to consult back should there be any need for any pulmonary or critical care issues.
[2021-05-25 12:12] LABS: Magnesium 1.9 mg/dL (1.5-2.4); Phosphorus 3.5 mg/dL (2.4-5.1)
[2021-05-25 12:30] LABS: Glucose,Whole Blood 112 mg/dL (75-99)
--- NOTE | 2021-05-25 12:42 | P.PN ---
Subjective Progress Note Date: 05/25/21 Principal diagnosis: Status post drainage of abscess, bowel resection, ileostomy creation due to complicated appendicitis The patient is seen on rounds. He's doing well. Pain is under better control. No chest pain or shortness of breath. Objective - Vital Signs Vital signs: Vital Signs Temp 98.1 F 05/25/21 07:24 Pulse 108 H 05/25/21 07:24 Resp 14 05/25/21 07:24 BP 155/84 05/25/21 07:24 Pulse Ox 95 05/25/21 07:24 Intake & Output 05/24/21 05/25/21 05/25/21 18:59 06:59 18:59 Intake Total 1505 440 Output Total 1570 1250 Balance -65 -810 Weight 141.5 kg Intake: IV 1505 440 Fluconazole in NaCl,Iso- 100 Osm 200 mg In Saline 1 100ml.bag @ 100 mls/hr IVPB DAILY [facility] Rx#: [id number] Meropenem 1 gm In Sodium 200 100 Chloride 0.9% 100 ml @ 33 .3 mls/hr IVPB Q8H [facility] Rx #:[id number] Mvi, Adult No.4 with Vit 745 K 10 ml Trace (Conc-1Ml/ Dose) 1 ml Calcium Gluconate 1 gm Sodium Acetate 30 meq In Amino Acids 5 %/Dextrose 20 % 1 ,000 ml @ 75 mls/hr IV . BY DURATION [facility] Rx#: [id number] Sodium Chloride 0.9% 1, 260 240 000 ml @ 20 mls/hr IV . Q24H [facility] Rx#:[id number] metroNIDAZOLE-NS PMX 500 200 100 mg In Saline 1 100ml.bag @ 100 mls/hr IVPB Q8H [facility] Rx#:[id number] Output: Gastric Drainage 0 Drainage 140 250 Left Upper Abdomen 0 ileostomy 140 250 Urine 1430 1000 Other: Voiding Method Indwelling Catheter Indwelling Catheter Indwelling Catheter - Constitutional General appearance: Present: no acute distress - Respiratory Respiratory: bilateral: CTA - Cardiovascular Rhythm: regular - Gastrointestinal General gastrointestinal: Present: decreased bowel sounds, soft Localized gastrointestinal: surgical scar: diffuse (Incisions clean and dry. A little drainage from the kathi in the midline incision. Some drainage from the [place] drain in the right lower quadrant incision) - Labs CBC & Chem 7: 05/24/21 03:52 05/25/21 04:39 Labs: Abnormal Lab Results - Last 24 Hours (Table) 05/24/21 05/25/21 05/25/21 Range/Units 17:31 00:10 04:39 BUN 30.1 H (9.0-27.0) mg/dL BUN/Creatinine Ratio 27.36 H (12.00-20.00) Ratio POC Glucose (mg/dL) 137 H 138 H (75-99) mg/dL Calcium 8.3 L (8.7-10.3) mg/dL 05/25/21 05/25/21 Range/Units 06:01 12:28 BUN (9.0-27.0) mg/dL BUN/Creatinine Ratio (12.00-20.00) Ratio POC Glucose (mg/dL) 126 H 112 H (75-99) mg/dL Calcium (8.7-10.3) mg/dL Microbiology - Last 24 Hours (Table) 05/19/21 14:09 Blood Culture - Preliminary Blood No Growth after 120 hours Assessment and Plan (1) Acute appendicitis Current Visit: Yes Status: Acute Code(s): K35.80 - UNSPECIFIED ACUTE APPENDICITIS SNOMED Code(s): 06377448 (2) Acute gangrenous appendicitis with perforation and peritonitis Current Visit: Yes Status: Acute Code(s): K35.32 - ACUTE APPENDICITIS WITH PERF AND LOC PERITONITIS, W/O ABSCS SNOMED Code(s): 27470188 (3) Small bowel perforation Current Visit: Yes Status: Acute Code(s): K63.1 - PERFORATION OF INTESTINE (NONTRAUMATIC) SNOMED Code(s): 840625951 (4) Acute kidney injury Current Visit: Yes Status: Acute Code(s): N17.9 - ACUTE KIDNEY FAILURE, UN SPECIFIED SNOMED Code(s): 84654097 (5) Anemia Current Visit: Yes Status: Acute Code(s): D64.9 - ANEMIA, UNSPECIFIED SNOMED Code(s): 361490284 Plan: Patient is clinically improving. Antibiotics have been adjusted according to culture. NG tube will be clamped. If he is able to tolerate that, it will be removed later today. Continue incentive spirometry. Encourage activity. Progressing slowly.
--- NOTE | 2021-05-25 16:33 | PN ---
PROGRESS NOTE DATE OF SERVICE: 05/25/2021 REASON FOR FOLLOWUP: Intraabdominal abscess. INTERVAL HISTORY: The patient is afebrile. The patient is currently breathing comfortably. The patient denies having any chest pain, shortness of breath or cough. Abdominal pain is currently controlled. No vomiting. Did have output in his ileostomy. PHYSICAL EXAMINATION: Blood pressure 158/93 with a pulse of 103, temperature 98.4. He is 95% on room air, General description is a middle-aged male lying in bed in no distress. Respiratory system: Unlabored breathing, clear to auscultation anteriorly. Heart S1, S2. Regular rate and rhythm. Abdomen soft; remains distended. No guarding or rigidity. LABS: Abdominal culture has not been finalized. Creatinine 1.19. DIAGNOSTIC IMPRESSION AND PLAN: Patient with abdominal abscess with multiple pathogens, status post diverting ileostomy. Culture with multiple pathogens has not been finalized. Patient to continue meropenem and Diflucan. will be continued. Will finalize those cultures so we can narrow down his antibiotics. Continue with supportive care. Family at the bedside. Questions were answered. MMODL / IJN: [id number] /
[2021-05-25 17:48] LABS: Glucose,Whole Blood 138 mg/dL (75-99)
[2021-05-25] MEDS: SODIUM CHLORIDE 0.9% 1,000 ML IV SCH (21:56)
[2021-05-26 00:28] LABS: Glucose,Whole Blood 91 mg/dL (75-99)
[2021-05-26] MEDS: HYDROmorphone 1 MG/ML 1 ML SYRINGE IVP PRN ×8 (00:36→22:29)
[2021-05-26] MEDS: MEROPENEM 1 GM in SODIUM CHLORIDE 0.9% 100 ML IVPB SCH ×3 (01:20→16:53)
[2021-05-26] MEDS: INSULIN ASPART (NovoLOG) 100 UNIT/ML VIAL SQ SCH ×4 (02:27→18:40)
[2021-05-26 05:48] LABS: Glucose,Whole Blood 97 mg/dL (75-99)
[2021-05-26] MEDS: metroNIDAZOLE-NS PMX 500 MG in SALINE 1 100ML.BAG IVPB SCH ×3 (06:09→21:05)
[2021-05-26 06:37] LABS: HCT 22.1 % (39.0-53.0); HGB 7.1 gm/dL (13.0-17.5); MCH 29.6 pg (25.0-35.0); MCV 92.6 fL (80.0-100.0); Mean Platelet Volume 7.5; Platelet Count 724 k/uL (150-450); RBC 2.39 m/uL (4.30-5.90); RDW 12.8 % (11.5-15.5); WBC 10.3 k/uL (3.8-10.6)
[2021-05-26 06:59] LABS: Magnesium 1.9 mg/dL (1.6-2.3); Phosphorus 4.1 mg/dL (2.5-4.5)
[2021-05-26 07:00] LABS: African American GFR (CKD) >90 (>60 ml/min/1.73 sqM); Anion Gap 5 mmol/L; Blood Urea Nitrogen 31 mg/dL (9-20); Calcium 8.3 mg/dL (8.4-10.2); Carbon Dioxide 28 mmol/L (22-30); Chloride 105 mmol/L (98-107); Glucose 89 mg/dL (74-99); Non-African American GFR(CKD) 81 (>60 ml/min/1.73 sqM); Potassium 4.7 mmol/L (3.5-5.1); Sodium 138 mmol/L (137-145)
[2021-05-26] MEDS: 1: MVI, ADULT NO.4 WITH VIT K 10 ML, TRACE (CONC-1ML/DOSE) 1 ML, CALCIUM GLUCONATE 1 GM, IV SCH ×15 (07:22→15:02)
[2021-05-26] MEDS: FLUCONAZOLE IN NACL,ISO-OSM 200 MG in SALINE 1 100ML.BAG IVPB SCH (07:53)
[2021-05-26] MEDS: HYDROcodone/APAP 5-325MG 1 EACH TAB PO PRN (07:53)
[2021-05-26] MEDS: MONTELUKAST 10 MG TAB PO SCH (07:54)
[2021-05-26] MEDS: lisinopriL 10 MG TAB PO SCH (07:54)
[2021-05-26] MEDS: NAPROXEN 250 MG TAB PO SCH ×2 (07:54→19:45)
[2021-05-26] MEDS: PANTOPRAZOLE 40 MG/10 ML VIAL IVP SCH (07:55)
[2021-05-26] MEDS: ENOXAPARIN 40 MG/0.4 ML SYRINGE SQ SCH (09:03)
--- NOTE | 2021-05-26 13:06 | P.PN ---
Subjective Progress Note Date: 05/26/21 Principal diagnosis: Status post drainage of abscess, bowel resection, ileostomy creation due to complicated appendicitis The patient was seen on rounds. He and his were able to change his ostomy appliance this morning. NG tube is been removed. He is tolerating clear liqu ids. No nausea or heartburn. He would like to shower. Objective - Vital Signs Vital signs: Vital Signs Temp 98.3 F 05/26/21 07:57 Pulse 95 05/26/21 07:57 Resp 14 05/26/21 07:57 BP 144/84 05/26/21 07:57 Pulse Ox 96 05/26/21 07:57 Intake & Output 05/25/21 05/26/21 05/26/21 18:59 06:59 18:59 Intake Total 590 100 Output Total 10 700 1805 Balance -10 -110 -1705 Weight 141.5 kg Intake: Oral 590 100 Output: Drainage 10 Left Upper Abdomen 10 Urine 700 580 Stool 1225 Other: Voiding Method Indwelling Catheter Urinal - Constitutional General appearance: Present: cooperative, no acute distress - Respiratory Respiratory: bilateral: CTA - Cardiovascular Rhythm: regular - Gastrointestinal General gastrointestinal: Present: decreased bowel sounds, soft Localized gastrointestinal: surgical scar: diffuse (Incisions are intact, clean and dry. The TRACI is serosanguineous. Serosanguineous drainage from the [place] drain. Ileostomy is pink and viable) - Labs CBC & Chem 7: 05/26/21 05:38 05/26/21 05:38 Labs: Abnormal Lab Results - Last 24 Hours (Table) 05/25/21 05/26/21 05/26/21 Range/Units 17:47 05:38 05:38 RBC 2.39 L (4.30-5.90) m/uL Hgb 7.1 L (13.0-17.5) gm/dL Hct 22.1 L (39.0-53.0) % Plt Count 724 H (150-450) k/uL BUN 31 H (9-20) mg/dL POC Glucose (mg/dL) 138 H (75-99) mg/dL Calcium 8.3 L (8.4-10.2) mg/dL Microbiology - Last 24 Hours (Table) 05/19/21 14:09 Blood Culture - Final Blood No Growth after 144 hours Assessment and Plan (1) Acute appendicitis Current Visit: Yes Status: Acute Code(s): K35.80 - UNSPECIFIED ACUTE APPENDICITIS SNOMED Code(s): 53825647 (2) Acute gangrenous appendicitis with perforation and peritonitis Current Visit: Yes Status: Acute Code(s): K35.32 - ACUTE APPENDICITIS WITH PERF AND LOC PERITONITIS, W/O ABSCS SNOMED Code(s): 78314107 (3) Small bowel perforation Current Visit: Yes Status: Acute Code(s): K63.1 - PERFORATION OF INTESTINE (NONTRAUMATIC) SNOMED Code(s): 212747946 (4) Acute kidney injury Current Visit: Yes Status: Acute Code(s): N17.9 - ACUTE KIDNEY FAILURE, UNSPECIFIED SNOMED Code(s): 99829157 (5) Anemia Current Visit: Yes Status: Acute Code(s): D64.9 - ANEMIA, UNSPECIFIED SNOMED Code(s): 101016488 Plan: Diet will be slowly advanced. Will need to monitor closely for high ileostomy output and issues with ostomy adherence. Questions were encouraged and answered. Progressing slowly. Another ostomy education session is scheduled for Saturday
[2021-05-26 13:19] LABS: Glucose,Whole Blood 120 mg/dL (75-99)
[2021-05-26] MEDS: SODIUM CHLORIDE 0.9% 1,000 ML IV SCH (16:48)
--- NOTE | 2021-05-26 18:00 | PN ---
PROGRESS NOTE DATE OF SERVICE: 05/26/2021 REASON FOR FOLLOWUP: Intraabdominal abscess. INTERVAL HISTORY: The patient is afebrile. The patient is breathing comfortably. The patient denies having any chest pain or shortness of breath or cough. Abdominal pain is currently controlled. Tolerating his diet. No vomiting or diarrhea. PHYSICAL EXAMINATION: Blood pressure 129/69 with pulse 75, temperature 98.5. He is 96% on room air. General description is a middle-aged male up in the bed in no distress. Respiratory system: Unlabored breathing, clear to auscultation anteriorly. Heart S1, S2. Regular rate and rhythm. Abdomen soft, no tenderness. LABS: Hemoglobin is , white count 10.3, creatinine 1.14. DIAGNOSTIC IMPRESSION AND PLAN: Patient with abdominal abscess, perforated appendicitis, in this patient status post diverting ileostomy. The patient is currently covered with meropenem and Diflucan, as we are still waiting for sensitivity and identification of the Gram-negative in the abdominal cultures. Continue with supportive care. MMODL / IJN: [id number] /
[2021-05-26 18:10] LABS: Glucose,Whole Blood 115 mg/dL (75-99)
[2021-05-27 00:02] LABS: Glucose,Whole Blood 120 mg/dL (75-99)
[2021-05-27] MEDS: INSULIN ASPART (NovoLOG) 100 UNIT/ML VIAL SQ SCH ×4 (00:49→17:26)
[2021-05-27] MEDS: HYDROmorphone 1 MG/ML 1 ML SYRINGE IVP PRN ×8 (01:20→20:26)
[2021-05-27] MEDS: MEROPENEM 1 GM in SODIUM CHLORIDE 0.9% 100 ML IVPB SCH ×2 (01:20→23:54)
[2021-05-27] MEDS: metroNIDAZOLE-NS PMX 500 MG in SALINE 1 100ML.BAG IVPB SCH ×3 (05:19→21:15)
[2021-05-27 06:01] LABS: Glucose,Whole Blood 132 mg/dL (75-99)
[2021-05-27 08:29] LABS: Ionized Calcium 4.9 mg/dL (4.5-5.3)
[2021-05-27] MEDS: HYDROcodone/APAP 5-325MG 1 EACH TAB PO PRN ×3 (08:35→23:54)
[2021-05-27 08:38] LABS: African American GFR (CKD) >90 (>60 ml/min/1.73 sqM); Anion Gap 3 mmol/L; Blood Urea Nitrogen 28 mg/dL (9-20); Carbon Dioxide 31 mmol/L (22-30); Chloride 100 mmol/L (98-107); Glucose 120 mg/dL (74-99); Magnesium 1.8 mg/dL (1.6-2.3); Non-African American GFR(CKD) 82 (>60 ml/min/1.73 sqM); Potassium 4.3 mmol/L (3.5-5.1); Sodium 134 mmol/L (137-145)
[2021-05-27] MEDS: NAPROXEN 250 MG TAB PO SCH ×3 (08:45→20:26)
[2021-05-27] MEDS: MONTELUKAST 10 MG TAB PO SCH (08:45)
[2021-05-27] MEDS: FLUCONAZOLE IN NACL,ISO-OSM 200 MG in SALINE 1 100ML.BAG IVPB SCH (08:46)
[2021-05-27] MEDS: lisinopriL 10 MG TAB PO SCH (08:46)
[2021-05-27] MEDS: ENOXAPARIN 40 MG/0.4 ML SYRINGE SQ SCH (08:46)
[2021-05-27] MEDS: PANTOPRAZOLE 40 MG/10 ML VIAL IVP SCH (09:06)
--- NOTE | 2021-05-27 10:04 | P.PN ---
Subjective Progress Note Date: 05/27/21 Principal diagnosis: Status post drainage of abscess, bowel resection, ileostomy creation due to complicated appendicitis The patient is seen on rounds. He is started oral pain medication but still using some Dilaudid. He is feeling some gas come out his ileostomy. Patient had insure along with his meds this morning got a little nauseated. No vomiting. Overall was feeling better Objective - Vital Signs Vital signs: Vital Signs Temp 97.5 F L 05/27/21 04:51 Pulse 90 05/27/21 04:51 Resp 18 05/27/21 04:51 BP 156/78 05/27/21 04:51 Pulse Ox 97 05/27/21 04:51 Intake & Output 05/26/21 05/27/21 05/27/21 18:59 06:59 18:59 Intake Total 740 800 Output Total 2790 1100 Balance -2049 -300 Weight 141.5 kg Intake: IV 640 800 Fluconazole in NaCl,Iso- 200 Osm 200 mg In Saline 1 100ml.bag @ 100 mls/hr IVPB DAILY [facility] Rx#: [id number] Meropenem 1 gm In Sodium 200 100 Chloride 0.9% 100 ml @ 33 .3 mls/hr IVPB Q8H [facility] Rx #:[id number] Mvi, Adult No.4 with Vit 360 K 10 ml Trace (Conc-1Ml/ Dose) 1 ml Calcium Gluconate 1 gm Sodium Acetate 30 meq In Amino Acids 5 %/Dextrose 20 % 1 ,000 ml @ 75 mls/hr IV . BY DURATION [facility] Rx#: [id number] Sodium Chloride 0.9% 1, 240 240 000 ml @ 20 mls/hr IV . Q24H [facility] Rx#:[id number] metroNIDAZOLE-NS PMX 500 100 mg In Saline 1 100ml.bag @ 100 mls/hr IVPB Q8H [facility] Rx#:[id number] Oral 100 Output: Drainage 260 Left Upper Abdomen 10 ileostomy 250 Urine 580 500 Stool 1950 600 Other: Voiding Method Urinal # Voids 3 2 - Constitutional General appearance: Present: cooperative, no acute distress - Gastrointestinal General gastrointestinal: Present: soft. Absent: distended Localized gastrointestinal: surgical scar: diffuse (Ileostomy is pink and viable with some bilious fluid and air. Scant amount of serosanguineous drainage in the TRACI bulb. There is some serosanguineous drainage from the [place] drain in the lower quadrant) - Labs CBC & Chem 7: 05/26/21 05:38 05/27/21 07:02 Labs: Abnormal Lab Results - Last 24 Hours (Table) 05/26/21 05/26/21 05/27/21 Range/Units 13:11 18:05 00:01 Sodium (137-145) mmol/L Carbon Dioxide (22-30) mmol/L BUN (9-20) mg/dL Glucose (74-99) mg/dL POC Glucose (mg/dL) 120 H 115 H 120 H (75-99) mg/dL Calcium (8.4-10.2) mg/dL 05/27/21 05/27/21 Range/Units 06:00 07:02 Sodium 134 L (137-145) mmol/L Carbon Dioxide 31 H (22-30) mmol/L BUN 28 H (9-20) mg/dL Glucose 120 H (74-99) mg/dL POC Glucose (mg/dL) 132 H (75-99) mg/dL Calcium 8.0 L (8.4-10.2) mg/dL Assessment and Plan (1) Acute appendicitis Current Visit: Yes Status: Acute Code(s): K35.80 - UNSPECIFIED ACUTE APPENDICITIS SNOMED Code(s): 24404909 (2) Acute gangrenous appendicitis with perforation and peritonitis Current Visit: Yes Status: Acute Code(s): K35.32 - ACUTE APPENDICITIS WITH PERF AND LOC PERITONITIS, W/O ABSCS SNOMED Code(s): 00730955 (3) Small bowel perforation Current Visit: Yes Status: Acute Code(s): K63.1 - PERFORATION OF INTESTINE (NONTRAUMATIC) SNOMED Code(s): 589258817 (4) Acute kidney injury Current Visit: Yes Status: Acute Code(s): N17.9 - ACUTE KIDNEY FAILURE, UNSPECIFIED SNOMED Code(s): 90337392 (5) Anemia Current Visit: Yes Status: Acute Code(s): D64.9 - ANEMIA, UNSPECIFIED SNOMED Code(s): 042350733 Plan: We'll discontinue the TRACI drain. Slowly increase diet as tolerated. Increase activity. Continue incentive spirometry. Progressing slowly. Ileostomy output and consistency.
[2021-05-27 12:00] LABS: Glucose,Whole Blood 123 mg/dL (75-99)
[2021-05-27 17:20] LABS: Glucose,Whole Blood 132 mg/dL (75-99)
[2021-05-27] MEDS: 1: MVI, ADULT NO.4 WITH VIT K 10 ML, TRACE (CONC-1ML/DOSE) 1 ML, CALCIUM GLUCONATE 1 GM, IV SCH ×5 (17:26)
[2021-05-27] MEDS: SODIUM CHLORIDE 0.9% 1,000 ML IV SCH (22:01)
--- NOTE | 2021-05-27 22:56 | PN ---
PROGRESS NOTE DATE OF SERVICE: 05/27/2021 REASON FOR FOLLOWUP: Abdominal abscess. INTERVAL HISTORY: The patient is afebrile. The patient is currently breathing comfortably. The patient denies having any chest pain or shortness of breath or cough. Abdominal pain is currently controlled. No vomiting or diarrhea. PHYSICAL EXAMINATION: Blood pressure 151/84, pulse of 96, temperature 98.5. He is 98% on room air. General description is a middle-aged male up in the chair in no distress. Respiratory system: Unlabored breathing. Clear to auscultation anteriorly. Heart S1, S2. Regular rate and rhythm. Abdomen soft, no tenderness. LABS: No new labs have been obtained today. DIAGNOSTIC IMPRESSION AND PLAN: Patient with abdominal abscess from a perforation, status post drainage of the abscess and diverting ileostomy. Abdominal culture has not been finalized by the micro lab. ID and sensitivity of pathogen still pending. Patient is covered with Diflucan; plan to continue while waiting for the final ID and sensitivity of this pathogen. Continue supportive care. MMODL / IJN: [id number] /
[2021-05-28 00:24] LABS: Glucose,Whole Blood 105 mg/dL (75-99)
[2021-05-28] MEDS: INSULIN ASPART (NovoLOG) 100 UNIT/ML VIAL SQ SCH ×3 (00:31→12:23)
[2021-05-28] MEDS: HYDROmorphone 1 MG/ML 1 ML SYRINGE IVP PRN (05:02)
[2021-05-28 05:50] LABS: Glucose,Whole Blood 95 mg/dL (75-99)
[2021-05-28 06:57] LABS: Basophils % (A) 0 %; Eosinophils # (A) 0.4 k/uL (0-0.7); Eosinophils % (A) 3 %; HCT 22.6 % (39.0-53.0); HGB 7.3 gm/dL (13.0-17.5); Lymphocytes # (A) 1.2 k/uL (1.0-4.8); Lymphocytes % (A) 10 %; MCH 29.8 pg (25.0-35.0); MCHC 32.1 g/dL (31.0-37.0); Mean Platelet Volume 6.8; Monocytes # (A) 0.6 k/uL (0-1.0); Monocytes % (A) 5 %; Neutrophils # (A) 9.6 k/uL (1.3-7.7); Neutrophils % (A) 80 %; Platelet Count 666 k/uL (150-450); RBC 2.44 m/uL (4.30-5.90); RDW 13.3 % (11.5-15.5); WBC 12.1 k/uL (3.8-10.6)
[2021-05-28 07:12] LABS: African American GFR (CKD) >90 (>60 ml/min/1.73 sqM); Anion Gap 3 mmol/L; Blood Urea Nitrogen 22 mg/dL (9-20); Calcium 8.2 mg/dL (8.4-10.2); Carbon Dioxide 32 mmol/L (22-30); Chloride 100 mmol/L (98-107); Glucose 96 mg/dL (74-99); Magnesium 1.8 mg/dL (1.6-2.3); Non-African American GFR(CKD) 81 (>60 ml/min/1.73 sqM); Phosphorus 3.9 mg/dL (2.5-4.5); Potassium 4.3 mmol/L (3.5-5.1); Sodium 135 mmol/L (137-145)
[2021-05-28 07:46] LABS: C Reactive Protein 4.6 mg/dL (<1.0)
[2021-05-28] MEDS: HYDROcodone/APAP 5-325MG 1 EACH TAB PO PRN ×3 (08:30→20:55)
[2021-05-28] MEDS: ENOXAPARIN 40 MG/0.4 ML SYRINGE SQ SCH (08:33)
[2021-05-28] MEDS: NAPROXEN 250 MG TAB PO SCH ×2 (08:33→20:52)
[2021-05-28] MEDS: lisinopriL 10 MG TAB PO SCH (08:33)
[2021-05-28] MEDS: MEROPENEM 1 GM in SODIUM CHLORIDE 0.9% 100 ML IVPB SCH ×3 (08:33→23:45)
[2021-05-28] MEDS: PANTOPRAZOLE 40 MG/10 ML VIAL IVP SCH (08:34)
[2021-05-28] MEDS: MONTELUKAST 10 MG TAB PO SCH (08:34)
[2021-05-28] MEDS: FLUCONAZOLE IN NACL,ISO-OSM 200 MG in SALINE 1 100ML.BAG IVPB SCH (08:38)
--- NOTE | 2021-05-28 12:53 | P.PN ---
Subjective Progress Note Date: 05/28/21 Principal diagnosis: Status post drainage of abscess, bowel resection, ileostomy creation due to complicated appendicitis The patient is seen on rounds. He's feeling well. Denies any nausea today. Pain is controlled with oral pain medications. The William drain was accidental ly dislodged this morning. The patient has been doing his ileostomy care. Objective - Vital Signs Vital signs: Vital Signs Temp 97.8 F 05/28/21 05:00 Pulse 77 05/28/21 08:10 Resp 16 05/28/21 08:10 BP 143/80 05/28/21 05:00 Pulse Ox 99 05/28/21 05:00 Intake & Output 05/27/21 05/28/21 05/28/21 18:59 06:59 18:59 Intake Total 240 Output Total 3603 413 0022 Balance -1720 -300 -1650 Intake: Oral 240 Output: Drainage 260 250 Left Upper Abdomen 10 0 ileostomy 250 250 Urine 1000 300 600 Stool 700 800 Other: Voiding Method Urinal Urinal # Voids 3 4 5 # Bowel Movements 500 - Constitutional General appearance: Present: cooperative, no acute distress - Gastrointestinal General gastrointestinal: Present: normal bowel sounds, soft Localized gastrointestinal: surgical scar: diffuse (Incision with some serous drainage through the gauze kathi. No cellulitis. No purulent drainage. Ileostomy pink and viable. Watery output) - Labs CBC & Chem 7: 05/28/21 06:29 05/28/21 06:29 Labs: Abnormal Lab Results - Last 24 Hours (Table) 05/27/21 05/28/21 05/28/21 Range/Units 17:17 00:23 06:29 WBC (3.8-10.6) k/uL RBC (4.30-5.90) m/uL Hgb (13.0-17.5) gm/dL Hct (39.0-53.0) % Plt Count (150-450) k/uL Neutrophils # (1.3-7.7) k/uL Sodium 135 L (137-145) mmol/L Carbon Dioxide 32 H (22-30) mmol/L BUN 22 H (9-20) mg/dL POC Glucose (mg/dL) 132 H 105 H (75-99) mg/dL Calcium 8.2 L (8.4-10.2) mg/dL C-Reactive Protein 4.6 H (<1.0) mg/dL Triglycerides 168.00 H (0.00-149.00) mg/dL 05/28/21 Range/Units 06:29 WBC 12.1 H (3.8-10.6) k/uL RBC 2.44 L (4.30-5.90) m/uL Hgb 7.3 L (13.0-17.5) gm/dL Hct 22.6 L (39.0-53.0) % Plt Count 666 H (150-450) k/uL Neutrophils # 9.6 H (1.3-7.7) k/uL Sodium (137-145) mmol/L Carbon Dioxide (22-30) mmol/L BUN (9-20) mg/dL POC Glucose (mg/dL) (75-99) mg/dL Calcium (8.4-10.2) mg/dL C-Reactive Protein (<1.0) mg/dL Triglycerides (0.00-149.00) mg/dL Assessment and Plan (1) Acute appendicitis Current Visit: Yes Status: Acute Code(s): K35.80 - UNSPECIFIED ACUTE APPENDICITIS SNOMED Code(s): 91701724 (2) Acute gangrenous appendicitis with perforation and peritonitis Current Visit: Yes Status: Acute Code(s): K35.32 - ACUTE APPENDICITIS WITH PERF AND LOC PERITONITIS, W/O ABSCS SNOMED Code(s): 09692302 (3) Small bowel perforation Current Visit: Yes Status: Acute Code(s): K63.1 - PERFORATION OF INTESTINE (NONTRAUMATIC) SNOMED Code(s): 437565268 (4) Acute kidney injury Current Visit: Yes Status: Resolved Code(s): N17.9 - ACUTE KIDNEY FAILURE, UNSPECIFIED SNOMED Code(s): 60823501 (5) Anemia Current Visit: Yes Status: Acute Code(s): D64.9 - ANEMIA, UNSPECIFIED SNOMED Code(s): 694933129 Plan: Irrigation is slowly improving. Increase diet today as tolerated. Will add FiberCon tablets to bulk up the ileostomy output. Check with Dr. Jackson regarding antibiotic recommendations were after discharge. If he needs IV antibiotics, PICC line will be placed. Ileostomy education is scheduled for the morning. Hopefully ready for discharge in the next day or 2. Questions were encouraged and answered from patient and family
[2021-05-28] MEDS: SODIUM CHLORIDE 0.9% 1,000 ML IV SCH (19:06)
--- NOTE | 2021-05-28 22:18 | PN ---
PROGRESS NOTE DATE OF SERVICE: 05/28/2021 REASON FOR FOLLOWUP: 1. Intraabdominal abscess. 2. Leukocytosis. INTERVAL HISTORY: The patient is afebrile. The patient is breathing comfortably. The patient's abdominal pain is currently controlled. The patient denies having any chest pain, shortness of breath no nausea, no vomiting. PHYSICAL EXAMINATION: Blood pressure 154/80 with a pulse of 90, temperature 98.1. He is 98% on room air. General description is a middle-aged male lying in bed in no distress. Respiratory system: Unlabored breathing. Clear to auscultation anteriorly. Heart S1, S2. Regular rate and rhythm. Abdomen soft, mildly distended. No guarding or rigidity. LABS: Hemoglobin 7.3, white count .1, creatinine 1.14. DIAGNOSTIC IMPRESSION AND PLAN: 1. Patient with intraabdominal abscess , status post drainage of the abscess and diverting ileostomy. Unfortunately the abdominal culture has not been finalized, even after 10 days. With the ID and sensitivities on the Gram-negative and group D Enterococcus pending, that is delaying his discharge. Patient is covered with meropenem and diflucan. Discharge antibiotics on the cultures. 2. Patient with slight worsening of the white count; could be related to the right IJ. RN has been advised to discontinue the right culture and obtain a peripheral IV. Will repeat his blood work tomorrow. MMODL / IJN: [id number] /
[2021-05-29] MEDS: HYDROcodone/APAP 5-325MG 1 EACH TAB PO PRN ×3 (03:28→16:20)
[2021-05-29 06:33] LABS: African American GFR (CKD) 86 (>60 ml/min/1.73 sqM); Anion Gap 4 mmol/L; Basophils # (A) 0.1 k/uL (0-0.2); Basophils % (A) 1 %; Blood Urea Nitrogen 17 mg/dL (9-20); Calcium 8.1 mg/dL (8.4-10.2); Carbon Dioxide 31 mmol/L (22-30); Chloride 100 mmol/L (98-107); Eosinophils # (A) 0.4 k/uL (0-0.7); Eosinophils % (A) 4 %; Glucose 86 mg/dL (74-99); HCT 21.8 % (39.0-53.0); Lymphocytes # (A) 1.4 k/uL (1.0-4.8); Lymphocytes % (A) 13 %; MCH 29.2 pg (25.0-35.0); MCHC 31.8 g/dL (31.0-37.0); MCV 91.8 fL (80.0-100.0); Magnesium 1.7 mg/dL (1.6-2.3); Monocytes # (A) 0.7 k/uL (0-1.0); Monocytes % (A) 7 %; Neutrophils % (A) 75 %; Non-African American GFR(CKD) 74 (>60 ml/min/1.73 sqM); Phosphorus 4.2 mg/dL (2.5-4.5); Platelet Count 688 k/uL (150-450); Potassium 4.4 mmol/L (3.5-5.1); RBC 2.37 m/uL (4.30-5.90); RDW 13.5 % (11.5-15.5); Sodium 135 mmol/L (137-145); WBC 10.7 k/uL (3.8-10.6)
[2021-05-29 06:36] LABS: HGB 6.9 gm/dL (13.0-17.5)
[2021-05-29 07:36] LABS: C Reactive Protein 5.7 mg/dL (<1.0)
[2021-05-29] MEDS: PANTOPRAZOLE 40 MG/10 ML VIAL IVP SCH (08:27)
[2021-05-29] MEDS: lisinopriL 10 MG TAB PO SCH (08:27)
[2021-05-29] MEDS: MONTELUKAST 10 MG TAB PO SCH (08:27)
[2021-05-29] MEDS: NAPROXEN 250 MG TAB PO SCH (08:28)
[2021-05-29] MEDS: ENOXAPARIN 40 MG/0.4 ML SYRINGE SQ SCH (08:29)
[2021-05-29] MEDS: MEROPENEM 1 GM in SODIUM CHLORIDE 0.9% 100 ML IVPB SCH (08:29)
[2021-05-29] MEDS: HYDROmorphone 1 MG/ML 1 ML SYRINGE IVP PRN (08:36)
[2021-05-29] MEDS: FLUCONAZOLE IN NACL,ISO-OSM 200 MG in SALINE 1 100ML.BAG IVPB SCH (10:38)
--- NOTE | 2021-05-29 14:52 | P.PN ---
Subjective Progress Note Date: 05/29/21 Principal diagnosis: Status post drainage of abscess, bowel resection, ileostomy creation due to complicated appendicitis The patient is seen on rounds. He is eating small amounts. Doesn't like the food here. Drinking okay. Managing his ileostomy. Anxious to go home. Objective - Vital Signs Vital signs: Vital Signs Temp 98.3 F 05/29/21 05:00 Pulse 91 05/29/21 05:00 Resp 16 05/29/21 05:00 BP 135/83 05/29/21 05:00 Pulse Ox 98 05/29/21 05:00 Intake & Output 05/28/21 05/29/21 05/29/21 18:59 06:59 18:59 Intake Total 360 Output Total 3650 100 Balance -3290 -100 Weight 141.5 kg Intake: Oral 360 Output: Drainage 550 Left Upper Abdomen 0 ileostomy 550 Urine 1900 Stool 1200 100 Other: Voiding Method Urinal Urinal Urinal # Voids 5 3 - Constitutional General appearance: Present: cooperative, no acute distress - Respiratory Respiratory: bilateral: CTA - Gastrointestinal General gastrointestinal: Present: normal bowel sounds, soft Localized gastrointestinal: surgical scar: diffuse (Ileostomy with watery output. Incisions are intact without cellulitis. A small amount of serous drainage from the midline incision. No significant fluid under the right lower quadrant incision) - Labs CBC & Chem 7: 05/29/21 05:35 05/29/21 05:35 Labs: Abnormal Lab Results - Last 24 Hours (Table) 05/29/21 05/29/21 Range/Units 05:35 05:35 WBC 10.7 H (3.8-10.6) k/uL RBC 2.37 L (4.30-5.90) m/uL Hgb 6.9 L* (13.0-17.5) gm/dL Hct 21.8 L (39.0-53.0) % Plt Count 688 H (150-450) k/uL Neutrophils # 8.0 H (1.3-7.7) k/uL Sodium 135 L (137-145) mmol/L Carbon Dioxide 31 H (22-30) mmol/L Calcium 8.1 L (8.4-10.2) mg/dL C-Reactive Protein 5.7 H (<1.0) mg/dL Microbiology - Last 24 Hours (Table) 05/28/21 17:00 Catheter Tip Culture - Preliminary Catheter Tip Assessment and Plan (1) Acute appendicitis Current Visit: Yes Status: Acute Code(s): K35.80 - UNSPECIFIED ACUTE APPENDICITIS SNOMED Code(s): 37737098 (2) Acute gangrenous appendicitis with perforation and peritonitis Current Visit: Yes Status: Acute Code(s): K35.32 - ACUTE APPENDICITIS WITH PERF AND LOC PERITONITIS, W/O ABSCS SNOMED Code(s): 26297191 (3) Small bowel perforation Current Visit: Yes Status: Acute Code(s): K63.1 - PERFORATION OF INTESTINE (NONTRAUMATIC) SNOMED Code(s): 170588572 (4) Acute kidney injury Current Visit: Yes Status: Resolved Code(s): N17.9 - ACUTE KIDNEY FAILURE, UNSPECIFIED SNOMED Code(s): 37676901 (5) Anemia Current Visit: Yes Status: Acute Code(s): D64.9 - ANEMIA, UNSPECIFIED SNOMED Code(s): 902256794 Plan: Culture and sensitivity are not available in the computer. I called microbiology in [place] and the report has been finalized and faxed here. It will be forwarded to Dr. Rockwell. If the patient requires any IV antibiotics, he will need a PICC line and arrangements for the medication prior to discharge. If he is okay for discharge on oral medication he will be sent home today. We discussed at length that he needs to monitor the total amount of ileostomy output. He is to take 2 FiberCon tablets 4 times a day along with Imodium A-D 3 times a day. If ileostomy output remains high, he is to call the office and will start him on Lomotil. Questions were encouraged and answered.
[2021-05-29 15:20] VITALS: BP 124/78; PULSE 93; RESP 18; TEMP 98.9
[2021-05-29] MEDS ORDERED: LOPERAMIDE 2 MG CAP PO SCH (18:00)
--- NOTE | 2021-05-30 09:40 | P.DS ---
Providers Date of admission: 05/08/21 15:51 Expected date of discharge: 05/29/21 Attending physician: Crystal Alanis Consults: 05/17/21 15:46 Consult Physician Routine Consulting Provider: Roxanna Rockwell Consult Reason/Comments: Recommendation for antibiotics after discharge Do you want consulting provider notified?: Yes 05/19/21 13:45 Consult Physician Routine Consulting Provider: Altaf Peguero Consult Reason/Comments: Critical Care, sepsis Do you want consulting provider notified?: Already Contacted Primary care physician: Stated None - Discharge Diagnosis(es) (1) Acute appendicitis Status: Acute (2) Acute gangrenous appendicitis with perforation and peritonitis Status: Acute (3) Small bowel perforation Status: Acute (4) Acute kidney injury Status: Resolved (5) Anemia Status: Acute Hospital Course: The patient is a 40-year-old man who was transferred from [facility] with diagnosis of acute appendicitis on CT scan.He was taken to the OR where he underwent a laparoscopic appendectomy. There was no large abscess but the appendix was gangrenous and falling apart and posterior to the cecum and ileum. He was kept on IV antibiotics along with DVT and ulcer prophylaxis. He had an expected ileus. Patient developed increasing leukocytosis and distended abdomen. Pathologist called and said there was some ileal mucosa present in the pathology. He underwent a CT showing an abscess. He was taken to the OR where there was breakdown of the terminal ileum. He underwent ileocecectomy and a washout. Although entertained, an ileostomy was not done at that point because of the thickness of the patient's abdominal wall. It was not thought that a ileostomy could be brought up and seated safely in a manner that was functional. He did well for several days and then decompensated again. CT showed a abscess. He underwent a drainage procedure. The next morning the material was feculent. He was taken to the OR where he had resection of the terminal ileum and some of the ascending colon. The abdomen was washed out. Drains were placed. An ileostomy was placed in the upper mid abdomen. He was monitored in the ICU. Seen by cosmetologist and infectious disease. He slowly improved. Patient was increased on diet and activity. He received education for the ileostomy. By 12 6 the culture was finally resulted and oral antibiotics were commended by infectious disease. He was felt to be stable for discharge with home health. Patient Condition at Discharge: Good Plan - Discharge Summary Discharge Rx Participant: No New Discharge Prescriptions: New Loperamide HCl [Imodium A-D] 2 mg PO TID #100 tablet Fluconazole [Diflucan] 200 mg PO DAILY #10 tab HYDROcodone/APAP 5-325MG [[place] 5-325] 1 - 2 tab PO Q4H PRN #30 tab PRN Reason: Pain Calcium Polycarbophil [Fibercon] 1,250 mg PO QID #120 tablet Amoxic-Pot Clav 875-125Mg [Augmentin 875-125] 1 tab PO Q12HR 10 Days #20 tab No Action lisinopriL [Zestril] 10 mg PO DAILY Montelukast Sodium [Singulair] 10 mg PO DAILY Discharge Medication List Montelukast Sodium [Singulair] 10 mg PO DAILY 05/07/21 [History] lisinopriL [Zestril] 10 mg PO DAILY 05/07/21 [History] HYDROcodone/APAP 5-325MG [[place] 5-325] 1 - 2 tab PO Q4H PRN #30 tab 05/17/21 [Rx] Amoxic-Pot Clav 875-125Mg [Augmentin 875-125] 1 tab PO Q12HR 10 Days #20 tab 05/29/21 [Rx] Calcium Polycarbophil [Fibercon] 1,250 mg PO QID #120 tablet 05/29/21 [Rx] Fluconazole [Diflucan] 200 mg PO DAILY #10 tab 05/29/21 [Rx] Loperamide HCl [Imodium A-D] 2 mg PO TID #100 tablet 05/29/21 [Rx] Follow up Appointment(s)/Referral(s): Crystal Alanis DO [Doctor of Osteopathic Medicine] - 06/06/21 9:30 am Darrell Roberts MD [REFERRING] - 06/08/21 8:30 am [facility], [NON-STAFF] - 1-2 Days Patient Instructions/Handouts: Ileostomy Care (GEN), Staple Care (DC) Activity/Diet/Wound Care/Special Instructions: Ileostomy Recommendations for Home: Last complete pouching system change: 05.29.2021 Mr Felix will have the following ileostomy supplies from the hospital when discharge for home: [facility] moldable flange #[id number] & # [id number] (2) of each [facility] pouch with filter #[id number] (2) & # [id number] (2) No Sting prep pads (12) Ostomy powder (1) Mr Felix is to change the entire pouching system every 3-5 days Empty the pouching system when it is 1/2 to 1/3 full Mr Felix will be receiving free samples for ileostomy care from [facility] approximately 5-7 days after discharge No lifting greater than 10 pounds. No driving for 2 weeks. Wound is to be irrigated daily with normal saline. Pack with 1/4 inch gauze. May shower prior to wound dressing change. Cover with ABD pad. Monitor the total amount of drainage from the ileostomy. If it is consistently 2263-4944 mL's per day, call my office. You would be at risk of dehydration Eat a yogurt daily or take probiotic daily recall if questions or concerns Discharge/Stand Alone Forms: Work/School Release / Restrict, Personal Ccie Discharge Disposition: HOME WITH HOME HEALTH SERVICES
== END 2021-05-29 16:48 | disposition home health service (06) | DRG 329 ==
LOC: EC 09:34 → 6NMEDSUR 11:35 → OBSVTOIN 05-08 15:51 → 4SSUR 05-17 16:35 → 6NMEDSUR 05-17 16:43 → 2SICU 05-19 14:47 → 5NMEDONC 05-24 19:08
PROVIDERS: ADMIT Surgery; ATTEND Surgery
PROC: 0DTJ4ZZ Resection of Appendix, Percutaneous Endoscopic Approach (ICD-10-PCS; principal; 2021-05-07 11:43)
PROC: 0DTH0ZZ Resection of Cecum, Open Approach (ICD-10-PCS; 2021-05-10)
PROC: 0DBB0ZZ Excision of Ileum, Open Approach (ICD-10-PCS; 2021-05-10)
PROC: 0D1B0Z4 Bypass Ileum to Cutaneous, Open Approach (ICD-10-PCS; 2021-05-10)
PROC: 02HV33Z Insertion of Infusion Device into Superior Vena Cava, Percutaneous Approach (ICD-10-PCS; 2021-05-10)
PROC: 0W9G30Z Drainage of Peritoneal Cavity with Drainage Device, Percutaneous Approach (ICD-10-PCS; 2021-05-19)
PROC: 0DBB0ZZ Excision of Ileum, Open Approach (ICD-10-PCS; 2021-05-20)
PROC: 0WQF0ZZ Repair Abdominal Wall, Open Approach (ICD-10-PCS; 2021-05-20)
PROC: 0DNW0ZZ Release Peritoneum, Open Approach (ICD-10-PCS; 2021-05-20)
PROC: 0D9670Z Drainage of Stomach with Drainage Device, Via Natural or Artificial Opening (ICD-10-PCS; 2021-05-20)
PROC: 3E1M38Z Irrigation of Peritoneal Cavity using Irrigating Substance, Percutaneous Approach (ICD-10-PCS; 2021-05-20)
PROC: 2W53X6Z Removal of Pressure Dressing on Abdominal Wall (ICD-10-PCS; 2021-05-20)
PROC: 05HM33Z Insertion of Infusion Device into Right Internal Jugular Vein, Percutaneous Approach (ICD-10-PCS; 2021-05-20)
PROC: 3E0436Z Introduction of Nutritional Substance into Central Vein, Percutaneous Approach (ICD-10-PCS; 2021-05-22)
DX: K35.32 Acute appendicitis with perforation, localized peritonitis, and gangrene, without abscess (principal); K63.1 Perforation of intestine (nontraumatic); K65.1 Peritoneal abscess; A41.9 Sepsis, unspecified organism; N17.0 Acute kidney failure with tubular necrosis; T81.30XA Disruption of wound, unspecified, initial encounter; T81.43XA Infection following a procedure, organ and space surgical site, initial encounter; D62 Acute posthemorrhagic anemia; K56.7 Ileus, unspecified; K92.1 Melena; B37.89 Other sites of candidiasis; K66.0 Peritoneal adhesions (postprocedural) (postinfection); R19.7 Diarrhea, unspecified; I95.9 Hypotension, unspecified; B95.2 Enterococcus as the cause of diseases classified elsewhere; B96.20 Unspecified Escherichia coli [E. coli] as the cause of diseases classified elsewhere; B96.89 Other specified bacterial agents as the cause of diseases classified elsewhere; D75.838 Other thrombocytosis; D64.9 Anemia, unspecified; F17.210 Nicotine dependence, cigarettes, uncomplicated; Z20.822 Contact with and (suspected) exposure to COVID-19; Z79.899 Other long term (current) drug therapy; Z87.19 Personal history of other diseases of the digestive system
CPT/HCPCS: 36600; 71045; 71260; 74177; 75989; 80048; 80051; 80053; 80202; 81001; 82040; 82330; 82565; 82805; 82947; 83605; 83735; 84100; 84478; 84520; 85025; 85027; 85610; 85730; 86140; 86850; 86900; 86901; 86920; 87040; 87070; 87075; 87077; 87186; 87205; 87635; 88304; 88307; 94002; 94003; 96365; 96375; 99284